=== PATIENT | female | born 2000 | race Caucasian/White ===

== ENCOUNTER 2023-10-20 11:00 | Outpatient (AMB) | payer BC, SELFPAY ==
--- NOTE | 2023-10-20 11:05 | A.OFFVIS_ITS ---
Intake Vital Signs 10/20/23 11:17 Height 5 ft 4 in Weight 168 lb BMI 28.8 BP 124/76 Blood Pressure Location Lt brachial Position Sitting Respiration 17 Pulse 88 Pulse Source Pulse Oximeter Pulse Oximetry (%) 98 Oxygen Delivery Method Room Air Intake Visit Reasons: Herniation of Lumbar Muscles/confirmed Allergies No Known Allergies Allergy (Verified 10/20/23 11:09) HPI HPI Comments History of Present Illness Details Stephenie is a very pleasant 24-year-old female who presents the office today for evaluation management of her chronic lower back pain. Patient reports that she has been suffering with pain across her lower back, with occasional radiation up into her middle back, for approximately 3 years. She states she had a lipoma removed in 2019 and the pain started about 6 months after that. She denies radiation of the pain into the buttocks, groin or either leg. She is currently taking Tylenol and Advil for the pain. She tried Celebrex in the past but did not tolerate it. She has attempted physical therapy without relief of her pain, she continues with home exercise program. Approximately 6 months ago she tried manual manipulation with chiropractor and acupuncture, neither of which improved her pain. She does use heat and ice packs at home with some relief of her pain. She was evaluated several months ago by the surgeon who removed the lipoma, an MRI was performed, results as per below. Patient also complaining of burning, aching, stabbing, pins and needles to both feet. Patient is known type 1 diabetic but reports that her A1c daily blood glucose levels are well controlled. She reports that her father has a history of non diabetic neuropathy. She was recently fitted for orthotics from her primary care doctor and is being treated for plantar fascitis. Patient denies red flag symptoms including new loss of bowel, bladder or saddle anesthesia. Pain today is rated as a 5/10, constant in frequency, worse during the day and in the evening. In terms of muscle damage condition is described as aching, spasming, tiring, exhausting and throbbing. Pain is negatively impacting patient's general activity, mood, normal work, recreational activities, sleep, walking and bending over. 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 [facility] Medical History (Updated 10/20/23 @ 12:59 by Brisa Verdugo, REMEDIATION CONSULTANT, BOOK SEWER) Herpes simplex type 1 infection Type 1 diabetes mellitus Moderate recurrent major depression Generalized anxiety disorder Polycystic ovary Social History (Updated 10/20/23 @ 11:17 by Christiane Farmer) Household Members: Spouse Housing: Apartment Alcohol intake: current Patient Tobacco Use Status: Never used Tobacco Substance Use Type: Marijuana and Caffiene service: No Current occupational status: unemployed Review of Systems Const All systems reviewed & are unremarkable except as noted in HPI and below Physical Exam Vital Signs: Last Vital Signs Pulse 88 10/20/23 11:17 Resp 17 10/20/23 11:17 BP 124/76 10/20/23 11:17 Pulse Ox 98 10/20/23 11:17 Oxygen Delivery Method Room Air 10/20/23 11:17 BMI result Body Mass Index 28.8 General: awake, alert, oriented. Answers questions appropriately. Fully engaged in examination. Skin: warm, dry, intact HEENT: Normocephalic. Hearing intact. Cardiac: External chest normal in appearance. Respiratory: No cough, audible wheezing or stridor. Abdomen: without gross distension. MS: No obvious swelling or deformities. Able to stand on bilateral tiptoes and bilateral heels.? Able to transition from sit to stand unassisted. Ambulates with bilaterally normal heel strike and toe off Diffuse tenderness across the lower back, nontender over midline lumbar vertebrae SLR with without dorsiflexion negative bilaterally ROM intact Neurological: Oriented to person, place, time and situation. Thought process intact. No gait abnormalities appreciated. Psychiatric: Appropriate mood and affect. Good judgment and insight. Results Reviewed Results Reviewed: 08/10/2023 MRI lumbar spine with and without contrast Lumbar findings: Alignment and vertebrae normal. No compression fracture. Left facet arthropathy L2-3, L3-4 and L4-5. Impression: No focal soft tissue mass or collection corresponding to the 2 skin markers present along the bilateral lower lumbar regions. Mild linear subcutaneous signal abnormality subjacent to the left skin marker extending to the skin surface may reflect postsurgical change from reported prior lipoma excision. Assessment & Plan Assessment & Plan (1) Myofascial muscle pain: Code(s): M79.18 - Myalgia, other site (2) Lumbar facet arthropathy: Code(s): M47.816 - Spondylosis without myelopathy or radiculopathy, lumbar region (3) Diabetic peripheral neuropathy: Code(s): E11.42 - Type 2 diabetes mellitus with diabetic polyneuropathy Plan Stephenie is a very pleasant 23-year-old female presented to the office today for evaluation management of her chronic back pain. History, physical exam and provocative testing consistent with myofascial back pain, lumbar facet arthropathy and diabetic neuropathy. Patient has tried xmje-wys-[id number] medications, physical therapy, acupuncture and chiropractor without improvement her symptoms. Gabapentin 100 mg by mouth 3 times daily. Patient instructed on cautions for use. Cyclobenzaprine 5 mg by mouth 3 times daily as needed for muscle spasms. Patient instructed on cautions for use. Diclofenac 1% topical apply 4 times daily as needed. Do not take with any other nonsteroidal anti-inflammatory medications. TENS unit ordered. Patient instructed on use, pamphlet with instructions provided to patient. All questions and concerns are answered during visit. Patient presents plan. Follow-up in 1 month, sooner if needed. Medications: New gabapentin 100 mg PO TID 90 caps 1RF diclofenac sodium 1% (Arthritis Pain (diclofenac)) apply to single knee, ankle, foot; for foot includes sole/toes/top of foot 4 grams topical QID 100 grams 0RF cyclobenzaprine 5 mg PO TID PRN 90 tabs 0RF muscle spasm Coding Level of Care Code New Pt Level 4 (82016) Diagnoses Myofascial muscle pain M79.18 Lumbar facet arthropathy M47.816 Diabetic peripheral neuropathy E11.42
[2023-10-20 11:17] VITALS: BP 124/76; PULSE 88; RESP 17; O2SAT 98; BMI 28.8
== END 2023-10-20 11:54 | disposition home or self-care (01) ==
PROVIDERS: PCP Family Medicine; Referring Provider Family Medicine; Visit Provider Registered Nurse Emergency
DX: M79.18 Myalgia, other site (principal); M47.816 Spondylosis without myelopathy or radiculopathy, lumbar region; E11.42 Type 2 diabetes mellitus with diabetic polyneuropathy
CPT/HCPCS: 99204

== ENCOUNTER → 2023-10-20 11:00 | Outpatient (BNVA) | payer BC, SELFPAY | PROVIDERS: PCP Family Medicine; Referring Provider Family Medicine; Visit Provider Registered Nurse Emergency ==

== ENCOUNTER 2023-11-17 11:30 | Outpatient (AMB) | payer BC, SELFPAY ==
[2023-11-17 11:33] VITALS: BP 130/94; PULSE 98; O2SAT 99; BMI 29.5
--- NOTE | 2023-11-17 11:33 | MHC.OFFVIS ---
Intake Vital Signs 11/17/23 11:33 Height 5 ft 4 in Weight 172 lb BMI 29.5 BP 130/94 H Blood Pressure Location Lt radial Position Sitting Pulse 98 Pulse Source Pulse Oximeter Pulse Oximetry (%) 99 Oxygen Delivery Method Room Air Intake Visit Reasons: Follow Up/Herniation of Lumbar Muscles - LVM Intake Note: Patient reports pain level being a 7/10. 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 Patient reports some relief with gabapentin, denies side effects. States no change in her pain with Flexeril. She is still awaiting Tens unit as it was originally sent to the wrong address and needed to be reshipped. She was recently diagnosed with Endometriosis, undergoing treatment for that with plan for HRT. Prior: Stephenie is a very pleasant 24-year-old female who presents the office today for evaluation management of her chronic lower back pain. Patient reports that she has been suffering with pain across her lower back, with occasional radiation up into her middle back, for approximately 3 years. She states she had a lipoma removed in 2019 and the pain started about 6 months after that. She denies radiation of the pain into the buttocks, groin or either leg. She is currently taking Tylenol and Advil for the pain. She tried Celebrex in the past but did not tolerate it. She has attempted physical therapy without relief of her pain, she continues with home exercise program. Approximately 6 months ago she tried manual manipulation with chiropractor and acupuncture, neither of which improved her pain. She does use heat and ice packs at home with some relief of her pain. She was evaluated several months ago by the surgeon who removed the lipoma, an MRI was performed, results as per below. Patient also complaining of burning, aching, stabbing, pins and needles to both feet. Patient is known type 1 diabetic but reports that her A1c daily blood glucose levels are well controlled. She reports that her father has a history of non diabetic neuropathy. She was recently fitted for orthotics from her primary care doctor and is being treated for plantar fascitis. Patient denies red flag symptoms including new loss of bowel, bladder or saddle anesthesia. Pain today is rated as a 5/10, constant in frequency, worse during the day and in the evening. In terms of muscle damage condition is described as aching, spasming, tiring, exhausting and throbbing. Pain is negatively impacting patient's general activity, mood, normal work, recreational activities, sleep, walking and bending over. 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 [facility] Medical History (Updated 10/20/23 @ 12:59 by Brisa Verdugo, AGENT CONTRACT CLERK, BOTTLE FILLER) Herpes simplex type 1 infection Type 1 diabetes mellitus Moderate recurrent major depression Generalized anxiety disorder Polycystic ovary Social History (Updated 10/20/23 @ 11:17 by Christiane Farmer) Household Members: Spouse Housing: Apartment Alcohol intake: current Patient Tobacco Use Status: Never used Tobacco Substance Use Type: Marijuana and Caffiene service: No Current occupational status: unemployed Review of Systems Const All systems reviewed & are unremarkable except as noted in HPI and below Physical Exam Vital Signs: Last Vital Signs Pulse 98 11/17/23 11:33 BP 130/94 H 11/17/23 11:33 Pulse Ox 99 11/17/23 11:33 Oxygen Delivery Method Room Air 11/17/23 11:33 BMI result Body Mass Index 29.5 General: awake, alert, oriented. Answers questions appropriately. Fully engaged in examination. Skin: warm, dry, intact HEENT: Normocephalic. Hearing intact. Cardiac: External chest normal in appearance. Respiratory: No cough, audible wheezing or stridor. Abdomen: without gross distension. MS: No obvious swelling or deformities. Able to transition from sit to stand unassisted. Ambulates with bilaterally normal heel strike and toe off SLR with without dorsiflexion negative bilaterally ROM intact Facet loading positive Neurological: Oriented to person, place, time and situation. Thought process intact. No gait abnormalities appreciated. Psychiatric: Appropriate mood and affect. Good judgment and insight. Results Reviewed Results Reviewed: 03/2023 [facility] Consult note: Assessment & Plan Assessment & Plan (1) Myofascial muscle pain: Code(s): M79.18 - Myalgia, other site (2) Lumbar facet arthropathy: Code(s): M47.816 - Spondylosis without myelopathy or radiculopathy, lumbar region (3) Diabetic peripheral neuropathy: Code(s): E11.42 - Type 2 diabetes mellitus with diabetic polyneuropathy Plan Stephenie is a very pleasant 23-year-old female presented to the office today for follow up. Patient has failed conservative therapy including ujoa-khy-zkjhwzh medications, physical therapy, HEP, acupuncture and chiropractor; pain persists. Will increase gabapentin to 300mg po BID C/W Cyclobenzaprine 5 mg by mouth 3 times daily as needed for muscle spasms. Consider changing to Tizanidine 2mg po BID if patient does not report improvement in symptoms by next visit. C/W Diclofenac 1% topical apply 4 times daily as needed. Do not take with any other nonsteroidal anti-inflammatory medications. TENS unit ordered at last visit. Patient instructed on use, pamphlet with instructions provided to patient. Discussed options for treatment including diagnostic interventional testing, epidural steroid injections, peripheral nerve stimulation with Sprint, RFA and more permanent neuromodulation. Will schedule for Fluoroscopy guided bilateral diagnostic L3 L4 DR L5 MBBs with local anesthetic. All questions and concerns have been answered and patient agrees with the plan. Follow up after injections and sooner if needed. Medications: New gabapentin 300 mg PO BID 60 caps 2RF Coding Level of Care Code Est Pt Level 4 (40367) Diagnoses Myofascial muscle pain M79.18 Lumbar facet arthropathy M47.816 Diabetic peripheral neuropathy E11.42
== END 2023-11-17 11:52 | disposition home or self-care (01) ==
PROVIDERS: PCP Family Medicine; Visit Provider Registered Nurse Emergency
DX: M79.18 Myalgia, other site (principal); M47.816 Spondylosis without myelopathy or radiculopathy, lumbar region; E11.42 Type 2 diabetes mellitus with diabetic polyneuropathy
CPT/HCPCS: 99214

== ENCOUNTER → 2023-11-17 11:30 | Outpatient (BNVA) | payer BC, SELFPAY | PROVIDERS: PCP Family Medicine; Visit Provider Registered Nurse Emergency ==

== ENCOUNTER 2024-01-16 06:12 | Outpatient (REF) | payer BC, SELFPAY ==
--- NOTE | ~2024-01-16 | FL_ITS ---
EXAMINATION: XR FLUOROSCOPY WITH IMAGES CLINICAL INFORMATION: Bilateral lumbar pain injections. COMPARISON: None available. TECHNIQUE: Fluoroscopy Supervised By: Dr. Glenis Post. Fluoroscopy Time: 0.6. Cumulative Dose: 8.32 mGy. DAP: 2.27 Gycm2. Images: 6. FINDINGS: The submitted images show injection needles and injected contrast at the levels of the bilateral L3-L4 through L5-S1 neural foramina. FL/FL guidance in treatment room IMPRESSION: Intraoperative fluoroscopic guidance is provided during lumbar pain management injections. Please see the patient's Operative Report for full procedural details.
== END 2024-01-16 06:13 | disposition home or self-care (01) ==
LOC: CF 06:12
PROVIDERS: Visit Provider Anesthesiology
DX: M47.816 Spondylosis without myelopathy or radiculopathy, lumbar region (principal)
CPT/HCPCS: 64493; 64494; J2795; Q9967

== ENCOUNTER 2024-01-16 09:31 | Outpatient (AMB) | payer BC, SELFPAY ==
[2024-01-16 09:40] VITALS: BP 118/60; PULSE 117; RESP 14; O2SAT 98; BMI 29.2
--- NOTE | 2024-01-16 09:40 | A.OFFVIS_ITS ---
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: No Accompanied by: Spouse Allergies No Known Allergies Allergy (Verified 01/16/24 09:41) [facility] Medical History (Updated 10/20/23 @ 12:59 by Brisa Verdugo, METAL CASTING TRADES WORKER, ACCOUNTANT MANAGER) Herpes simplex type 1 infection Type 1 diabetes mellitus Moderate recurrent major depression Generalized anxiety disorder Polycystic ovary Social History (Updated 10/20/23 @ 11:17 by Christiane Farmer) Household Members: Spouse Housing: Apartment Alcohol intake: current Patient Tobacco Use Status: Never used Tobacco Substance Use Type: Marijuana and Caffiene service: No Current occupational status: unemployed Physical Exam Vital Signs: Last Vital Signs Pulse 117 H 01/16/24 09:40 Resp 14 01/16/24 09:40 BP 118/60 01/16/24 09:40 Pulse Ox 98 01/16/24 09:40 Oxygen Delivery Method Room Air 01/16/24 09:40 BMI result Body Mass Index 29.2 Assessment & Plan Assessment & Plan (1) Lumbar facet arthropathy: Code(s): M47.816 - Spondylosis without myelopathy or radiculopathy, lumbar region Plan Diagnostic medial branch block L3,L4 dorsal ramus L5 bilateral.? ? ?Informed consent was explained to the patient. All questions were explained and? answered.? The patient was taken inside the operating room where she was positioned prone on the operating table. Time-out was performed delineating correct site, side, the nature of the procedure, patient's allergy, . All operating room staff was participating in OR time-out procedure. ? ? The lower back was prepped with ChloraPrep and draped with sterile towels.? C-arm was brought over the operating field and sq picture of L4-, L5 vertebra and S1 AREA were delineated on the screen.? Point of interest were delineated as confluence of superior articular process of L4 and L5 vertebra bilaterally with corresponding transverse processes as well as confluence of the sacral alae bilaterally with superior articular process of S1.? The projection of the point of interest to the skin were injected with the small amount of local anesthetic lidocaine 2% 1-1.5 cc.? After that 22 gauge 3.5 inch spinal needle was driven sequentially to the points of interest in tunnel vision fashion. At the left L4 position the silhouette of the left transverse process appear to be very thin, advancement of the needle resulted in paresthesia burning painful sensation going down the left lower extremity all the way to her toes. The needle was immediately withdrawn , the patient reported the pain subsiding. I offered patient to stop the procedure and schedule it under sedation, I explained to the patient that most likely the needle when close to her left L3 peripheral nerve. Patient insisted on continuing the procedure. The needle was reinserted and redirected more to the center of the projection of the pedicle. After needles gently contacted the bone at the point of interests the needle was injected with small amount of the contrast.? The injection of the contrast did not demonstrate any intravascular or intrathecal spread of the contrast.? Injection of the ropivacaine 0.5% performed at each needle location.??The needles were withdrawn and Band-Aids were applied The patient tolerated procedure well, she denied any pain shooting down the lower extremity on the left she denied any numbness in the lower extremity she was able to demonstrate normal symmetrical strength of bilateral lower extremities. She went home without immediate complication. Orders: Orders FL guidance in treatment room Today M47.816 - Spondylosis without myelopathy or radiculopathy, lumbar region KERRI Yanes Medications: Refilled cyclobenzaprine 5 mg PO TID PRN 90 tabs 0RF muscle spasm Trey Maya MD Coding Level of Care Code Procedure Only Diagnoses Lumbar facet arthropathy M47.816
== END 2024-01-16 10:04 | disposition home or self-care (01) ==
LOC: HO.PMCPRC 09:31
PROVIDERS: PCP Family Medicine; Visit Provider Anesthesiology
DX: M47.816 Spondylosis without myelopathy or radiculopathy, lumbar region (principal)
CPT/HCPCS: 64493; 64494

== ENCOUNTER 2024-01-26 09:30 | Outpatient (AMB) | payer BC, SELFPAY ==
[2024-01-26 09:39] VITALS: BP 130/89; PULSE 94; RESP 18; O2SAT 97; BMI 29.2
--- NOTE | 2024-01-26 09:39 | MHC.OFFVIS ---
Intake Vital Signs 01/26/24 09:39 Height 5 ft 4 in Weight 170 lb BMI 29.2 BP 130/89 Blood Pressure Location Lt brachial Position Sitting Respiration 18 Pulse 94 Pulse Source Pulse Oximeter Pulse Oximetry (%) 97 Oxygen Delivery Method Room Air Intake Visit Reasons: BILATERAL DIAGNOSTIC L3, L4, DRL5 MBB Allergies No Known Allergies Allergy (Verified 01/26/24 09:39) HPI HPI Comments History of Present Illness Details Patient presents the office today for follow-up, 10 days status post bilateral diagnostic L3-L4 DR L5 medial branch blocks with local anesthetic. She reports pain today is 9/10, no relief after the injections. If anything they made it worse . According to the records injections were somewhat difficult, patient did not tolerate well and at one point there was question of irritation to the nerve with pain down the leg. 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 Continues with gabapentin, tolerating well. Has been taking Flexeril with some improvement, stopped for a couple days and notes that the muscle spasms worsened. Had recently requested a dose increase because she felt that the effects were not as good as they were initially. Prior: Stephenie presents back to the office today for follow up lower back pain. Patient reports some relief with gabapentin, denies side effects. States no change in her pain with Flexeril. She is still awaiting Tens unit as it was originally sent to the wrong address and needed to be reshipped. She was recently diagnosed with Endometriosis, undergoing treatment for that with plan for HRT. Prior: Stephenie is a very pleasant 24-year-old female who presents the office today for evaluation management of her chronic lower back pain. Patient reports that she has been suffering with pain across her lower back, with occasional radiation up into her middle back, for approximately 3 years. She states she had a lipoma removed in 2019 and the pain started about 6 months after that. She denies radiation of the pain into the buttocks, groin or either leg. She is currently taking Tylenol and Advil for the pain. She tried Celebrex in the past but did not tolerate it. She has attempted physical therapy without relief of her pain, she continues with home exercise program. Approximately 6 months ago she tried manual manipulation with chiropractor and acupuncture, neither of which improved her pain. She does use heat and ice packs at home with some relief of her pain. She was evaluated several months ago by the surgeon who removed the lipoma, an MRI was performed, results as per below. Patient also complaining of burning, aching, stabbing, pins and needles to both feet. Patient is known type 1 diabetic but reports that her A1c daily blood glucose levels are well controlled. She reports that her father has a history of non diabetic neuropathy. She was recently fitted for orthotics from her primary care doctor and is being treated for plantar fascitis. Patient denies red flag symptoms including new loss of bowel, bladder or saddle anesthesia. Pain today is rated as a 5/10, constant in frequency, worse during the day and in the evening. In terms of muscle damage condition is described as aching, spasming, tiring, exhausting and throbbing. Pain is negatively impacting patient's general activity, mood, normal work, recreational activities, sleep, walking and bending over. 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 [facility], [facility] Medical History (Updated 10/20/23 @ 12:59 by Brisa Verdugo, GARAGE DOOR OPENER INSTALLER, [employer]) Herpes simplex type 1 infection Type 1 diabetes mellitus Moderate recurrent major depression Generalized anxiety disorder Polycystic ovary Social History (Updated 10/20/23 @ 11:17 by Christiane Farmer) Household Members: Spouse Housing: Apartment Alcohol intake: current Patient Tobacco Use Status: Never used Tobacco Substance Use Type: Marijuana and Caffiene service: No Current occupational status: unemployed Review of Systems Const All systems reviewed & are unremarkable except as noted in HPI and below Physical Exam Vital Signs: Last Vital Signs Pulse 94 01/26/24 09:39 Resp 18 01/26/24 09:39 BP 130/89 01/26/24 09:39 Pulse Ox 97 01/26/24 09:39 Oxygen Delivery Method Room Air 01/26/24 09:39 BMI result Body Mass Index 29.2 General: awake, alert, oriented. Answers questions appropriately. Fully engaged in examination. Skin: warm, dry, intact HEENT: Normocephalic. Hearing intact. Cardiac: External chest normal in appearance. Respiratory: No cough, audible wheezing or stridor. Abdomen: without gross distension. MS: No obvious swelling or deformities. Able to transition from sit to stand unassisted. Ambulates with bilaterally normal heel strike and toe off SLR with without dorsiflexion negative bilaterally ROM intact Facet loading positive Neurological: Oriented to person, place, time and situation. Thought process intact. No gait abnormalities appreciated. Psychiatric: Appropriate mood and affect. Good judgment and insight. Results Reviewed Results Reviewed: 08/10/202303/2023 [facility] Consult note: Assessment & Plan Assessment & Plan (1) Myofascial muscle pain: Code(s): M79.18 - Myalgia, other site (2) Lumbar facet arthropathy: Code(s): M47.816 - Spondylosis without myelopathy or radiculopathy, lumbar region (3) Diabetic peripheral neuropathy: Code(s): E11.42 - Type 2 diabetes mellitus with diabetic polyneuropathy Plan Stephenie is a very pleasant 23-year-old female presented to the office today for follow up, 10 days status post L3-L4 DR L5 medial branch blocks with local anesthetic Patient has failed conservative therapy including [id number] medications, physical therapy, HEP, acupuncture and chiropractor; pain persists. Will increase gabapentin to 300mg po TID Discontinue Cyclobenzaprine, will trial tizanidine 2 mg by mouth 3 times daily as needed for muscle spasms. Patient advised on cautions for use. Continue with TENS unit ordered. Advised patient I will discuss with Dr. Maya potential repeat of her medial branch blocks under sedation versus repeating MRI to further evaluate the reported anatomical anomaly. All questions and concerns have been answered and patient agrees with the plan. Will call patient to review care plan after discussing with Dr. Maya. Medications: New tizanidine May cause drowsiness. Do not combine with alcohol or other BALLOON TESTER suppressants. Discontinue use of cyclobenzaprine before starting this medication. Hold for weakness, dizziness, syncope, slow heart rate or low blood pressure 2 mg PO TID PRN 90 tabs 3RF muscle spasticity Changed From gabapentin 300 mg PO BID 60 caps 2RF To gabapentin 300 mg PO Q8H 90 caps 2RF Coding Level of Care Code Est Pt Level 4 (65093) Diagnoses Myofascial muscle pain M79.18 Lumbar facet arthropathy M47.816 Diabetic peripheral neuropathy E11.42
== END 2024-01-26 10:13 | disposition home or self-care (01) ==
PROVIDERS: PCP Family Medicine; Visit Provider Registered Nurse Emergency
DX: M79.18 Myalgia, other site (principal); M47.816 Spondylosis without myelopathy or radiculopathy, lumbar region; E11.42 Type 2 diabetes mellitus with diabetic polyneuropathy
CPT/HCPCS: 99214

== ENCOUNTER → 2024-01-26 09:30 | Outpatient (BNVA) | payer BC, SELFPAY | PROVIDERS: PCP Family Medicine; Visit Provider Registered Nurse Emergency ==

== ENCOUNTER 2024-04-05 11:28 | Day surgery (SDC) | payer BC, SELFPAY ==
--- NOTE | 2024-04-04 10:04 | P.CONAN_ITS ---
Documented by User: Olena Dumont NP 04/04/24 10:05 HPI - Anesthesia Eval Consult details Narrative: 23yo F for Bilateral Diagnostic L3-L4 Dorsal Ramus L5 Medial Branch Block PMFSH Active Problems Active Problems: All Active Problems Diabetic peripheral neuropathy (Acute) Lumbar facet arthropathy (Acute) Myofascial muscle pain (Acute) Past Medical History Medical History (Updated 10/20/23 @ 12:59 by Brisa Verdugo, SALES SUPPORT ENGINEER, AUTO AIR CONDITIONING INSTALLER) Herpes simplex type 1 infection Type 1 diabetes mellitus Moderate recurrent major depression Generalized anxiety disorder Polycystic ovary Surgical History Surgical History (Updated 04/05/24 @ 11:50 by Mare Farfan) History of skin surgery H/O laparoscopy History of carpal tunnel release Social History Social History (Updated 10/20/23 @ 11:17 by Christiane Farmer) Household Members: Spouse Housing: Apartment Alcohol intake: current Alcohol intake frequency: a few times a month Patient Tobacco Use Status: Never used Tobacco Use of substances other than those prescribed or required for medical reasons: Yes Substance Use Type: Marijuana and Caffiene Substance Use Frequency: Daily Are you DNR?: No Advance Directives: No Advance Directives Information Provided: Yes service: No Current occupational status: unemployed Meds Allergies Allergy/AdvReac Type Severity Reaction Status Date / Time No Known Allergies Allergy Verified 04/05/24 11:50 Home Medications ?Medication ?Instructions ?Recorded ?Confirmed ?Last Taken ?Type acyclovir 400 mg tablet 400 mg PO BID 10/17/23 04/05/24 04/05/24 History blood sugar diagnostic (FreeStyle #10 ea 10/17/23 Unknown History Test strips) blood-glucose sensor (Dexcom G6 #1 ea 10/17/23 Unknown History Sensor device) blood-glucose transmitter (Dexcom #1 ea 10/17/23 Unknown History G6 Transmitter device) bupropion HCl 300 mg 24 hr tablet, 300 mg PO DAILY 10/17/23 04/05/24 04/05/24 History extended release fluconazole 150 mg tablet 150 mg PO DAILY PRN yeast 10/17/23 04/05/24 Unknown History infections fluticasone propionate 50 2 spray intranasal DAILY 10/17/23 04/05/24 Unknown History mcg/actuation nasal spray,suspension insulin aspart (niacinamide) See Rx Instructions .Route .COMPLEX 10/17/23 04/05/24 Unknown History (U-100) 100 unit/mL subcutaneous solution (Fiasp U-100 Insulin) insulin pump cart,automated,BT #5 ea 10/17/23 Unknown History (Omnipod 5 G6 Pods (Gen 5) subcutaneous cartridge) insulin pump cartridge,automated #1 ea 10/17/23 Unknown History dose,BT with controller subcutaneous (Omnipod 5 G6 Intro Kit (Gen 5) subcutaneous cartridge with controller) ondansetron HCl 8 mg tablet 8 mg PO TID 10/17/23 04/05/24 Unknown History pantoprazole 40 mg tablet,delayed 40 mg PO DAILY 10/17/23 04/05/24 04/05/24 Hi story release fluoxetine 20 mg capsule 60 mg PO QAM 04/05/24 04/05/24 04/05/24 History leuprolide 3.75 mg intramuscular 3.75 mg IM DIRECTED 04/05/24 04/05/24 Unknown History syringe kit (Lupron Depot) Assessment and Plan Assessment Anesthesia Assessment: Chart Reviewed Documented by User: Sasha Fischer MD 04/05/24 12:52 [facility] Past Medical History Medical History (Updated 10/20/23 @ 12:59 by Brisa Verdugo, SALES SUPPORT ENGINEER, AUTO AIR CONDITIONING INSTALLER) Herpes simplex type 1 infection Type 1 diabetes mellitus Moderate recurrent major depression Generalized anxiety disorder Polycystic ovary Family History Family history of problems with anesthesia: No Surgical History Surgical History (Updated 04/05/24 @ 11:50 by Mare Farfan) History of skin surgery H/O laparoscopy History of carpal tunnel release History of Problems with Anesthesia: No Social History Social History (Updated 10/20/23 @ 11:17 by Christiane Farmer) Household Members: Spouse Housing: Apartment Alcohol intake: current Alcohol intake frequency: a few times a month Patient Tobacco Use Status: Never used Tobacco Use of substances other than those prescribed or required for medical reasons: Yes Substance Use Type: Marijuana and Caffiene Substance Use Frequency: Daily Are you DNR?: No Advance Directives: No Advance Directives Information Provided: Yes service: No Current occupational status: unemployed Meds Allergies Allergy/AdvReac Type Severity Reaction Status Date / Time No Known Allergies Allergy Verified 04/05/24 11:50 Home Medications ?Medication ?Instructions ?Recorded ?Confirmed ?Last Taken ?Type acyclovir 400 mg tablet 400 mg PO BID 10/17/23 04/05/24 04/05/24 History blood sugar diagnostic (FreeStyle #10 ea 10/17/23 Unknown History Test strips) blood-glucose sensor (Dexcom G6 #1 ea 10/17/23 Unknown History Sensor device) blood-glucose transmitter (Dexcom #1 ea 10/17/23 Unknown History G6 Transmitter device) bupropion HCl 300 mg 24 hr tablet, 300 mg PO DAILY 10/17/23 04/05/24 04/05/24 History extended release fluconazole 150 mg tablet 150 mg PO DAILY PRN yeast 10/17/23 04/05/24 Unknown History infections fluticasone propionate 50 2 spray intranasal DAILY 10/17/23 04/05/24 Unknown History mcg/actuation nasal spray,suspension insulin aspart (niacinamide) See Rx Instructions .Route .COMPLEX 10/17/23 04/05/24 Unknown History (U-100) 100 unit/mL subcutaneous solution (Fiasp U-100 Insulin) insulin pump cart,automated,BT #5 ea 10/17/23 Unknown History (Omnipod 5 G6 Pods (Gen 5) subcutaneous cartridge) insulin pump cartridge,automated #1 ea 10/17/23 Unknown History dose,BT with controller subcutaneous (Omnipod 5 G6 Intro Kit (Gen 5) subcutaneous cartridge with controller) ondansetron HCl 8 mg tablet 8 mg PO TID 10/17/23 04/05/24 Unknown History pantoprazole 40 mg tablet,delayed 40 mg PO DAILY 10/17/23 04/05/24 04/05/24 History release fluoxetine 20 mg capsule 60 mg PO QAM 04/05/24 04/05/24 04/05/24 History leuprolide 3.75 mg intramuscular 3.75 mg IM DIRECTED 04/05/24 04/05/24 Unknown History syringe kit (Lupron Depot) Exam Airway Mallampati Class: III (limited mouth opening) TM Dist: >3cm Neck ROM: Full Heart: rrr Lungs: cta Assessment and Plan Assessment Anesthesia Assessment: Anesthesia Plan Discussed Final Anesthetic Review Family History of Problems with Anesthesia: No History of Problems with Anesthesia: No NPO: Yes ASA Class: III Final Preanesthetic Review: No Changes in Pt Med Stat, Meds/Allgs Chart Reviewed and Consent Obtained/Reviewed Patient Risk: Low Procedure Risk: Low Anesthetic Plan Anesthetic Plan: MAC: Disposition: Standard PACU
--- NOTE | ~2024-04-05 | FL_ITS ---
EXAMINATION: XR FLUOROSCOPY WITH IMAGES CLINICAL INFORMATION: L3-L4 DR L5 medial branch block. COMPARISON: None available. TECHNIQUE: Fluoroscopy Supervised By: Dr. Trey Maay. Fluoroscopy Time: 0.7 minutes. Cumulative Dose: 11.6 mGy. DAP: 3.16 Gy-cm2. Images: 9. FINDINGS: Intraoperative fluoroscopy and spot films were performed during a procedure in the OR. Imaging demonstrates multiple needles at the level of the foramen in the lower lumbosacral spine with contrast injected at each level. Please see Dr. Trey Maya's report for complete details. FL/FL guidance in OR IMPRESSION: Intraoperative fluoroscopy and spot films were obtained. Please see Dr. Trey Maya's report for complete details.
[2024-04-05 11:51] VITALS: BMI 31.0
[2024-04-05 12:07] LABS: UPreg QC Valid YES; Urine Pregnancy NEGATIVE (NEGATIVE)
[2024-04-05 12:09] VITALS: BP 121/84; PULSE 86; RESP 16; TEMP 36.9; O2SAT 99
[2024-04-05 12:11] LABS: Glucose, Whole Blood 213 mg/dL (60-115)
[2024-04-05] MEDS: Lactated Ringers 1,000 ML 100 ML IVCONT (12:26)
--- NOTE | 2024-04-05 12:58 | MHC.SHP ---
Pre-Procedural Eval Section A - 24 Hr Update-Section A only Date of Service: 04/05/24 The patient is an INPATIENT: No Changes since office visit: Yes Patient answered all questions The patient has been examined within 24 hours of the surgical procedure. The History & Physical has been completed within 30 days and I have reviewed it.: No Section B - Complete if H&P > 30 days Chief Complaint: Spondylosis without myelopathy or radiculopathy, Details of Present Illness: As above Relevant Family History (Specify if Yes): No Relevant Social History: None Present Medications: None Medical History: No relevant PMH History of Previous Operations: Relevant previous surgery/procedure and date(s) Allergies: Allergies Allergy/AdvReac Type Severity Reaction Status Date / Time No Known Allergies Allergy Verified 04/05/24 11:50 Review of Systems Sugical H&P ROS: Negative: Cardiovascular, Respiratory, Neurological, Psychiatric, Hem-Onc, Allergic/Immunologic, Gastrointestinal, Genitourinary, Musculoskeletal, Integumentary, Endocrine and Eyes/Ears/Nose/Throat and Yes, Specify: Constitution (Trivial obesity) Exam Surgical H&P Exam: Normal: HEENT, Normal: Heart, Normal: Lungs, Normal: Extremities, Normal: Abdomen, Normal: Skin and Normal: Neurological Plan Diagnosis/Plan: Unchanged I have reviewed the history and physical and performed a pertinent physical examination on my patient. No changes have occurred unless specified. Time Spent With Patient Time: Total time managing care of this patient today ____ minutes.
[2024-04-05 13:32] VITALS: BP 107/69; PULSE 83; RESP 16; TEMP 36.7; O2SAT 98
--- NOTE | 2024-04-05 13:34 | P.OP_ITS ---
Operative Note Operative Note Date of Service: 04/05/24 Narrative: Diagnostic medial branch block L3,L4 dorsal ramus L5 bilateral.? ? ?Informed consent was explained to the patient. All questions were explained and? answered.? The patient was taken inside the operating room where she was positioned prone on the operating table. Time-out was performed delineating correct site, side, the nature of the procedure, patient's allergy, . All operating room staff was participating in OR time-out procedure. [place] [employer] anesthesia monitors were applied and patient was deeply sedated. Fifty micro g of fentanyl was given during the sedation. ? The lower back was prepped with ChloraPrep and draped with sterile towels.? C- arm was brought over the operating field and sq picture of L4-, L5 vertebra and S1 AREA were delineated on the screen.? Point of interest were delineated as confluence of superior articular process of L4 and L5 vertebra bilaterally with corresponding transverse processes as well as confluence of the sacral alae bilaterally with superior articular process of S1.? The projection of the point of interest to the skin were injected with the small amount of local anesthetic lidocaine 2% 1-1.5 cc.? After that 22 gauge 3.5 inch spinal needle was driven sequentially to the points of interest in tunnel vision fashion. After needles gently contacted the bone at the point of interests the needle was injected with small amount of the contrast.? The injection of the contrast did not demonstrate any intravascular or intrathecal spread of the contrast.? Injection of the ropivacaine 0.5% no more than 1 cc performed at each needle location.??The needles were withdrawn and Band-Aids were applied The patient tolerated procedure well, she was brought to PACU for recovery.
--- NOTE | 2024-04-05 13:37 | PM.OP ---
Brief Operative Note Date of Service: 04/05/24 Pre-op diagnosis: Spondylosis lumbar without myelopathy or radiculopathy Post-op diagnosis: same Procedure: L3, L4 , dorsal ramus L5 bilateral medial branch block Surgeon: Trey Maya MD Anesthesia: MAC Was an Electrician Apprentice Powerhouse used for this Procedure?: No Estimated blood loss (mL): 2 Condition: stable Disposition: PACU
[2024-04-05 13:45] VITALS: BP 112/80; PULSE 83; RESP 16; O2SAT 98
[2024-04-05 14:00] VITALS: BP 115/83; PULSE 82; RESP 16; TEMP 36.1; O2SAT 100
== END 2024-04-05 13:25 | disposition home or self-care (01) ==
PROVIDERS: Registered Nurse Emergency; PCP Physician Assistant; Visit Provider Anesthesiology
PROC: (CPT 64493; principal; 2024-04-05 13:30)
DX: M47.816 Spondylosis without myelopathy or radiculopathy, lumbar region (principal); E10.8 Type 1 diabetes mellitus with unspecified complications; Z79.4 Long term (current) use of insulin; Z96.41 Presence of insulin pump (external) (internal); Z79.899 Other long term (current) drug therapy
CPT/HCPCS: 64493; 64494; 81025; 82947; J2250; J2704; J2795; J3010; Q9967

== ENCOUNTER → 2024-04-05 11:28 | Outpatient (BNV) | payer BC, SELFPAY | PROVIDERS: PCP Physician Assistant; Visit Provider Anesthesiology | DX: M47.816 Spondylosis without myelopathy or radiculopathy, lumbar region (principal) | CPT/HCPCS: 64493; 64494 ==

== ENCOUNTER 2024-04-12 13:18 | Outpatient (AMB) | payer BC, SELFPAY ==
[2024-04-12 13:29] VITALS: BP 131/84; PULSE 111; RESP 18; O2SAT 98; BMI 29.7
--- NOTE | 2024-04-12 13:29 | A.OFFVIS_ITS ---
Vital Signs 3 04/12/24 13:29 Height 5 ft 4 in Weight 173 lb 2 oz BMI 29.7 BP 131/84 Blood Pressure Location Lt brachial Position Sitting Respiration 18 Pulse 111 H Pulse Source Pulse Oximeter Pulse Oximetry (%) 98 Oxygen Delivery Method Room Air Intake Visit Reasons: S/p B/l Dx L3-L4-DRL5 MBB 04/05/24 Allergies No Known Allergies Allergy (Verified 04/12/24 13:29) HPI Comments Details: Stephenie presents back to the office today for follow-up 1 week status post bilateral diagnostic L3-L4 DR L5 MBB with sedation. She reports no improvement in her pain, functional mobility since the procedure Pain today rated as 7/10, constant. She has appointment in 1 month for EMG, was supposed to have done today but she sprained her ankle so they postponed it. Had appointment with Rheumatology, she is being worked up for fibromyalgia and Slade-Danlos syndrome. HRT was started for endometriosis without improvement of her symptoms. They are trying a new injection which she just started. Prior: Patient presents the office today for follow-up, 10 days status post bilateral diagnostic L3-L4 DR L5 medial branch blocks with local anesthetic. She reports pain today is 9/10, no relief after the injections. If anything they made it worse . According to the records injections were somewhat difficult, patient did not tolerate well and at one point there was question of irritation to the nerve with pain down the leg. 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 Continues with gabapentin, tolerating well. Has been taking Flexeril with some improvement, stopped for a couple days and notes that the muscle spasms worsened. Had recently requested a dose increase because she felt that the effects were not as good as they were initially. Prior: Stephenie presents back to the office today for follow up lower back pain. Patient reports some relief with gabapentin, denies side effects. States no change in her pain with Flexeril. She is still awaiting Tens unit as it was originally sent to the wrong address and needed to be reshipped. She was recently diagnosed with Endometriosis, undergoing treatment for that with plan for HRT. Prior: Stephenie is a very pleasant 24-year-old female who presents the office today for evaluation management of her chronic lower back pain. Patient reports that she has been suffering with pain across her lower back, with occasional radiation up into her middle back, for approximately 3 years. She states she had a lipoma removed in 2019 and the pain started about 6 months after that. She denies radiation of the pain into the buttocks, groin or either leg. She is currently taking Tylenol and Advil for the pain. She tried Celebrex in the past but did not tolerate it. She has attempted physical therapy without relief of her pain, she continues with home exercise program. Approximately 6 months ago she tried manual manipulation with chiropractor and acupuncture, neither of which improved her pain. She does use heat and ice packs at home with some relief of her pain. She was evaluated several months ago by the surgeon who removed the lipoma, an MRI was performed, results as per below. Patient also complaining of burning, aching, stabbing, pins and needles to both feet. Patient is known type 1 diabetic but reports that her A1c daily blood glucose levels are well controlled. She reports that her father has a history of non diabetic neuropathy. She was recently fitted for orthotics from her primary care doctor and is being treated for plantar fascitis. Patient denies red flag symptoms including new loss of bowel, bladder or saddle anesthesia. Pain today is rated as a 5/10, constant in frequency, worse during the day and in the evening. In terms of muscle damage condition is described as aching, spasming, tiring, exhausting and throbbing. Pain is negatively impacting patient's general activity, mood, normal work, recreational activities, sleep, walking and bending over. 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 [facility] Medical History (Updated 10/20/23 @ 12:59 by Brisa Verdugo, LEAD MAN OVER [employer] IN [employer], YOUTH SUPPORT WORKER) Herpes simplex type 1 infection Type 1 diabetes mellitus Moderate recurrent major depression Generalized anxiety disorder Polycystic ovary Surgical History (Updated 04/05/24 @ 11:50 by Mare Farfan) History of skin surgery H/O laparoscopy History of carpal tunnel release Social History (Updated 10/20/23 @ 11:17 by Christiane Farmer) Household Members: Spouse Housing: Apartment Alcohol intake: current Alcohol intake frequency: a few times a month Patient Tobacco Use Status: Never used Tobacco Substance Use Type: Marijuana and Caffiene service: No Current occupational status: unemployed Review of Systems Const All systems reviewed & are unremarkable except as noted in HPI and below Physical Exam Vital Signs: Last Vital Signs Pulse 111 H 04/12/24 13:29 Resp 18 04/12/24 13:29 BP 131/84 04/12/24 13:29 Pulse Ox 98 04/12/24 13:29 Oxygen Delivery Method Room Air 04/12/24 13:29 BMI result Body Mass Index 29.7 General: awake, alert, oriented. Answers questions appropriately. Fully engaged in examination. Skin: warm, dry, intact HEENT: Normocephalic. Hearing intact. Cardiac: External chest normal in appearance. Respiratory: No cough, audible wheezing or stridor. Abdomen: without gross distension. MS: No obvious swelling or deformities. Able to transition from sit to stand unassisted. Ambulates with bilaterally normal heel strike and toe off Neurological: Oriented to person, place, time and situation. Thought process intact. No gait abnormalities appreciated. Psychiatric: Appropriate mood and affect. Good judgment and insight. Results Reviewed Results Reviewed: 08/10/202303/2023 [facility] Consult note: Assessment & Plan Assessment & Plan (1) Myofascial muscle pain: Code(s): M79.18 - Myalgia, other site Category: Medical (2) Lumbar facet arthropathy: Code(s): M47.816 - Spondylosis without myelopathy or radiculopathy, lumbar region Category: Medical (3) Diabetic peripheral neuropathy: Code(s): E11.42 - Type 2 diabetes mellitus with diabetic polyneuropathy Category: Medical Plan Stephenie is a very pleasant 23-year-old female presented to the office today for follow up, one-week status post L3-L4 DR L5 medial branch blocks with sedation She reports no improvement of her pain, functional mobility since the injections Patient has failed conservative therapy including [id number] medications, physical therapy, HEP, acupuncture and chiropractor; pain persists. Continue with gabapentin to 300mg po TID Will increase cyclobenzaprine to 10 mg p.o. t.i.d. as needed. Patient advised on cautions for use. Follow up for EMG and EDS screening as planned. Continue with treatment for endometriosis. All questions and concerns have been answered and patient agrees with the plan. Follow up in 3 months, sooner if needed Medications: Changed 2 From cyclobenzaprine 5 mg PO TID PRN 90 tabs 3RF muscle spasm To cyclobenzaprine 5 mg (1/2 x 10 mg) PO TID PRN 90 tabs 3RF muscle spasm Refilled 2 gabapentin 300 mg PO Q8H 90 caps 3RF Coding Level of Care Code Est Pt Level 3 (81535) Diagnoses Myofascial muscle pain M79.18 Lumbar facet arthropathy M47.816 Diabetic peripheral neuropathy E11.42
== END 2024-04-12 13:55 | disposition home or self-care (01) ==
PROVIDERS: PCP Family Medicine; Visit Provider Registered Nurse Emergency
DX: M79.18 Myalgia, other site (principal); M47.816 Spondylosis without myelopathy or radiculopathy, lumbar region; E11.42 Type 2 diabetes mellitus with diabetic polyneuropathy
CPT/HCPCS: 99213

== ENCOUNTER → 2024-04-12 13:18 | Outpatient (BNVA) | payer BC, SELFPAY | PROVIDERS: PCP Family Medicine; Visit Provider Registered Nurse Emergency ==

== ENCOUNTER 2024-06-12 13:30 | Outpatient (AMB) | payer BC, SELFPAY ==
[2024-06-12 13:34] VITALS: BP 147/91; PULSE 115; O2SAT 99; BMI 30.6
--- NOTE | 2024-06-12 13:34 | MHC.OFFVIS ---
Vital Signs 06/12/24 13:34 Height 5 ft 4 in Weight 178 lb BMI 30.6 BP 147/91 H Blood Pressure Location Rt radial Position Sitting Pulse 115 H Pulse Source Pulse Oximeter Pulse Oximetry (%) 99 Oxygen Delivery Method Room Air Intake Visit Reasons: 2 month follow up Allergies No Known Allergies Allergy (Verified 06/12/24 13:37) Medication List - Last Reconciled 06/12/24 by Zuleyma Kapoor acyclovir 400 mg PO BID blood sugar diagnostic (FreeStyle Test strips) As directed blood-glucose sensor (Dexcom G6 Sensor device) As directed blood-glucose transmitter (Dexcom G6 Transmitter device) As directed bupropion HCl XL 300 mg PO DAILY cyclobenzaprine 5 mg (1/2 x 10 mg) PO TID PRN fluconazole 150 mg PO DAILY PRN fluoxetine 60 mg PO QAM fluticasone propionate 50 mcg/actuation 2 sprays intranasal DAILY gabapentin 300 mg PO Q8H insulin aspart (niacinamide) 100 unit/mL (Fiasp U-100 Insulin) Omnipod pump insulin pump cart,auto,BT-cntr (Omnipod 5 G6 Intro Kit (Gen 5) subcutaneous cartridge with controller) As directed insulin pump cart,automated,BT (Omnipod 5 G6 Pods (Gen 5) subcutaneous cartridge) As directed leuprolide (Lupron Depot) 3.75 mg IM DIRECTED norethindrone acetate 5 mg PO DAILY ondansetron HCl 8 mg PO TID pantoprazole 40 mg PO DAILY HPI Comments Details: Stephenie presents back to the office today for follow-up. Continues with 6/10 back pain Has been taking 300 mg of gabapentin 3 times daily and 5 mg of cyclobenzaprine 3 times daily with some improvement of her pain Previous attempts and injections did not offer any relief She would like to discuss adjusting medications at this time Prior: Stephenie presents back to the office today for follow-up 1 week status post bilateral diagnostic L3-L4 DR L5 MBB with sedation. She reports no improvement in her pain, functional mobility since the procedure Pain today rated as 7/10, constant. She has appointment in 1 month for EMG, was supposed to have done today but she sprained her ankle so they postponed it. Had appointment with Rheumatology, she is being worked up for fibromyalgia and Slade-Danlos syndrome. HRT was started for endometriosis without improvement of her symptoms. They are trying a new injection which she just started. Prior: Patient presents the office today for follow-up, 10 days status post bilateral diagnostic L3-L4 DR L5 medial branch blocks with local anesthetic. She reports pain today is 9/10, no relief after the injections. If anything they made it worse . According to the records injections were somewhat difficult, patient did not tolerate well and at one point there was question of irritation to the nerve with pain down the leg. 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 Continues with gabapentin, tolerating well. Has been taking Flexeril with some improvement, stopped for a couple days and notes that the muscle spasms worsened. Had recently requested a dose increase because she felt that the effects were not as good as they were initially. Prior: Stephenie presents back to the office today for follow up lower back pain. Patient reports some relief with gabapentin, denies side effects. States no change in her pain with Flexeril. She is still awaiting Tens unit as it was originally sent to the wrong address and needed to be reshipped. She was recently diagnosed with Endometriosis, undergoing treatment for that with plan for HRT. Prior: Stephenie is a very pleasant 24-year-old female who presents the office today for evaluation management of her chronic lower back pain. Patient reports that she has been suffering with pain across her lower back, with occasional radiation up into her middle back, for approximately 3 years. She states she had a lipoma removed in 2019 and the pain started about 6 months after that. She denies radiation of the pain into the buttocks, groin or either leg. She is currently taking Tylenol and Advil for the pain. She tried Celebrex in the past but did not tolerate it. She has attempted physical therapy without relief of her pain, she continues with home exercise program. Approximately 6 months ago she tried manual manipulation with chiropractor and acupuncture, neither of which improved her pain. She does use heat and ice packs at home with some relief of her pain. She was evaluated several months ago by the surgeon who removed the lipoma, an MRI was performed, results as per below. Patient also complaining of burning, aching, stabbing, pins and needles to both feet. Patient is known type 1 diabetic but reports that her A1c daily blood glucose levels are well controlled. She reports that her father has a history of non diabetic neuropathy. She was recently fitted for orthotics from her primary care doctor and is being treated for plantar fascitis. Patient denies red flag symptoms including new loss of bowel, bladder or saddle anesthesia. Pain today is rated as a 5/10, constant in frequency, worse during the day and in the evening. In terms of muscle damage condition is described as aching, spasming, tiring, exhausting and throbbing. Pain is negatively impacting patient's general activity, mood, normal work, recreational activities, sleep, walking and bending over. 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 [facility] Medical History (Updated 10/20/23 @ 12:59 by Brisa Verdugo APRN, SENIOR ACCOUNT REPRESENTATIVE) Herpes simplex type 1 infection Type 1 diabetes mellitus Moderate recurrent major depression Generalized anxiety disorder Polycystic ovary Surgical History (Updated 04/05/24 @ 11:50 by Mare Farfan RN) History of skin surgery H/O laparoscopy History of carpal tunnel release Social History (Updated 10/20/23 @ 11:17 by Christiane Farmer) Household Members: Spouse Housing: Apartment Alcohol intake: current Alcohol intake frequency: a few times a month Patient Tobacco Use Status: Never used Tobacco Substance Use Type: Marijuana and Caffiene service: No Current occupational status: unemployed Review of Systems Const All systems reviewed & are unremarkable except as noted in HPI and below Physical Exam Vital Signs: Last Vital Signs Pulse 115 H 06/12/24 13:34 BP 147/91 H 06/12/24 13:34 Pulse Ox 99 06/12/24 13:34 Oxygen Delivery Method Room Air 06/12/24 13:34 BMI result Body Mass Index 30.6 General: awake, alert, oriented. Answers questions appropriately. Fully engaged in examination. Skin: warm, dry, intact HEENT: Normocephalic. Hearing intact. Cardiac: External chest normal in appearance. Respiratory: No cough, audible wheezing or stridor. Abdomen: without gross distension. MS: No obvious swelling or deformities. Able to transition from sit to stand unassisted. Ambulates with bilaterally normal heel strike and toe off Neurological: Oriented to person, place, time and situation. Thought process intact. No gait abnormalities appreciated. Psychiatric: Appropriate mood and affect. Good judgment and insight. Results Reviewed Results Reviewed: 08/10/202303/2023 [facility] Consult note: Assessment & Plan Assessment & Plan (1) Myofascial muscle pain: Code(s): M79.18 - Myalgia, other site Category: Medical (2) Lumbar facet arthropathy: Code(s): M47.816 - Spondylosis without myelopathy or radiculopathy, lumbar region Category: Medical (3) Diabetic peripheral neuropathy: Code(s): E11.42 - Type 2 diabetes mellitus with diabetic polyneuropathy Category: Medical Plan Stephenie is a very pleasant 23-year-old female presented to the office today for follow up Will increase gabapentin to 600 mg twice daily. Continue with cyclobenzaprine 5 mg p.o. t.i.d. as needed All questions and concerns have been answered and patient agrees with the plan. Follow up in 2 months, sooner if needed Medications: New gabapentin 600 mg PO BID 60 tabs 3RF Discontinued gabapentin Discontinued Reason: None 300 mg PO Q8H 90 caps 3RF Coding Level of Care Code Est Pt Level 4 (08871) Diagnoses Myofascial muscle pain M79.18 Lumbar facet arthropathy M47.816 Diabetic peripheral neuropathy E11.42
== END 2024-06-12 14:05 | disposition home or self-care (01) ==
PROVIDERS: PCP Family Medicine; Visit Provider Registered Nurse Emergency
DX: M79.18 Myalgia, other site (principal); M47.816 Spondylosis without myelopathy or radiculopathy, lumbar region; E11.42 Type 2 diabetes mellitus with diabetic polyneuropathy
CPT/HCPCS: 99214

== ENCOUNTER → 2024-06-12 13:30 | Outpatient (BNVA) | payer BC, SELFPAY | PROVIDERS: PCP Family Medicine; Visit Provider Registered Nurse Emergency ==

== ENCOUNTER 2024-10-29 14:50 | Outpatient (AMB) | payer BC, SELFPAY ==
--- OUTSIDE RECORDS SUMMARY | 2024-10-29 14:52 | XMS_ITS ---
Author Name [facility] Organization Unknown History of Medication Use Medication Directions Dispensed Refills Start Date End Date Status fluticasone propionate 50 mcg/actuation nasal spray,suspension fluticasone propionate 50 mcg/actuation nasal spray,suspension 3 completed None recorded. (No additional sig information) 3 completed Fiasp U-100 Insulin 100 unit/mL subcutaneous solution MAX DAILY DOSE 100 UNITS. E10.65. MAX DAILY DOSE 100 UNITS. E10.65. 3 completed escitalopram 20 mg tablet TAKE 1 TABLET BY MOUTH EVERY DAY TAKE 1 TABLET BY MOUTH EVERY DAY 3 completed drospirenone-ethinyl estradiol (MADDI) 3-0.02 MG per tablet TAKE 1 TABLET BY MOUTH AT THE SAME TIME EVERY DAY 3 active pantoprazole 40 mg tablet,delayed release TAKE 1 TABLET BY MOUTH EVERY DAY TAKE 1 TABLET BY MOUTH EVERY DAY 3 completed Baqsimi 3 mg/actuation nasal spray USE 1 SPRAY IN LEFT NOSTRIL IN THE EVENT OF SEVERE LOW BLOOD SUGAR. REPEAT IN 15 MINS IF NEEDED USE 1 SPRAY IN LEFT NOSTRIL IN THE EVENT OF SEVERE LOW BLOOD SUGAR. REPEAT IN 15 MINS IF NEEDED 3 completed ondansetron (ZOFRAN) 4 MG tablet TAKE 1 TABLET BY MOUTH EVERY DAY FOR 7 DAYS NEEDED FOR NAUSEA 3 active acyclovir (ZOVIRAX) 400 mg tablet Take 400 mg by mouth. 3 active bupropion HCl XL 150 mg 24 hr tablet, extended release TAKE 1 TABLET BY MOUTH EVERY DAY TAKE 1 TABLET BY MOUTH EVERY DAY 3 completed bimatoprost (LUMIGAN) 0.03 % ophthalmic drops INSTILL 1 DROP TO UPPER EYELID IN THE EVENING. DO NOT APPLY TO LOWER EYELID 3 active acyclovir 400 mg tablet Take 1 tablet twice a day by oral route. Take 1 tablet twice a day by oral route. 3 completed Baqsimi 3 mg/actuation nasal spray USE 1 SPRAY IN LEFT NOSTRIL IN THE EVENT OF SEVERE LOW BLOOD SUGAR. REPEAT IN 15 MINS IF NEEDED USE 1 SPRAY IN LEFT NOSTRIL IN THE EVENT OF SEVERE LOW BLOOD SUGAR. REPEAT IN 15 MINS IF NEEDED 3 completed Glucagon Emergency Kit 1 mg solution for injection Glucagon Emergency Kit 1 mg solution for injection 3 completed insulin aspart (insulin aspart) 100 UNIT/ML injection use up to 250 units subcutaneously daily 3 active ciprofloxacin (CIPRO) 500 MG tablet TAKE 1 TABLET BY MOUTH EVERY 12 HOURS FOR 7 DAYS 3 active proCHLORPERAZINE (COMPAZINE) 10 MG tablet Take 10 mg by mouth 3 (three) times a day. for 7 days 3 active fluconazole (diFLUcan) 150 MG tablet 3 active Continuous Blood Gluc Sensor (Dexcom G6 Sensor) Mis 3 active ondansetron (ZOFRAN-ODT) 4 MG disintegrating tablet 3 active Lexapro 5 mg tablet Take 1 tablet every day by oral route. Take 1 tablet every day by oral route. 3 completed bupropion HCl XL 300 mg 24 hr tablet, extended release TAKE 1 TABLET BY MOUTH EVERY DAY IN THE MORNING TAKE 1 TABLET BY MOUTH EVERY DAY IN THE MORNING 3 completed metoCLOPRAMIDE (REGLAN) 10 MG tablet TAKE 1 TABLET BY MOUTH FOUR TIMES DAILY FOR 10 DAYS 3 active Diflucan 150 mg tablet Take one tablet by mouth x 1 as needed for yeast infection Take one tablet by mouth x 1 as needed for yeast infection 3 completed Problems Problem Status Onset Date Problem Type Date of Resoluti on Source Depressive disorder active ProblemAct [facility] Venereal disease screening active 2019-07-09 ProblemAct [facility] Polycystic ovaries active ProblemAct [facility] Herpes simplex type 1 infection active 2019-07-14 ProblemAct [facility] Type 1 diabetes mellitus active ProblemAct [facility]
--- OUTSIDE RECORDS SUMMARY | 2024-10-29 14:52 | XMS_ITS | Continuity of Care Document ---
Author Organization [facility] Address [address] [place] [phone] Phone Care Team Providers Care Miter Saw Operator Name Role Phone Other, Other Unavailable Unavailable Medications Medication Instructions Dosage Effective Dates (start - stop) Status Comments Humalog 100 unit/mL SubQ Cartridge inject by subcutaneous route as per insulin sliding scale protocol - Active Lantus 100 unit/mL SubQ Cartridge inject by subcutaneous route as per insulin protocol - Active Procedures Procedure Date Comp Exam New Pt Refraction Advance Directives Directive Yes / No Effective Date File Name No Information Encounters Encounter Description Practice Location Reason(s) For Visit Diagnoses Date Provider Providers Copied on Encounter [facility], [address] [place] [address], [id number], tel: [phone] [facility] No Information 2 Other Other. [address] [place] [address], [id number] , . tel: [phone] [facility], [address] [place] [address], [id number], tel: [phone] [facility] [place] DiabetesHyperopia Blurred Vision 2 Adeel Alfonsothia. [address] [place] [address], [id number] , . tel: [phone] Family History Family Member Type Diagnosis Age At Onset No Information Payers Payer name Insurance type Covered democrat ID Authoriza tion(s) [facility] [id number] Social History Type Description Quantity Date Captured Comments Sex Female Smoking Status No Information Chief Complaint And Reason For Visit No Information Plan Of Treatment Date Type Action Status No Information History Of Present Illness Encounter Date Complaint History Of Prese nt Illness No Information Instructions Date Instruction Additional Infor mation No Information Assessments Type Assessment Date No Information
--- NOTE | 2024-10-29 14:57 | A.OFFVIS_ITS ---
Vital Signs 3 10/29/24 15:02 Height 5 ft 4 in Weight 183 lb BMI 31.4 BP 138/84 Blood Pressure Location Rt radial Position Sitting Pulse 87 Pulse Source Pulse Oximeter Pulse Oximetry (%) 99 Oxygen Delivery Method Room Air Intake Visit Reasons: Follow Up Intake Note: Pain today 7/10 Rehab Therapy Manager Required: No Accompanied by: Self / Same As Patient Allergies No Known Allergies Allergy (Verified 10/29/24 15:03) HPI Comments Details: Patient presents back to the office today for follow-up Since last visit she is evaluated by specialist, officially diagnosed with Slade-Danlos syndrome She will be starting physical therapy in the near future No longer taking gabapentin daily, currently taking only as needed when the pain is very bad Stopped cyclobenzaprine as it was making her too sleepy Pain today is rated a 7/10, constant, worse at night Prior: Stephenie presents back to the office today for follow-up. Continues with 6/10 back pain Has been taking 300 mg of gabapentin 3 times daily and 5 mg of cyclobenzaprine 3 times daily with some improvement of her pain Previous attempts and injections did not offer any relief She would like to discuss adjusting medications at this time Prior: Stephenie presents back to the office today for follow-up 1 week status post bilateral diagnostic L3-L4 DR L5 MBB with sedation. She reports no improvement in her pain, functional mobility since the procedure Pain today rated as 7/10, constant. She has appointment in 1 month for EMG, was supposed to have done today but she sprained her ankle so they postponed it. Had appointment with Rheumatology, she is being worked up for fibromyalgia and Slade-Danlos syndrome. HRT was started for endometriosis without improvement of her symptoms. They are trying a new injection which she just started. Prior: Patient presents the office today for follow-up, 10 days status post bilateral diagnostic L3-L4 DR L5 medial branch blocks with local anesthetic. She reports pain today is 9/10, no relief after the injections. If anything they made it worse . According to the records injections were somewhat difficult, patient did not tolerate well and at one point there was question of irritation to the nerve with pain down the leg. 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 Continues with gabapentin, tolerating well. Has been taking Flexeril with some improvement, stopped for a couple days and notes that the muscle spasms worsened. Had recently requested a dose increase because she felt that the effects were not as good as they were initially. Prior: Stephenie presents back to the office today for follow up lower back pain. Patient reports some relief with gabapentin, denies side effects. States no change in her pain with Flexeril. She is still awaiting Tens unit as it was originally sent to the wrong address and needed to be reshipped. She was recently diagnosed with Endometriosis, undergoing treatment for that with plan for HRT. Prior: Stephenie is a very pleasant 24-year-old female who presents the office today for evaluation management of her chronic lower back pain. Patient reports that she has been suffering with pain across her lower back, with occasional radiation up into her middle back, for approximately 3 years. She states she had a lipoma removed in 2019 and the pain started about 6 months after that. She denies radiation of the pain into the buttocks, groin or either leg. She is currently taking Tylenol and Advil for the pain. She tried Celebrex in the past but did not tolerate it. She has attempted physical therapy without relief of her pain, she continues with home exercise program. Approximately 6 months ago she tried manual manipulation with chiropractor and acupuncture, neither of which improved her pain. She does use heat and ice packs at home with some relief of her pain. She was evaluated several months ago by the surgeon who removed the lipoma, an MRI was performed, results as per below. Patient also complaining of burning, aching, stabbing, pins and needles to both feet. Patient is known type 1 diabetic but reports that her A1c daily blood glucose levels are well controlled. She reports that her father has a history of non diabetic neuropathy. She was recently fitted for orthotics from her primary care doctor and is being treated for plantar fascitis. Patient denies red flag symptoms including new loss of bowel, bladder or saddle anesthesia. Pain today is rated as a 5/10, constant in frequency, worse during the day and in the evening. In terms of muscle damage condition is described as aching, spasming, tiring, exhausting and throbbing. Pain is negatively impacting patient's general activity, mood, normal work, recreational activities, sleep, walking and bending over. 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 [facility] Medical History (Updated 10/20/23 @ 12:59 by Brisa Verdugo APRN, UNHAIRER) Herpes simplex type 1 infection Type 1 diabetes mellitus Moderate recurrent major depression Generalized anxiety disorder Polycystic ovary Surgical History (Updated 04/05/24 @ 11:50 by Mare Farfan RN) History of skin surgery H/O laparoscopy History of carpal tunnel release Social History (Updated 10/20/23 @ 11:17 by Christiane Farmer) Household Members: Spouse Housing: Apartment Alcohol intake: current Alcohol intake frequency: a few times a month Patient Tobacco Use Status: Never used Tobacco Substance Use Type: Marijuana and Caffiene service: No Current occupational status: unemployed Review of Systems Const All systems reviewed & are unremarkable except as noted in HPI and below Physical Exam Vital Signs: Last Vital Signs Pulse 87 10/29/24 15:02 BP 138/84 10/29/24 15:02 Pulse Ox 99 10/29/24 15:02 Oxygen Delivery Method Room Air 10/29/24 15:02 BMI result Body Mass Index 31.4 General: awake, alert, oriented. Answers questions appropriately. Fully engaged in examination. Skin: warm, dry, intact HEENT: Normocephalic. Hearing intact. Cardiac: External chest normal in appearance. Respiratory: No cough, audible wheezing or stridor. Abdomen: without gross distension. MS: No obvious swelling or deformities. Able to transition from sit to stand unassisted. Ambulates with bilaterally normal heel strike and toe off Neurological: Oriented to person, place, time and situation. Thought process intact. No gait abnormalities appreciated. Psychiatric: Appropriate mood and affect. Good judgment and insight. Results Reviewed Results Reviewed: 08/10/202303/2023 [facility] Consult note: Assessment & Plan Assessment & Plan (1) Myofascial muscle pain: Code(s): M79.18 - Myalgia, other site Category: Medical (2) Lumbar facet arthropathy: Code(s): M47.816 - Spondylosis without myelopathy or radiculopathy, lumbar region Category: Medical (3) Diabetic peripheral neuropathy: Code(s): E11.42 - Type 2 diabetes mellitus with diabetic polyneuropathy Category: Medical Plan Stephenie is a very pleasant 24-year-old female presented to the office today for follow up Continue with gabapentin as needed. Patient declines refill today Discontinue cyclobenzaprine. No prescription for methocarbamol 500 mg p.o. 3 times daily as needed. Patient advised on cautions for use Follow up with EDS specialists as planned All questions and concerns have been answered and patient agrees with the plan. Follow up in 3 months, sooner if needed Medications: New 2 methocarbamol Discontinue use of Cyclobenzaprine No driving while taking this medication. Do no take with alcohol or other DRUG COUNSELOR Depressants 500 mg PO TID PRN 90 tabs 1RF muscle spasm Discontinued 2 cyclobenzaprine Discontinued Reason: Patient no longer taking 5 mg (1/2 x 10 mg) PO TID PRN 90 tabs 3RF muscle spasm Coding Level of Care Code Est Pt Level 3 (92380) Complex EM visit Add On G2211 Diagnoses Myofascial muscle pain M79.18 Lumbar facet arthropathy M47.816 Diabetic peripheral neuropathy E11.42
[2024-10-29 15:02] VITALS: BP 138/84; PULSE 87; O2SAT 99; BMI 31.4
== END 2024-10-29 15:27 | disposition home or self-care (01) ==
PROVIDERS: PCP Family Medicine; Visit Provider Registered Nurse Emergency
DX: M79.18 Myalgia, other site (principal); M47.816 Spondylosis without myelopathy or radiculopathy, lumbar region; E11.42 Type 2 diabetes mellitus with diabetic polyneuropathy
CPT/HCPCS: 99213

== ENCOUNTER → 2024-10-29 14:50 | Outpatient (BNVA) | payer BC, SELFPAY | PROVIDERS: PCP Family Medicine; Visit Provider Registered Nurse Emergency ==

== ENCOUNTER 2025-02-26 12:52 | Outpatient (AMB) | payer BC, SELFPAY ==
--- NOTE | 2025-02-26 13:05 | A.OFFVIS_ITS ---
Vital Signs 3 02/26/25 13:06 Height 5 ft 4 in Weight 187 lb BMI 32.1 BP 129/85 Blood Pressure Location Lt radial Position Sitting Respiration 16 Pulse 87 Pulse Source Pulse Oximeter Pulse Oximetry (%) 98 Oxygen Delivery Method Room Air Intake Visit Reasons: 4 Month Follow Up Electrical Cad Technician Required: No Allergies No Known Allergies Allergy (Verified 02/26/25 13:07) Medication List - Last Reconciled 02/26/25 by Diann Ardon LPN acyclovir 400 mg PO BID blood sugar diagnostic (FreeStyle Test strips) As directed blood-glucose sensor (Dexcom G6 Sensor device) As directed blood-glucose transmitter (Dexcom G6 Transmitter device) As directed bupropion HCl XL 300 mg PO DAILY escitalopram oxalate (Lexapro) 20 mg PO DAILY fluconazole 150 mg PO DAILY PRN fluticasone propionate 50 mcg/actuation 2 sprays intranasal DAILY gabapentin 600 mg PO BID insulin aspart (niacinamide) 100 unit/mL (Fiasp U-100 Insulin) Omnipod pump insulin pump cart,auto,BT-cntr (Omnipod 5 G6 Intro Kit (Gen 5) subcutaneous cartridge with controller) As directed insulin pump cart,automated,BT (Omnipod 5 G6 Pods (Gen 5) subcutaneous cartridge) As directed methocarbamol 500 mg PO TID PRN ondansetron HCl 8 mg PO TID pantoprazole 40 mg PO DAILY HPI Comments Details: The patient is a 24-year-old female presenting with chronic myofascial pain and associated conditions. Her pain is concentrated around the cervical region, where she experiences associated cervicogenic headaches. Historically, pharmacological interventions, such as muscle relaxants like Flexeril, have been tried, although they often result in more side effects than symptomatic relief, mainly contributing to somnolence. The patient has undergone trigger point injections, which provided immediate yet transient relief. Discussions with specialists have included Botox injections targeting both migraine and TMJD relief, but the potential long-term adverse muscular consequences, such as muscle weakness, are concerning to her. As she is diabetic, she is advised against steroid use for pain management; alternatives for achieving longer-lasting relief are needed. Her efforts have included physical modalities such as physical therapy and osteopathic manipulative treatment (OMT), alongside trials of alternative methods like dry needling, indicating a proactive approach in managing her pain and associated symptoms. - Onset and Timing: Chronic; persistent over time - Quality and Character: Tension-type; associated cervicogenic and migrainous headaches - Primary Location: Cervical region - Radiation: Radiating into the neck and shoulder area - Exacerbating Factors: Ineffective long-term relief from trigger point and medicated interventions - Relieving Factors: Short-term relief from lidocaine trigger point injections; physical therapy assistance - Activities or Function Interference: Affects daily activities, particularly with headaches - Affect: Experiencing mood impairment due to chronic pain - Analgesia: Utilized Flexeril, finds it somewhat beneficial but with significant side effects - Adverse Effects: Flexeril causing somnolence, adverse long-term effects from potential Botox use - Activities of Daily Living: Difficulty with daily activities due to persistent pain - Aberrant Drug Related Behaviors: None reported or observed during conversation [facility] Medical History (Updated 02/26/25 @ 14:12 by Brisa Verdugo APRN, TOMBSTONE SETTER) Herpes simplex type 1 infection Type 1 diabetes mellitus Moderate recurrent major depression Generalized anxiety disorder Polycystic ovary Surgical History (Updated 04/05/24 @ 11:50 by Mare Farfan RN) History of skin surgery H/O laparoscopy History of carpal tunnel release Social History (Updated 10/20/23 @ 11:17 by Christiane Farmer) Household Members: Spouse Housing: Apartment Alcohol intake: current Alcohol intake frequency: a few times a month Patient Tobacco Use Status: Never used Tobacco Substance Use Type: Marijuana and Caffiene service: No Current occupational status: unemployed Review of Systems Const Details: - Musculoskeletal: Reports persistent cervical pain and muscular tension - Neurologic: Reports cervicogenic headaches and migraines - Psychiatric: Denies depressed mood but acknowledges mood impact due to chronic pain - Endocrine: Diabetic status mentioned in context of potential treatment risks Physical Exam Vital Signs: Last Vital Signs Pulse 87 02/26/25 13:06 Resp 16 02/26/25 13:06 BP 129/85 02/26/25 13:06 Pulse Ox 98 02/26/25 13:06 Oxygen Delivery Method Room Air 02/26/25 13:06 BMI result Body Mass Index 32.1 General: awake, alert, oriented. Answers questions appropriately. Fully engaged in examination. Skin: warm, dry, intact HEENT: Normocephalic. Hearing intact. Cardiac: External chest normal in appearance. Respiratory: No cough, audible wheezing or stridor. Abdomen: without gross distension. MS: No obvious swelling or deformities. Able to transition from sit to stand unassisted. Ambulates with bilaterally normal heel strike and toe off Tenderness to midline cervical vertebrae and cervical paraspinal muscles Tenderness to upper and middle trapezius bilaterally Neurological: Oriented to person, place, time and situation. Thought process intact. No gait abnormalities appreciated. Psychiatric: Appropriate mood and affect. Good judgment and insight. Results Reviewed Results Reviewed: 08/10/202303/2023 [facility] Consult note: Assessment & Plan Assessment & Plan (1) Myofascial muscle pain: Code(s): M79.18 - Myalgia, other site Category: Medical (2) Lumbar facet arthropathy: Code(s): M47.816 - Spondylosis without myelopathy or radiculopathy, lumbar region Category: Medical (3) Diabetic peripheral neuropathy: Code(s): E11.42 - Type 2 diabetes mellitus with diabetic polyneuropathy Category: Medical (4) Cervicalgia: Code(s): M54.2 - Cervicalgia Category: Medical (5) Cervicogenic headache: Code(s): G44.86 - Cervicogenic headache Category: Medical Plan Xrays will be performed to evaluate. We will plan for peripheral nerve stimulator implantation to address the patient?s resistant cervicogenic pain and headaches. The procedure, which aims to provide pain relief by altering brain recognition of pain signals, will be conducted in two stages, with each half of the cervical spine stimulated individually. The patient's response to earlier interventions and the potential for an extended relief period without regular invasive interventions support this choice. Patient progress will be assessed shortly after initiation, and additional strategies will be considered based on her condition thereafter, ensuring comprehensive management according to patient needs and response. During the visit, I discussed with the patient the various options available for managing her chronic cervical myofascial pain and cervicogenic headaches, focusing on the potential of peripheral nerve stimulation as a viable option. The rationale for this choice involved prior responses to existing therapies and the chronicity of her pain. The procedural details were communicated, highlighting the two-phase approach to limit side effects, such as dizziness, from concurrent bilateral procedures. We reviewed the anticipated outcomes, aiming for significant pain relief lasting up to a year. Potential alternatives and the potential inability of Botox to offer sustained relief were discussed, addressing the patient's concerns regarding long-term muscular effects from repeated injections. Consent remains pending insurance approval, allowing for a prompt start upon authorization. The patient expressed understanding and agreement with this approach. Will schedule for fluoroscopy guided bilateral C4, maybe C3, maybe C5 medial branch sprint peripheral nerve stimulator trial with local anesthetic. Left side to be performed 1st with right-sided follow in 2 weeks. Patient was informed and verbally consented to the use of an ambient scribe for clinic note documentation during this visit. Orders: Orders 2 XR cervical spine w flex/ext Today G44.86 - Cervicogenic headache, M54.2 - Cervicalgia Medications: Refilled 2 cyclobenzaprine 5 mg PO TID PRN 90 tabs 3RF muscle spasm Discontinued 2 methocarbamol Discontinue use of Cyclobenzaprine No driving while taking this medication. Do no take with alcohol or other INCIDENT COMMANDER Depressants Discontinued Reason: Doctor's Order 500 mg PO TID PRN 90 tabs 1RF muscle spasm Patient Instructions: - Complete Xrays as ordered - Await insurance approval for the peripheral nerve stimulator procedure. - Schedule the first procedure for the left side and the subsequent one two weeks later. - A follow-up appointment is planned one week after the first procedure to evaluate progress. - Continue physical therapy and maintain communication regarding pain levels and any adverse effects. - Resume use of Flexeril as previously discussed, monitoring for side effects and noting any changes in efficacy. - Avoid additional unscheduled interventions until further consultations post- procedure. Coding Level of Care Code Est Pt Level 3 (33657) Complex EM visit Add On G2211 Diagnoses Myofascial muscle pain M79.18 Lumbar facet arthropathy M47.816 Diabetic peripheral neuropathy E11.42 Cervicalgia M54.2 Cervicogenic headache G44.86
[2025-02-26 13:06] VITALS: BP 129/85; PULSE 87; RESP 16; O2SAT 98; BMI 32.1
--- OUTSIDE RECORDS SUMMARY | 2025-02-26 15:14 | XMS_ITS | Encounter Summary ---
Author Organization [facility] Address [address] [place] [address] Care Team Providers Care Video Production Coordinator Name Role Phone Unavailable Primary Care Provider Unavailabl e Encounter Details Date Type Department Care Team (Late Contact Info) Description 08/20/2021 Scanned Document [facility] [address] [place] [phone] Provider, John, [address] [place] [address] Social History Tobacco Use Types Packs/Day Years Used Date Smoking Tobacco: Never Assessed Comments Unknown Sex and Gender Information Value Date Recorded Sex Assigned at Female 12/04/2024 1:39 PM EST Legal Sex Female 4:12 PM EDT Gender Identity Female 12/04/2024 1:39 PM EST Sexual Orientation Heterosexual (straight) 12/04 1:39 PM EST COVID-19 Exposure Response Date Recorded In the last month, have you been in contact with someone who was confirmed or suspected to have Coronavirus / COVID-19? No / Unsure 08/23/2021 10:23 AM EDT documented as of this encounter Plan of Treatment Upcoming Encounters Date Type Department Care Team (Late st Contact Info) Description 05/12/2025 8:30 AM EDT Office Visit [address] [place] [phone] Ally Gallardo, PATIENT ACCESS REPRESENTATIVE [address] [place] [address] documented as of this encounter Visit Diagnoses Not on filedocumented in this encounter
--- OUTSIDE RECORDS SUMMARY | 2025-02-26 15:14 | XMS_ITS | Encounter Summary ---
Author Organization [facility] Address [address] [place] [address] Care Team Providers Care Hall Tender Name Role Phone Stiven Kay MD Primary Care Provider [phone] Encounter Details Date Type Department Care Team ([facility] st Contact Info) Description 09/18/2013 Scanned Document [facility] [place] [address], [address] [place], [place] [address] Brandin Coats, EDITOR FARM JOURNAL [email or web address] [facility] [address] [place] [address] Social History Tobacco Use Types Packs/Day Years Used Date Smoking Tobacco: Never Assessed Comments Unknown Sex and Gender Information Value Date Recorded Sex Assigned at Not on file Legal Sex Female 9:38 AM EDT Gender Identity Not on file Sexual Orientation Not on file documented as of this encounter Plan of Treatment Not on file documented as of this encounter Visit Diagnoses Not on filedocumented in this encounter Additional Health Concerns Infection Onset Date Last Indicated Resolved Time R/O COVID-19 07/22/2021 07/22/2021 07/22/2021 8:14 PM EDT R/O Norovirus 07/23/2021 07/23/2021 07/24/2021 11: 44 AM EDT documented as of this encounter Care Teams Hall Tender Relationship Specialty Start Date End Date Stiven Kay MD [address] [place] [phone] PCP - General Pediatrics 11/27/15 documented as of this encounter
--- OUTSIDE RECORDS SUMMARY | 2025-02-26 15:14 | XMS_ITS | Clinical Summary ---
Author Organization [facility] Address [address] [place] [address] Care Team Providers Care Liquor Maker Name Role Phone Unavailable Primary Care Provider Unavailabl e Allergies No known active allergies Medications acyclovir (ZOVIRAX) 400 mg tablet Take 400 mg by mouth. Active drospirenone-ethi nyl estradiol (MADDI) 3-0.02 MG per tablet TAKE 1 TABLET BY MOUTH AT THE SAME TIME EVERY DAY 08/04/20 21 Active insulin aspart (insulin aspart) 100 UNIT/ML injection use up to 250 units subcutaneously daily 08/05/20 21 Active Contour Next Test strip 05/30/20 21 Active Insulin Disposable Pump (OmniPod Dash 5 Pack Pods) Misc Use as directed. Change every day 12/21/19 21 Active famotidine (PEPCID) 40 MG tabletIndications :Gastroesophageal reflux disease, unspecified whether esophagitis present Take 1 tablet (40 mg total) by mouth 2 (two) times a day. 180 tablet 02/25/20 25 025 Active acetone, urine, test (Ketostix) strip Use to test ketones every 2 hours daily if BG is >300mg/dL 08/04/20 21 025 Disconti nued(Med List Clean-up /Old Med - No E-Cancel /No AVS) bimatoprost (LUMIGAN) 0.03 % ophthalmic drops INSTILL 1 DROP TO UPPER EYELID IN THE EVENING. DO NOT APPLY TO LOWER EYELID 06/03/20 21 025 Disconti nued(Med List Clean-up /Old Med - No E-Cancel /No AVS) ciprofloxacin (CIPRO) 500 MG tablet TAKE 1 TABLET BY MOUTH EVERY 12 HOURS FOR 7 DAYS 07/20/20 025 Disconti nued(Med List Clean-up /Old Med - No E-Cancel /No AVS) Continuous Blood Gluc Sensor (Dexcom G6 Sensor) Misc CHANGE EVERY 10 DAYS 08/02/20 025 Disconti nued(Med List Clean-up /Old Med - No E-Cancel /No AVS) Continuous Blood Gluc Sensor (Dexcom G6 Sensor) Misc 08/02/20 025 Disconti nued(Med List Clean-up /Old Med - No E-Cancel /No AVS) fluconazole (diFLUcan) 150 MG tablet 08/16/20 025 Disconti nued(Med List Clean-up /Old Med - No E-Cancel /No AVS) Insulin Disposable Pump (OmniPod Dash 5 Pack Pods) Misc USE DIRECTED AND CHANGE EVERY 2 DAYS 08/03/20 025 Disconti nued(Med List Clean-up /Old Med - No E-Cancel /No AVS) metoCLOPRAMIDE (REGLAN) 10 MG tablet TAKE 1 TABLET BY MOUTH FOUR TIMES DAILY FOR 10 DAYS 07/21/20 025 Disconti nued(Med List Clean-up /Old Med - No E-Cancel /No AVS) ondansetron (ZOFRAN-ODT) 4 MG disintegrating tablet 07/24/20 025 Disconti nued(Med List Clean-up /Old Med - No E-Cancel /No AVS) ondansetron (ZOFRAN) 4 MG tablet TAKE 1 TABLET BY MOUTH EVERY DAY FOR 7 DAYS NEEDED FOR NAUSEA 08/04/20 025 Disconti nued(Med List Clean-up /Old Med - No E-Cancel /No AVS) proCHLORPERAZINE (COMPAZINE) 10 MG tablet Take 10 mg by mouth 3 (three) times a day. for 7 days 07/20/20 025 Disconti nued(Med List Clean-up /Old Med - No E-Cancel /No AVS) Active Problems Patient Care Coordination No te Formatting of this note migh t be different from the original. PCP: PETERSON WARREN (OUT OF STATE) No known active problems Encounters Date Type Department Care Team Description 02/24/2025 8:00 AM EDT Consult [facility] [address] [place] [place] [phone] Ally Gallardo APRN Gastroesophageal reflux disease, unspecified whether esophagitis present (Primary Dx); Abdominal cramping; Bloating; Irregular bowel habits 12/04/2024 1:46 PM EST - 12/04/2024 11:59 PM EST Hospital Encounter [facility] [place] [facility] - Echocardiography Laboratory [address] [place] [address] Emilee [place], Discharge Disposition: Home or Self Care 12/04/2024 Travel from Last 3 Months Immunizations Immunization Administration Dates Next Due Covid-19 MRNA Primary Series Vaccine - Pfizer 12+ Da-Sucrose 04/02/2021,03/04/2021 Covid-19 mRNA Primary Series Vaccine - Moderna 0.5 mL Full Dose 04/02/2021,03/04/2021 DTaP, Unspecified 06/28/2001, 0,02/15/2000,1999 Hep A, Unspecified 05/03/2017,09/23/2016 Hep B, Unspecified 06/28/2001,12/12/2000, 000 Hib 05/02/2001, 0,02/15/2000,1999 IPV 08/21/2000,02/15/2000,1999 Influenza Whole 08/04/2021,11/24/2017,09/23/2016 Influenza, Quadrivalent (FLU ARIX, AFLURIA, FLULAVAL, FLUZONE) Preservative Free IM 08/04/2021,11/21/2018 MMR 05/02/2001 Meningococcal, Unspecified 09/23/2016 Pneumococcal Conjugate 7-Valent 05/02/2001,12/12,08/21/2000 Rabies Diploid Cell (IMOVAX) 04/27/2022, 04/20/2022,04/16/2022,2021 Rabies Immune Globulin 04/13/2022 Tdap 08/04/2021 Social History Tobacco Use Types Packs/Day Years Used Date Smoking Tobacco: Never Smokeless Tobacco: Never Comments Unknown Sex and Gender Information Value Date Recorded Sex Assigned at Female 12/04/2024 1:39 PM EST Legal Sex Female 4:12 PM EDT Gender Identity Female 12/04/2024 1:39 PM EST Sexual Orientation Heterosexual (straight) 12/04 1:39 PM EST Last Filed Vital Signs Vital Sign Reading Time Taken Comments Blood Pressure 122/78 02/24/2025 8:12 AM EDT Pulse 103 02/24/2025 8:12 AM EDT Temperature 36.4 ??C (97.6 ??F) 08/23/2021 10:35 AM E DT Respiratory Rate - - Oxygen Saturation 98% 08/23/2021 10:35 AM EDT Inhaled Oxygen Concentration - - Weight 81.2 kg (179 lb) 02/24/2025 8:12 AM EDT Height 162.6 cm (5' 4 ) 02/24/2025 8:12 AM EDT Body Mass Index 30.73 02/24/2025 8:12 AM EDT Plan of Treatment Upcoming Encounters Date Type Department Care Team (Late st Contact Info) Description 05/12/2025 8:30 AM EDT Office Visit [address] [place] [phone] Ally Gallardo, SARITA [address] [place] [phone] Health Maintenance Due Date Last Done Comments Hepatitis C Virus Screening 1999 HIV Screening 2012 HPV Vaccines (1 - 3-dose series) 2014 Influenza Vaccine 06/13/2024 08/04/2021, , 11/21/2018, Additional history exists COVID-19 Vaccine ( season) 2024 12/04/2021, 04/02/2021, 04/02/2021, Additional history exists Pap Smear (Ages 21-65) 01/25/2026 01/25/2023, 2021 DTaP/Tdap/Td Vaccines (6 - Td or Tdap) 08/04/2031 08/04/2021, 06/28/2001, 05/11/2000, Additional history exists Pneumococcal Vaccine: Pediatric (0-5 Years) and At-Risk Patients (6 to 49 Years) Aged Out 05/02/2001, 12/12/2000, 08/21/2000 No longer eligible based on patient's age to complete this topic Hepatitis B Vaccines Completed 06/28/2001, 12/12/2000, 05/11/2000 Hemoglobin A1C Discontinued 07/23/2021, 07/2019, 11/21/2018 Procedures Procedure Name Priority Date/Time Associated Diagnosis Comments ECHOCARDIOGRAM (TTE) COMPREHENSIVE (CONTRAST PRN) Routine 12/04/2024 2:32 PM EST Hypermobility syndrome THINPREP PAP TEST (ASSEMBLER EQUIPMENT) WITH HPV REFLEX Routine 01/25/2023 12:00 AM EDT from Last 3 Months or Most Recently Relevant to Health Maintenance Results * ECHOCARDIOGRAM COMPREHENSIVE (12/04/2024 2:32 PM EST) LV hanley vol 3D 125.0 mL [facility] LV Diastolic Volume 94 mL [facility] LV sys vol 3D 55.0 mL [facility] LV Systolic Volume 39 mL M [facility] IVS (F:0.6-0.9, M:0.6-1.0) 1.0 cm [facility] IVS Mean (F:0.6-0.9, M:0.6-1.0) 1.0 cm [facility] LVIDD (F:3.8-5.2, M:4.2-5.8) 3.9 cm [facility] LVIDD Mean (F:3.8-5.2, M:4.2-5.8) 3.9 cm [facility] LVIDS (F:2.2-3.5, M:2.5-4.0) 2.9 cm [facility] LVIDS (F:2.2-3.5, M:2.5-4.0) 2.9 cm [facility] LVOT diameter 1.9 cm [facility] LVOT diameter mean 1.9 cm M [facility] LVOT mn grad mean 4.0 mmHg [facility] LVOT VTI MEAN 22.8 cm [facility] LVOT mn grad 4.0 mmHg [facility] LVOT VTI 22.8 cm [facility] LVOT peak vitor 1.4 m/s [facility] LVOT peak vitor mean 1.4 m/s [facility] PW (F:0.6-0.9, M:0.6-1.0) 1.0 cm [facility] PW Mean (F:0.6-0.9, M:0.6-1.0) 1.0 cm [facility] MV E' Lateral Velocity 10.30 cm/s [facility] MV E' Lateral Velocity Mean 10.30 cm/s [facility] MV E' Septal Velocity 6.31 cm/s [facility] MV E' Septal Velocity Mean 6.31 cm/s [facility] LA sup-inf (apical 2-ch view) 5.35 cm [facility] LA volume 39.1 mL [facility] RA area 13.5 cm2 [facility] RA 2D Volume 31.3 mL [facility] Ao peak vitor 1.4 m/s [facility] Ao peak vitor mean 1.4 m/s [facility] Sinuses of Valsalva 2.8 cm [facility] Sinuses of Valsalva Mean 2.8 cm [facility] Ascending aorta 2.7 cm [facility] Ascending aorta mean 2.7 cm [facility] E wave decelartion time 244 ms [facility] E wave decelartion time mean 244 ms [facility] MV stenosis pressure 1/2 time mean 71 ms [facility] MV stenosis pressure 1/2 time 71 ms [facility] MV Peak A-Wave 75.4 cm/s [facility] MV Peak A-Wave Mean 75.4 cm/s [facility] MV Peak E-Wave 63.0 cm/s [facility] MV Peak E-Wave Mean 63.0 cm/s [facility] PV PEAK VELOCITY 1.1 m/s [facility] PV PEAK VELOCITY Mean 1.1 m/s [facility] RVOT peak VTI Mean 16.7 cm M [facility] RVOT peak VTI 16.7 cm [facility] RVID d 3.3 cm [facility] RVID d Mean 3.3 cm [facility] RV Free wall pk S' 11.5 cm/s M [facility] RV Free wall pk S' Mean 11.5 cm/s [facility] Tapse 1.8 cm [facility] Tapse Mean 1.8 cm [facility] TR Peak Vitor 2.0 m/s [facility] Wylie BP EF (55-75) 59 % [facility] EF - 3D Echo 56 % [facility] LVOT stroke volume 65 mL M [facility] LV mass 122.1 g [facility] LV RWT 0.51 [facility] E/A ratio 0.84 [facility] E/E' Lateral 6.1 [facility] E/E' Septal 10.0 [facility] E/E' Average 8.1 [facility] AV LVOT peak gradient 7.8 mmHg [facility] AV peak gradient 7.8 mmHg [facility] LVOT area 2.8 cm2 [facility] MV valve area p 1/2 method 3.10 cm2 [facility] PV peak gradient 4.8 mmHg [facility] E/E' ratio 6.12 [facility] TR Peak Gradient 16 mmHg [facility] SVI 34 mL/m2 [facility] Left Ventricular Cardiac Index 3.0 L/min/m2 [facility] Left Ventricular Cardiac Output 5.6 L/min [facility] LV Diastolic Volume Index (F:29-61, M:35-75) 50.3 mL/m2 [facility] LV Systolic Volume Index (F:8-24, M:11-31) 20.9 mL/m2 [facility] LV Mass Index (F:43-95, M:49-115) 65.3 g/m2 [facility] LA Volume Index (16-34) 20.9 mL/m2 [facility] GLS 17.1 % [facility] Heart Rate 86 bpm [facility] BP Systolic 119.0 mmHg [facility] BP Diastolic 69.0 mmHg [facility] [employer] [facility] Height 64.0 inches [facility] EDI Weight 180.0 lbs [facility] BSA 1.87 m2 [facility] Est. RA pres 3 mmHg [facility] [employer] [facility] LA Volume Index 16.7 mL/m2 [facility] Sinuses of Valsalva Index 1.5 cm/m2 [facility] Ascending aorta Index 1.4 cm/m2 [facility] IVC Inspiration Diameter 0.7 cm [facility] IVC Expiration Diameter 1.4 cm [facility] IVCPERCENTCOLLAPSE 0.50 % M [facility] RVSP 19 mmHg [facility] PASP 19.0 mmHg [facility] LVOT SI 34.55 mL/m2 [facility] Anatomical Region Laterality Modality Ultrasound Narrative 12/04/2024 2:52 PM EST ?Left ventricular systolic function is low normal. The quantitative EF is 56% by 3D imaging, and 59% by 2D Wylie biplane. Global longitudinal strain is normal at -17.1%. ?Right ventricular systolic function is normal. ?No significant valvular disease ?There is no previous study for comparison in our system. Technical Details Overall the study quality was adequate. The study was technically difficult. Left Ventricle The left ventricle is normal in size. Concentric remodeling of the left ventricle is present. Left ventricular systolic function is low normal. The quantitative EF is 56% by 3D imaging, and 59% by 2D Wylie biplane. Global longitudinal strain is normal at -17.1%. No wall motion abnormalities are present. Diastolic function is normal. Cardiac output is normal. The Doppler derived cardiac output is 5.6 L/min and cardiac index is 3.0 L/min/m2. Right Ventricle The right ventricle is normal in size. Right ventricular systolic function is normal. Left Atrium Left atrial size is normal. The pulmonary veins exhibit diastolic dominant flow. Right Atrium Right atrial size is normal. Based on IVC diameter and collapse, right atrial pressure is estimated to be normal (3 mmHg). Mitral Valve The mitral valve is structurally normal. There is no mitral regurgitation or stenosis. Tricuspid Valve The tricuspid valve is structurally normal. There is mild tricuspid regurgitation. The estimated right ventricular systolic pressure is normal at 19 mmHg. Aortic Valve The aortic valve is tricuspid. There is no aortic regurgitation or stenosis. Pulmonic Valve The pulmonic valve is structurally normal. There is trace pulmonic regurgitation. Ascending Aorta The aortic root and ascending aorta are normal in dimension. Pericardium There is no pericardial effusion. Prior Study There is no previous study for comparison in our system. Emilee Estradaa DO CV ECHO ORDERABLES Final Res ult * ThinPrep Pap Test (Field Scout) with HPV Reflex (01/25/2023 12:00 AM EDT) Clinical Information [facility] Comment:Routine exam LMP: [facility] Comment:NONE GIVEN Previous PAP: [facility] Comment:12/16/2021 Previous Biopsy [facility] Comment:NONE GIVEN Source: [facility] Comment:Cervix, Endocervix Statement of Adequacy: [facility] Comment: Satisfactory for evaluation. Endocervical/transformation zone component present. Interpretation/Resu lt: [facility] Comment:Negative for intraep ithelial lesion or malignancy. Comment: [facility] Comment: This Pap test has been evaluated with computer assisted technology. Block Feeder: [email or web address] Comment: DCR, CT(ASCP) CT screening location: [address] ??[id number] Comment [facility] Comment: EXPLANATORY NOTE: The Pap is a screening test for cervical cancer. It is not a diagnostic test and is subject to false negative and false positive results. It is most reliable when a satisfactory sample, regularly obtained, is submitted with relevant clinical findings and history, and when the Pap result is evaluated along with historic and current clinical information. 01/25/2023 01/26/2023 6:5 6 AM EDT Narrative [facility] - 01/27/2023 9:08 AM EDT [id number] NG Ivan Richards CAR ATTENDANT LAB AMB PATH/CYTO ORDERABLES Final Result [facility] [address] [facility] [address], [place] [address] from Last 3 Months or Most Recently Relevant to Health Maintenance Insurance [facility]
--- OUTSIDE RECORDS SUMMARY | 2025-02-26 15:14 | XMS_ITS | Encounter Summary ---
Author Organization [facility] Address [address] [place] [address] Care Team Providers Care [employer] Maintenance Worker Name Role Phone Stiven Kay MD Primary Care Provider [phone] Encounter Details Date Type Department Care Team ([facility] st Contact Info) Description 09/18/2013 Scanned Document [facility] [place] [address], [address] [place], [place] [phone] Brandin Coats, BRICKMASON APPRENTICE [address] [facility] [address] [place] [address] Social History Tobacco Use Types [...] documented as of this encounter Care Teams [employer] Maintenance Worker Relationship Specialty Start Date End Date Stiven Kay MD [address] [place] [phone] PCP - General Pediatrics 11/27/15 documented as of this encounter
--- OUTSIDE RECORDS SUMMARY | 2025-02-26 15:14 | XMS_ITS | Encounter Summary ---
Author Organization [facility] Address [address] [place] [phone] Care Team Providers Care Latex Caster Name Role Phone Stiven Kay MD Primary Care Provider [phone] Encounter Details Date Type Department Care Team (Late st Contact Info) Description 06/29/2016 Scanned Document [facility] [address] [place] [address] Gaby Velez MD PhD [address] [place] [phone] Social History Tobacco Use Types Packs/Day Years Used Date Smoking Tobacco: Never Alcohol Use Standard Drinks/Week Comments Not Asked 0 (1 standard drink = 0.6 oz pur e alcohol) Comments No Sex and Gender Information Value Date Recorded [...] documented as of this encounter Care Teams Latex Caster Relationship Specialty Start Date End Date Stiven Kay MD [address] [place] [phone] PCP - General Pediatrics 11/27/15 documented as of this encounter
--- OUTSIDE RECORDS SUMMARY | 2025-02-26 15:14 | XMS_ITS | Encounter Summary ---
Author Organization [facility] Address [address] [place] [phone] Care Team Providers Care Admissions Recruiter Name Role Phone Stiven Kay MD Primary Care Provider [phone] Encounter Details Date Type Department Care Team ([facility] st Contact Info) Description 10/02/2019 Scanned Document [facility] [place] [address], [address] [place] [address] Brandin Coats, SWITCHBOARD RECEPTIONIST [address] [facility] [address] [phone] Social History Tobacco Use Types Packs/Day Years Used Date Smoking Tobacco: Never Smokeless Tobacco: Current Alcohol Use Standard Drinks/Week Comments Not Asked [...] documented as of this encounter Care Teams Admissions Recruiter Relationship Specialty Start Date End Date Stiven Kay MD [address] [place] [phone] PCP - General Pediatrics 11/27/15 documented as of this encounter
--- OUTSIDE RECORDS SUMMARY | 2025-02-26 15:14 | XMS_ITS | Encounter Summary ---
Author Organization [facility] Address [address] [place] [phone] Care Team Providers Care Chief Librarian Extension Department Name Role Phone Stiven Kay MD Primary Care Provider [phone] Encounter Details Date Type Department Care Team ([facility] st Contact Info) Description 10/28/2016 Abstract [facility] [address] [place], [place] [address] Arlette Barclay APRN [address] [place] [address] [place] [phone] Social History Tobacco Use Types Packs/Day Years [...] on file documented as of this encounter Procedures Procedure Name Priority Date/Time Associated Diagnosis Comments POCT GLYCOSYLATED HEMOGLOBIN (HGBA1C), (HOME DEVICE) Routine 10/24/2016 1:51 PM EST documented in this encounter Results * POCT glycosylated hemoglobin (Hb A1C) (10/24/2016 1:51 PM EST) Hemoglobin A1C, POC 7.6 ? [facility] Blood specimen (specimen) 10/24/2016 1:51 PM EST us Historical Provider POINT OF CARE TEST ORDERABLE S Final Result [facility] [place], [facility] documented in this encounter Visit Diagnoses Not on filedocumented in this encounter Additional Health Concerns Infection Onset Date Last Indicated Resolved Time R/O COVID-19 07/22/2021 07/22/2021 07/22/2021 8:14 PM EDT R/O Norovirus 07/23/2021 07/23/2021 07/24/2021 11: 44 AM EDT documented as of this encounter Care Teams Chief Librarian Extension Department Relationship Specialty Start Date End Date Stiven Kay MD [address] [place] [phone] PCP - General Pediatrics 11/27/15 documented as of this encounter
--- OUTSIDE RECORDS SUMMARY | 2025-02-26 15:14 | XMS_ITS | Encounter Summary ---
Author Organization [facility] Address [address] [place] [address] Care Team Providers Care Agronomy Teacher Name Role Phone Unavailable Primary Care Provider Unavailabl e Reason for Visit * Reason Comments Constipation Diarrhea Encounter Details Date Type Department Care Team ([facility] st Contact Info) Description 02/24/2025 8:00 AM EDT Consult [facility] [address] [facility] [address] [place] [phone] Ally Gallardo, SARITA [address] [place] [address] Gastroesophageal reflux disease, unspecified whether esophagitis present (Primary Dx); Abdominal cramping; Bloating; Irregular bowel habits Social History Tobacco Use Types Packs/Day Years Used Date Smoking Tobacco: Never Smokeless Tobacco: Never Comments Unknown Sex and Gender Information Value Date Recorded Sex Assigned at Female 12/04/2024 1:39 PM EST Legal Sex Female 4:12 PM EDT Gender Identity Female 12/04/2024 1:39 PM EST Sexual Orientation Heterosexual (straight) 12/04 1:39 PM EST documented as of this encounter Last Filed Vital Signs Vital Sign Reading Time Taken Comments Blood Pressure 122/78 02/24/2025 8:12 AM EDT Pulse 103 02/24/2025 8:12 AM EDT Temperature - - Respiratory Rate - - Oxygen Saturation - - Inhaled Oxygen Concentration - - Weight 81.2 kg (179 lb) 02/24/2025 8:12 AM EDT Height 162.6 cm (5' 4 ) 02/24/2025 8:12 AM EDT Body Mass Index 30.73 02/24/2025 8:12 AM EDT documented in this encounter Progress Notes * Ally Gallardo, SHADOWGRAPH SCALE OPERATOR - 02/24/2025 8:00 AM EDT Images from the original note were not included. [address] [facility] [phone] Gastroenterology Consult Note Date of Consult: 02/24/2025 Patient's Primary Care Physician: No primary care provider on file. Reason for Consultation: IBS Assessment & Plan 1. Gastroesophageal reflux disease, unspecified whether esophagitis present atient with a history of GERD diagnosed via endoscopy in 2020, currently managed with pantoprazole 40mg daily. At the time of diagnosis, symptoms included diarrhea, vomiting, and reflux, later attributed in part to underlying endometriosis. Prior to treatment, patient experienced frequent daily reflux symptoms. Since initiating PPI therapy, there has been significant reduction in symptom frequency. Currently, she reports intermittent nausea and mild heartburn, particularly associated with earlymorning wake times, consistent with residual or breakthrough GERD symptoms. Overall, GERD appears well-controlled on current therapy with occasional symptom flares. 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 I think this is reasonable switch at this time, especially since her GERD symptoms have significantly improved. - PPI weaning information provided; plan will be to wean off PPI 40mg to Pepcid 40mg BID. - If not tolerated well, will plan to either switch back to PPI or discuss therapy adjustment. - Avoid/limit tobacco, alcohol, chocolate, peppermint, caffeine, greasy foods, spicy foods, and acidic foods such as citrus and tomato. Eat smaller, more frequent meals, and do not eat within 2 hoursof bedtime. If you have night-time symptoms, elevate the head of the bed 6 to 12 inches. 2. Abdominal cramping 3. Bloating 4. Irregular bowel habits The patient presents with a 5-year history of irritable bowel syndrome (IBS) characterized by alternating bowel patterns, including constipation and diarrhea. She reports bowel movements occurring inconsistently, with diarrhea 3- 4 times per week, and occasional solid stools. Symptoms are primarily marked by persistent lower abdominal cramping and bloating. No rectal bleeding is reported. Current management includes daily psyllium husk, which appears to offer partial support. Previous trials with Miralax were ineffective. Dietary interventions such as gluten-free and dairy-free diets have beenattempted in the past but with unclear benefit. Overall, the symptom pattern and chronicity are consistent with IBS-M (mixed type), though symptom control remains suboptimal. - Ordered xray to r/o constipation - Further recommendations based on results of xray, - Continue with fiber supplement daily - Encouraged hydration - with electrolytes F/U 3-4 months Plan noted above was discussed with the patient; patient is in agreement. All questions answered. Encouraged to call with any additional questions or concerns. Orders Placed This Encounter XR Abdomen 1 view ([id number]) Pancreatic Elastase-1, Stool famotidine (PEPCID) 40 MG tablet Disclaimer: Portions of this note were dictated by speech recognition. Minor errors in engineering document control clerk may be present. SLIME Melendez is a 24 y.o. female presents today for a new patient consult. PMH: Slade-Danlos syndrome Chief Complaint: constipation/diarrhea History of present illness: For the past 5 years - IBS Bowel movements - Switches between constipation and diarrhea Does not have a BM daily; Diarrhea 3-4x per week; when she actually has a BM Occasionally has solid stool in between Mostly has bloating and lower abdominal cramping; constantly; No rectal bleeding. Taking psyliium husk daily Tried Miralax in the past; did not help Has tried eliminated GF and DF in the past; does not recall it helped; 2020 dx with GERD via endoscopy - has been on pantoprazole 40mg since then. Was having diarrhea and vomiting back then. Found out she had endometriosis; which caused the diarrhea and vomiting. At that time also having reflux; morning sickness. Before 2020 was having frequent daily reflux symptoms; Since starting PPI; has reduced frequently; Has morning sickness when waking early; Nausea; Mild heartburn/reflux associated; Recently dx Slade-Danlos syndrome Going to be seeing cardiology for possible POTS dx Going to be seeing tenter/immunology for MCAS dx Imaging/Lab/ Procedural Investigations: No recent labs 08/2021 GES normal Prior GI Workup: Colonoscopy: Endoscopy: 08/2021 ([facility]) LA grade a reflux esophagitis. Gastritis. Bx mild reactive gastropathy and patchyminimal chronic gastritis. Family History: denies family history of colon cancer, colon polyps, IBD or other GI related cancers. Social History: Tobacco use: denies ETOH use: denies Illicit drug use/marijuana use: denies Anti-platelets/Anti-coagulants: Denies Review of Systems Constitutional: Negative. Negative for decreased appetite and weight loss. Gastrointestinal: Positive for constipation and diarrhea. Negative for abdominal pain, bloating, blood in stool, change in bowel habit, flatus, heartburn, black stool, nausea and vomiting. All other systems reviewed and are negative. Objective Vitals: 02/24/25 0812 BP: 122/78 Pulse: (!) 103 Weight: 81.2 kg (179 lb) Height: 1.626 m (5' 4 ) Body mass index is 30.73 kg/m??. Wt Readings from Last 3 Encounters: 02/24/25 81.2 kg (179 lb) 08/23/21 69.9 kg (154 lb) Physical Exam Vitals reviewed. Constitutional: Appearance: Normal appearance. HENT: Head: Normocephalic. Eyes: Extraocular Movements: Extraocular movements intact. Conjunctiva/sclera: Conjunctivae normal. Cardiovascular: Rate and Rhythm: Normal rate. Pulmonary: Effort: Pulmonary effort is normal. Breath sounds: No wheezing. Abdominal: General: Abdomen is flat. Bowel sounds are normal. Palpations: Abdomen is soft. Tenderness: There is no abdominal tenderness. Musculoskeletal: General: Normal range of motion. Cervical back: Normal range of motion. Skin: General: Skin is warm and dry. Neurological: General: No focal deficit present. Mental Status: She is alert and oriented to person, place, and time. Mental status is at baseline. Psychiatric: Mood and Affect: Mood normal. Behavior: Behavior normal. Judgment: Judgment normal. Allergies No Known Allergies Medications acyclovir (ZOVIRAX) 400 mg tablet Take 400 mg by mouth. Contour Next Test strip drospirenone-ethinyl estradiol (MADDI) 3-0.02 MG per tablet TAKE 1 TABLET BY MOUTH AT THE SAME TIME EVERY DAY insulin aspart (insulin aspart) 100 UNIT/ML injection use up to 250 units subcutaneously daily Insulin Disposable Pump (OmniPod Dash 5 Pack Pods) Misc Use as directed. Change every day Recent Labs and Tests No results found for: WBC , HGB , HCT , MCV , PLT No results found for: GLUC , CALCIUM , NA , K , CO2 , CL , BUN , CREAT No results found for: ALT , AST , GGT , ALKPHOS , BILITOT , ALBUMIN No results found for: INR , PROTIME No results found for: LIPASE No results found for: AMYLASE No results found for: CRP , ESR No components found for: TTG-IGA Imaging No results found. Histories History reviewed. No pertinent past medical history. History reviewed. No pertinent surgical history. Social History Tobacco Use Smoking status: Never Smokeless tobacco: Never History reviewed. No pertinent family history. GI Procedural History Billing I spent a total of 30 minutes on the day of the visit. During this visit, the time spent included the following: Examining the patient Chart review in preparation for the visit Documenting in the patient record Reviewing Labs & Radiology Medication Reconciliation All relevant data including labs, xrays, diagnostic studies, physician notes, and referral notes were reviewed on date of visit. Sign: Ally Gallardo APRN 02/24/2025 8:49 AM documented in this encounter Plan of Treatment Upcoming Encounters Date Type Department Care Team (Late st Contact Info) Description 05/12/2025 8:30 AM EDT Office Visit [facility] [address] [facility] [address] [place] [phone] Ally Gallardo APRN [address] [place] [address] Scheduled Orders Name Type Priority Associated Diagnoses Orde r Schedule Pancreatic Elastase-1, Stool Lab Routine Abdominal cramping Bloating Irregular bowel habits Ordered: 02/24/2025 XR Abdomen 1 view ([id number]) Imaging Routine Abdominal cramping Bloating Irregular bowel habits Expected: 02/24/2025, Expires: 02/24/2026 documented as of this encounter Visit Diagnoses Diagnosis Gastroesophageal reflux disease, unspecified whether esophagitis present- Primary Abdominal cramping Abdominal pain, unspecified site Bloating Flatulence, eructation, and gas pain Irregular bowel habits documented in this encounter
--- OUTSIDE RECORDS SUMMARY | 2025-02-26 15:14 | XMS_ITS | Encounter Summary ---
Author Organization [facility] Address [address] [place] [address] Care Team Providers Care Coke Burner Name Role Phone Stiven Kay MD Primary Care Provider [phone] Encounter Details Date Type Department Care Team ([facility] st Contact Info) Description 10/01/2013 Scanned Document [facility] [place] [address] [place], [place] [address] Brandin Coats, SEWER AND CUTTER FINGER BUFF MATERIAL [address] [facility] [address] [place] [phone] Social History Tobacco Use Types Packs/Day Years [...] documented as of this encounter Care Teams Coke Burner Relationship Specialty Start Date End Date Stiven Kay MD [address] [place] [phone] PCP - General Pediatrics 11/27/15 documented as of this encounter
--- OUTSIDE RECORDS SUMMARY | 2025-02-26 15:14 | XMS_ITS | Clinical Summary ---
Author Organization [facility] Address [address] [place] [address] Care Team Providers Care Communications Scientist Name Role Phone Stiven Kay MD Primary Care Provider + [phone] Source Comments Please note that some or all of the patient's information could have additional privacy protections. State laws allow health care providers to render certain types of treatment to minors without parental consent. Please do not assume that this information can be shared solely by obtaining just the consent of the patient's parent/guardian. Please determine if all or part of the patient's care was rendered without parent/guardian involvement. And, if so, obtain the minor's consent prior to disclosure.[facility] Social History Tobacco Use Types Packs/Day Years Used Date Smoking Tobacco: Never Assessed Comments Unknown Sex and Gender Information Value Date Recorded Sex Assigned at Not on file Legal Sex Female 2:28 AM EST Gender Identity Not on file Sexual Orientation Not on file Plan of Treatment Not on file Insurance GENERIC Care Teams Communications Scientist Relationship Specialty Start Date End Date Stiven Kay MD [address] [place] [phone] PCP - General General Pediatrics 08/25/21
--- OUTSIDE RECORDS SUMMARY | 2025-02-26 15:14 | XMS_ITS | Clinical Summary ---
Author Organization [address] Address [address] [place] [phone] Care Team Providers Care Ammunition Components Inspector Name Role Phone Stiven Kay MD Primary Care Provider + [phone] Allergies No known active allergies Medications drospirenone-ethin yl estradiol (LORYNA, 28,) 3-0.02 mg Tab TAKE 1 TABLET BY MOUTH DAILY BEFORE DINNER. 28 tablet 0 11/03/20 15 Active acyclovir (ZOVIRAX) 400 MG tablet Take 400 mg by mouth 2 (two) times daily.. Active insulin glargine (LANTUS SOLOSTAR U-100 INSULIN) 100 unit/mL (3 mL) subcutaneous injection penIndications:Typ e 1 diabetes mellitus without complication Use as directed for up to 100 units of insulin if your pump breaks. Take once every 24 hours. 15 mL 1 04/18/20 18 Active glucagon, Human Recombinant, (GLUCAGON) 1 mg injectionIndicatio ns:Type 1 diabetes mellitus without complication Mix and inject 1mg IM/SQ for severe hypoglycemia 2 kit 4 04/18/20 18 Active lancets (ONETOUCH DELICA LANCETS) 33 gauge MiscIndications:Un controlled type 1 diabetes mellitus without complication Inject 1 each under the skin as needed.. 200 each 04/18/20 18 Active pen needle, diabetic (BD ULTRA-FINE MARIA DEL CARMEN PEN NEEDLES) 32 gauge x 5/32 NdleIndications:Un controlled type 1 diabetes mellitus without complication Use as directed. 200 each 04/18/20 18 Active blood-glucose meter,continuous (DEXCOM G6 IMMIGRATION JUDGE) MiscIndications:Ty pe 1 diabetes mellitus without complication Use as directed. 1 each 08/13/20 19 Active glucagon (BAQSIMI) 3 mg/actuation nasal sprayIndications:T ype 1 diabetes mellitus without complication Use 1 spray (3 mg total) in one nostril as needed for severe hypoglycemia. 4 each 4 07/01/20 20 Active ondansetron (ZOFRAN-ODT) 4 mg disintegrating tabletIndications: Intractable vomiting with nausea, unspecified vomiting type Place 1 tablet (4 mg total) onto the tongue every 8 (eight) hours as needed. 10 tablet 07/24/20 Active acetone, urine, test (ACETONE, URINE, TEST) stripsIndications: Type 1 diabetes mellitus,Type 1 diabetes mellitus without complication Use to test ketones every 2 hours daily if BG is >300mg/dL 300 each 3 08/04/20 21 Active insulin aspart, niacinamide, (FIASP U-100 INSULIN) 100 unit/mL vialIndications:Ty pe 1 diabetes mellitus without complication use up to 250 units subcutaneously daily 180 mL 3 08/05/20 21 Active blood sugar diagnostic (CONTOUR NEXT) test stripsIndications: Type 1 diabetes mellitus without complication USE TO TEST UP TO 10 TIMES DAILY 900 each 3 08/23/20 Active insulin lispro-aabc (LYUMJEV U-100 INSULIN) 100 unit/mL vial Use up to 100 units daily 150 mL 09/03/20 21 Active blood-glucose sensor (DEXCOM G6 SENSOR) deviceIndications: Type 1 diabetes mellitus without complication Change every 10 days as directed 9 each 1 11/15/19 22 Active insulin pump cart,cont inf,BT (OMNIPOD DASH PODS, GEN 4,) CrtgIndications:Ty pe 1 diabetes mellitus without complication Inject 50 Cartridges under the skin every other day. 50 each 05/04/20 Active blood-glucose transmitter (DEXCOM G6 TRANSMITTER) deviceIndications: Type 1 diabetes mellitus without complication Change every 90 days as directed 1 each 1 07/06/20 Active Active Problems Problem Noted Date Diagnosed Date Intractable vomiting with nausea 07/22/2021 Overview (02/11/2022): February 2022 IMO replacements Emesis, persistent 07/22/2021 Carpal tunnel syndrome, bilateral 05/29/2020 Herpes 06/27/2019 Depression 12/26/2013 Type 1 diabetes 10/04/2013 PCOS (polycystic ovarian syndrome) 10/04/2013 Immunizations Name Administration Dates Next Due Influenza, injectable, quadrivalent, preservativ e free 11/21/2018 Social History Tobacco Use Types Packs/Day Years Used Date Smoking Tobacco: Never Smokeless Tobacco: Current Alcohol Use Standard Drinks/Week Comments Not Asked 0 (1 standard drink = 0.6 oz pur e alcohol) PHQ-2 Answer Date Recorded PHQ-2 Total Score 0 08/04/2021 Comments No Sex and Gender Information Value Date Recorded Sex Assigned at Not on file Legal Sex Female 9:38 AM EDT Gender Identity Not on file Sexual Orientation Not on file Last Filed Vital Signs Vital Sign Reading Time Taken Comments Blood Pressure 111/81 08/04/2021 11:37 AM EDT Pulse 96 08/04/2021 11:37 AM EDT Temperature 36.7 ??C (98.1 ??F) 08/04/2021 11:37 AM E DT Respiratory Rate 20 07/24/2021 12:05 PM EDT Oxygen Saturation 100% 07/24/2021 12:05 PM EDT Inhaled Oxygen Concentration - - Weight 72 kg (158 lb 11.7 oz) 08/04/2021 11:37 A M EDT Height 164.1 cm (5' 4.61 ) 08/04/2021 11:37 AM E DT Body Mass Index 26.74 08/04/2021 11:37 AM EDT Plan of Treatment Health Maintenance Due Date Last Done Comments MMR Vaccines (1 of 1 - Standard series) 2000 DTaP/TDaP Vaccines (1 - Tdap) 2006 HIV screening 2012 Varicella Vaccines (1 of 2 - 13+ 2-dose series) 2012 HPV vaccine series (1 - 3-do se series) 2014 Hepatitis C screening 2017 Hepatitis B vaccine series ( 1 of 3 - 19+ 3-dose series) 2018 Tetanus adult (Td q 10,TDAP once) 2019 Covid-19 vaccine series ( - season) 2024 04/02/2021, 03/04/2021 Influenza vaccine 07/14/2025 11/21/2018 Cervical cancer screening 01/25/20262022, 12/16/2021 RSV Immunization (1 - 1-dose 75+ series) 2074 HIB Vaccines Aged Out No longer eligi ble based on patient's age to complete this topic Hepatitis A Vaccines Aged Out No long er eligible based on patient's age to complete this topic IPV Vaccines Aged Out No longer eligi ble based on patient's age to complete this topic Meningococcal Vaccine Aged Out No patsy chevy eligible based on patient's age to complete this topic Pneumococcal Vaccine (2 - 49 years) Aged Out No longer eligible b ased on patient's age to complete this topic Rotavirus Vaccines Aged Out No longer eligible based on patient's age to complete this topic Insurance [employer] ADITI [place]LEY [id number] ADITI [place] [id number] * Guarantor: STEPHENIE MELENDEZ Account Type Relation to Patient Date of Phone Billing Address Personal/Family Advance Directives * Full ACLS (Latest Code Status on File) Date Activated Date Inactivated Comments 07/22/2021 11:20 PM 07/24/2021 9:13 PM Care Teams Ammunition Components Inspector Relationship Specialty Start Date End Date Stiven Kay MD [address] [place] [phone] PCP - General Pediatrics 11/27/15
--- OUTSIDE RECORDS SUMMARY | 2025-02-26 15:14 | XMS_ITS | Encounter Summary ---
Author Organization [facility] Address [address] [place] [phone] Care Team Providers Care Hospital Chief Financial Officer Name Role Phone Stiven Kay MD Primary Care Provider [phone] Reason for Visit * Reason Comments Medication Refill Encounter Details Date Type Department Care Team (Late st Contact Info) Description 10/21/[address] [address] Brandin Coats, TIRE TRUCKER [address] [place] [address] [place] [phone] Medication Refill Social History Tobacco Use Types Packs/Day Years [...] as of this encounter Visit Diagnoses Diagnosis Type 1 diabetes mellitus without complication Type I (juvenile type) diabetes mellitus without mention of complication, not stated as uncontrolled documented in this encounter Additional Health Concerns Assessment Noted Time PHQ-9 Depression Total Score: 0 08/04/20 21 11:40 AM EDT documented as of this encounter Care Teams Hospital Chief Financial Officer Relationship Specialty Start Date End Date Stiven Kay MD [address] [place] [phone] PCP - General Pediatrics 11/27/15 documented as of this encounter
--- OUTSIDE RECORDS SUMMARY | 2025-02-26 15:14 | XMS_ITS | Encounter Summary ---
Author Organization [facility] Address [address] [place] [phone] Care Team Providers Care Operational Risk Consultant Name Role Phone Stiven Kay MD Primary Care Provider [phone] Encounter Details Date Type Department Care Team (Late st Contact Info) Description 11/20/2013 Scanned Document [facility] [place] [address] [place], [place] [phone] Brandin Coats, PRODUCE DEPARTMENT SUPERVISOR [address] [facility] [address] [place] [phone] Social History Tobacco Use Types Packs/Day Years [...] documented as of this encounter Care Teams Operational Risk Consultant Relationship Specialty Start Date End Date Stiven Kay MD [address] [place] [phone] PCP - General Pediatrics 11/27/15 documented as of this encounter
--- OUTSIDE RECORDS SUMMARY | 2025-02-26 15:14 | XMS_ITS | Encounter Summary ---
Author Organization [facility] Address [address] [place] [address] Care Team Providers Care Process Safety Manager Name Role Phone Unavailable Primary Care Provider Unavailabl e Encounter Details Date Type Department Care Team (Late Contact Info) Description 08/24/[address] [facility] [address] [place] [phone] Provider, John, [address] [place] [address] Social History Tobacco Use Types Packs/Day Years [...] Description 05/12/2025 8:30 AM EDT Office Visit [facility] [address] [facility] [address] [place] [phone] Ally Gallardo, SPRING TIER [address] [place] [address] documented as of this encounter Visit Diagnoses Not on filedocumented in this encounter
== END 2025-02-26 13:31 | disposition home or self-care (01) ==
LOC: HO.PMC 12:52
PROVIDERS: PCP Family Medicine; Visit Provider Registered Nurse Emergency
DX: M79.18 Myalgia, other site (principal); M47.816 Spondylosis without myelopathy or radiculopathy, lumbar region; E11.42 Type 2 diabetes mellitus with diabetic polyneuropathy; M54.2 Cervicalgia; G44.86 Cervicogenic headache
CPT/HCPCS: 99213

== ENCOUNTER 2025-04-16 13:37 | Outpatient (AMB) | payer OTHER, BC, SELFPAY ==
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
[2025-04-16 13:47] VITALS: BP 131/80; PULSE 98; RESP 16; O2SAT 98; BMI 30.2
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
== END 2025-04-16 14:43 | disposition home or self-care (01) ==
LOC: HO.PMC 13:38
PROVIDERS: PCP Family Medicine; Visit Provider Registered Nurse Emergency
DX: M79.18 Myalgia, other site (principal); M47.816 Spondylosis without myelopathy or radiculopathy, lumbar region; E11.42 Type 2 diabetes mellitus with diabetic polyneuropathy; M54.2 Cervicalgia; G44.86 Cervicogenic headache
CPT/HCPCS: 99213; G2211

== ENCOUNTER → 2025-04-16 13:37 | Outpatient (BNVA) | payer OTHER, BC, SELFPAY | PROVIDERS: PCP Family Medicine; Visit Provider Registered Nurse Emergency ==

== ENCOUNTER 2025-09-05 14:56 | Outpatient (AMB) | payer BC, SELFPAY ==
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
[2025-09-05 14:59] VITALS: BP 113/77; PULSE 101; RESP 16; O2SAT 96; BMI 28.7
--- OUTSIDE RECORDS SUMMARY | 2025-09-05 16:37 | XMS_ITS | Clinical Summary ---
Author Organization [facility] Address [address] [place] [address] Care Team Providers Care Senior Service Technician Name Role Phone Ana Laura Arzate PA-C Primary Car e Provider Allergies No known active allergies Medications acyclovir (ZOVIRAX) 400 mg tablet Take 1 tablet (400 mg total) by mouth 2 (two) times a day. Active drospirenone-ethin yl estradiol (MADDI) 3-0.02 MG per tablet TAKE 1 TABLET BY MOUTH AT THE SAME TIME EVERY DAY 08/04/20 21 Active insulin aspart (insulin aspart) 100 UNIT/ML injection use up to 250 units subcutaneously daily 08/05/20 21 Active Contour Next Test strip 05/30/20 21 Active Insulin Disposable Pump (OmniPod Dash 5 Pack Pods) Misc Use as directed. Change every day 12/21/19 21 Active methocarbamol (ROBAXIN) 750 MG tablet Take 2 tablets (1,500 mg total) by mouth 3 (three) times a day. 18 tablet 03/18/20 25 Active ibuprofen (MOTRIN) 600 MG tablet Take 1 tablet (600 mg total) by mouth every 6 (six) hours. 20 tablet 03/18/20 25 Active Additional Information Patient taking differently:600 mg OralEvery 8 hours PRN, Reason: Other, Reported on 08/26/2025 famotidine (PEPCID) 40 MG tabletIndications: Gastroesophageal reflux disease, unspecified whether esophagitis present TAKE 1 TABLET BY MOUTH TWICE A DAY 180 tablet 07/28/20 25 Active Additional Information Patient taking differently:40 mg OralNightly, Reason: Other, Reported on 08/26/2025 ondansetron (ZOFRAN-ODT) 4 MG disintegrating tablet Take 1 tablet (4 mg total) by mouth 3 times daily (every 8 hours) as needed. 08/12/20 Active semaglutide (Ozempic, 1 MG/DOSE,) (1 mg/dose pen) prefilled pen injection Inject 0.5 mg under the skin once a week. 07/17/20 25 Active escitalopram (LEXAPRO) 20 MG tablet Take 1 tablet (20 mg total) by mouth every morning. Active buPROPion (WELLBUTRIN XL) 300 MG 24 hr tablet Take 1 tablet (300 mg total) by mouth every morning. Swallow whole; do not crush, chew, or divide. Active PANTOprazole (PROTONIX) 40 MG EC tablet Take 1 tablet (40 mg total) by mouth every morning before breakfast. Active cromolyn (GASTROCROM) 100 MG/5ML solution Take 5 mL (100 mg total) by mouth 4 (four) times a day before meals and nightly. Active fexofenadine (DREW) 180 MG tablet Take 1 tablet (180 mg total) by mouth 2 times a day. Administer with water only; do not administer with fruit juices. Active fluticasone (FloNASE) 50 mcg/spray nasal spray 1 spray into each nostril every morning. Active cholecalciferol (CHOLECALCIFEROL) 25 MCG (1000 UT) tablet Take 1 tablet (1,000 Units total) by mouth nightly. Active Quercetin 500 MG Cap Take by mouth nightly. Active polyethylene glycol 17 g packet Take 1 packet (17 g total) by mouth nightly. Active Active Problems Patient Care Coordination No te Formatting of this note migh t be different from the original. PCP: ANA LAURA WARREN (OUT OF STATE) Problem Noted Date Diagnosed Date Type 1 diabetes mellitus without complications 1 Assessment & Plan (08/27/2025 11:16 AM EDT): Past medical history of type 1 diabetes mellitus noted. She follows up with endocrinology at [facility] - TYLER Castillo. Will check hemoglobin A1c today. Presently on a medication regimen of insulin pump and Ozempic Patient informed of the need of going on a clear liquid diet 24 hours prior to the surgery with n.p.o. after midnight. Insulin pump recommendations to come from the pressurization mechanic office GERD (gastroesophageal reflux disease) Assessment & Plan (08/27/2025 11:16 AM EDT): Well-controlled and managed with medication pantoprazole. Continue current medication regimen as prescribed. Continue plan as previously directed by your provider. Depression with anxiety 08/27/2025 Assessment & Plan (08/27/2025 11:17 AM EDT): Maintained on Lexapro/Wellbutrin daily. Mood and affect appropriate in office today. Continue current medication regimen as prescribed. Patient to follow up with provider as previously directed. Peggy thyroiditis 08/27/2025 Assessment & Plan (08/27/2025 11:18 AM EDT): Clinically appears to be euthyroid. Further outpatient follow-up advised. 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 Woodard: [facility] Encounters Date Type Department Care Team Description 09/05/2025 Scanned Document [facility] [address] [place] [address] Jaime Hawthorne MD 09/05/2025 Scanned Document [facility] [address] [place] [phone] Jaime Hawthorne MD 08/28/2025 Scanned Document [facility] in [address] [place] [address] Ana Laura Birch PA-C 08/27/2025 11:00 AM EDT Pre-Admission Testing [facility] [address] [facility] [address] [place] [address] Martin Worthy MD Preop cardiovascular exam (Primary Dx); Type 1 diabetes mellitus without complications (HCC); Gastroesophageal reflux disease without esophagitis; Depression with anxiety; Peggy thyroiditis; Marijuana use; YAS (obstructive sleep apnea) 08/26/2025 Travel 08/14/2025 CC Surg Order [facility] [address] [place] [address] Jaime Hawthorne MD 08/05/2025 12:45 PM EDT Office Visit [facility] [address] [facility] [place] [address] Jaime Hawthorne MD Deviated nasal septum (Primary Dx); Hypertrophy of nasal turbinates; Obstructive sleep apnea (adult) (pediatric); Non-seasonal allergic rhinitis due to pollen 07/28/2025 Refill [facility] [address] [facility] [address] [place] [phone] Ally Gallardo APRN Gastroesophageal reflux disease, unspecified whether esophagitis present from Last 3 Months Immunizations Immunization Administration [...] 04/20/2022,04/16/2022,2021 Rabies Immune Globulin 04/13/2022 Tdap 08/04/2021 Family History Medical History Relation Name Comments Autoimmune disease Brother arash type 1 di abetes Cancer Father mendez thyroid cancer Cancer Mother diann breast cancer Autoimmune disease Sister marlyn POTS Relation Name Status Comments Brother arash Alive Father mendez Alive Mother diann Alive Sister marlyn Alive Social History Tobacco Use Types Packs/Day Years Used Date Smoking Tobacco: Never Smokeless Tobacco: Never Alcohol Use Standard Drinks/Week Comments Yes 0 (1 standard drink = 0.6 oz pur e alcohol) 2x/month AUDIT-C Answer Date Recorded Q1: How often do you have a drink containing alc ohol? 2-4 times a month 08/26/2025 Q2: How many drinks containi ng alcohol do you have on a typical day when you are drinking? 1 or 2 08/26/2025 Q3: How often do you have si x or more drinks on one occasion? Never 08/26/2025 Comments Unknown Sex and Gender Information Value Date Recorded Sex Assigned at Female 12/04/2024 1:39 PM EST Legal Sex Female 4:12 PM EDT Gender Identity Female 12/04/2024 1:39 PM EST Sexual Orientation Heterosexual (straight) 12/04 1:39 PM EST Last Filed Vital Signs Vital Sign Reading Time Taken Comments Blood Pressure 114/78 08/27/2025 11:00 AM EDT Pulse 94 08/27/2025 11:00 AM EDT Temperature 36.2 C (97.1 F) 08/27/2025 11:00 AM EDT Respiratory Rate 18 08/27/2025 11:00 AM EDT Oxygen Saturation 98% 08/27/2025 11:00 AM EDT Inhaled Oxygen Concentration - - Weight 74.4 kg (164 lb) 08/27/2025 11:00 AM EDT Height 163.8 cm (5' 4.5 ) 08/27/2025 11:00 AM ED T Body Mass Index 27.72 08/27/2025 11:00 AM EDT Plan of Treatment Upcoming Encounters Date Type Department Care Team (Late st Contact Info) Description 09/10/2025 8:30 AM EDT Appointment [facility] [address] [place] [address] Jaime Hawthorne MD [address] [place] [address] 09/16/2025 10:00 AM EST Office Visit [facility] [address] [facility] [place] [address] Jaime Hawthorne MD [address] [place] [address] 09/22/2025 8:00 AM EST Office Visit [facility] [address] [facility] [address] [place] [phone] Ally Gallardo, [employer]ER [employer] [address] [place], [place] [phone] Health Maintenance Due Date Last Done Comments Hepatitis C Virus Screening 1999 Foot Exam 2009 Lipid Panel 2009 Ophthalmology Exam 2009 HIV Screening 2012 HPV Vaccines (1 - 3-dose series) 2014 Microalbumin/Creatinine Rati o Urine 2017 Pneumococcal Vaccine: Pediat joelle (0-5 Years) and At-Risk Patients (6 to 49 Years) (1 of 2 - PCV) 2018 05/02/2001, 12/12/2000, 08/21/2000 Influenza Vaccine 06/13/2025 08/04/2021, , 11/21/2018, Additional history exists COVID-19 Vaccine (6 - 2024-2 6 season) 2025 12/04/2021, 04/02/2021, 04/02/2021, Additional history exists Pap Smear (Ages 21-65) 01/25/2026 01/25/2023, 2021 Hemoglobin A1C 02/25/2026 08/27/2025, 07/14, 11/21/2018, Additional history exists Creatinine with GFR 08/27/2026 08/27/2025, 07/22/2021, 11/20/2019, Additional history exists DTaP/Tdap/Td Vaccines (6 - T d or Tdap) 08/04/2031 08/04/2021, 06/28/2001, 05/11/2000, Additional history exists Hepatitis B Vaccines Completed 06/28/2001, 12/12/2000, 05/11/2000 Procedures Procedure Name Priority Date/Time Associated Diagnosis Comments ECG 12-LEAD Routine 08/27/2025 11:07 AM EDT Preop cardiovascular exam HEMOGLOBIN A1C WITH ESTIMATED AVERAGE GLUCOSE Routine 08/27/2025 10:53 AM EDT Preop cardiovascular exam BASIC METABOLIC PANEL Routine 08/27/2025 10:53 AM EDT Preop cardiovascular exam COMPLETE BLOOD COUNT, WITH DIFFERENTIAL Routine 08/27/2025 10:53 AM EDT Preop cardiovascular exam THINPREP PAP TEST (DEAN OF EDUCATION) WITH HPV REFLEX Routine 01/25/2023 12:00 AM EDT from Last 3 Months or Most Recently Relevant to Health Maintenance Results * ECG 12 lead (08/27/2025 11:07 AM EDT) Ventricular rate 91 BPM EKG [facility] Atrial rate 91 BPM EKG [facility] P-R interval 144 ms EKG [facility] QRS duration 92 ms EKG [facility] Q-T interval 360 ms EKG [facility] QTC calculation (Bazett) 443 ms EKG [facility] P axis 39 degrees EKG [facility] R axis 70 degrees EKG [facility] T axis 63 degrees EKG [facility] 08/27/2025 11:0 7 AM EDT Narrative EKG [facility] - 08/27/2025 11:45 AM EDT Normal sinus rhythm Early Transition Borderline ECG No previous ECGs available Confirmed by MD Hurley John ([id number]) on 08/27/2025 11:45:35 AM Procedure Note Alpesh Hurley MD - 08/27/2025 Normal sinus rhythm Early Transition Borderline ECG No previous ECGs available Confirmed by MD Hurley John ([id number]) on 08/27/2025 11:45:35 AM Martin Worthy MD ECG ORDERABLES Final Result Performing Organization Address City/[facility]/ZIP Co de Phone Number [facility] * (ABNORMAL) Hemoglobin A1C with Estimated Average Glucose (08/27/2025 10:53 AM EDT) Hemoglobin A1C 7.1(H) <5.7 % 08/27/2025 3:33 PM EDT [facility] Comment: A1c% Interpretation 5.7 - 6.0 Increase risk of diabetes 6.1 - 6.4 Higher risk of diabetes > or = 6.5 Consistent with diabetes Diabetes Care, 33(Supp 1):S1-S61, 2009 Estimated Average Glucose 157 mg/dL 08/27/2025 3:33 PM EDT [facility] Blood Blood specimen / Unknown 08/27/2025 10:53 AM EDT 08/27/2025 2:54 PM EDT us Martin Worthy MD LAB BLOOD ORDERABLES Final Re sult [address] [address], [address] [address] * Complete Blood Count, with Differential (08/27/2025 10:53 AM EDT) White Blood Cell Count 7.1 4.0 - 11.0 Thou/uL 08/27/2025 3:08 PM [facility] Platelet Count 331 150 - 450 Thou/uL 08/27/2025 3:08 PM [facility] Hemoglobin 14.4 11.7 - 15.7 g/dL 08/27/2025 3:08 PM [facility] Hematocrit 42.4 35.0 - 47.0 % 08/27/2025 3:08 PM [facility] Red Blood Cell Count 4.77 4.00 - 5.40 Mil/uL 08/27/2025 3:08 PM [facility] MCV 89 80 - 100 fL 08/27/2025 3:08 PM [facility] MCH 30.2 26.0 - 34.0 pg 08/27/2025 3:08 PM [facility] MCHC 34.0 30.0 - 36.0 g/dL 08/27/2025 3:08 PM [facility] RDW 11.7 11.5 - 14.5 % 08/27/2025 3:08 PM [facility] MPV 8.9 7.5 - 12.5 fL 08/27/2025 3:08 PM [facility] Neutrophils Auto 55.6 % 08/27/20 3:08 PM [facility] Immature Granulocytes 0.4 % 08/27/2025 3:08 PM [facility] Lymphocytes Auto 36.4 % 08/27/20 3:08 PM [facility] Monocytes Auto 6.2 % 08/27/2025 3:08 PM [facility] Eosinophils Auto 0.7 % 08/27/20 3:08 PM [facility] Basophils Auto 0.7 % 08/27/2025 3:08 PM [facility] Abs Neutrophils Auto 3.95 2.00 - 7.50 Thou/uL 08/27/2025 3:08 PM [facility] Abs Immature Granulocytes 0.03 0.00 - 0.10 Thou/uL 08/27/2025 3:08 PM [facility] Abs Lymphocytes Auto 2.59 1.50 - 4.50 Thou/uL 08/27/2025 3:08 PM EDT [facility] Abs Monocytes Auto 0.44 0.20 - 1.50 Thou/uL 08/27/2025 3:08 PM EDT [facility] Abs Eosinophils Auto 0.05 0.00 - 0.70 Thou/uL 08/27/2025 3:08 PM EDT [facility] Abs Basophils Auto 0.05 0.00 - 0.20 Thou/uL 08/27/2025 3:[facility] Blood Blood specimen / Unknown 08/27/2025 10:53 AM EDT 08/27/2025 2:54 PM EDT Martin Worthy MD LAB BLOOD ORDERABLES [place] [address], [place] [address] * (ABNORMAL) Basic Metabolic Panel (08/27/2025 10:53 AM EDT) Glucose 185(H) 65 - 99 mg/dL 08/27/2025 3:33 PM T [facility] Comment:Fasting: <100 mg/dL, Non-Fasting: <200 mg/dL (ADA 2005) Blood Urea Nitrogen (BUN) 7(L) 8 - 21 mg/dL 08/27/2025 3:33 PM [facility] Creatinine 0.81 0.40 - 1.10 mg/dL 08/27/2025 3:33 PM [facility] eGFR >90 >59 08/27/2025 3:33 PM [facility] Comment:CKD-EPI (2020) in mL /min/1.73 sq meters. Sodium 134(L) 136 - 145 mmol/L 08/27/2025 3:33 PM EDT [facility] Potassium 4.4 3.4 - 5.3 mmol/L 08/27/2025 3:33 PM [facility] Chloride 101 98 - 107 mmol/L 08/27/2025 3:33 PM EDT [facility] CO2 22 22 - 33 mmol/L 08/27/2025 3:33 PM EDT [facility] Anion Gap 11 7 - 17 08/27/2025 3:33 PM EDT [facility] Calcium 9.3 8.7 - 10.5 mg/dL 08/27/2025 3:33 PM EDT [facility] BUN/Creatinine Ratio 9(L) 10.0 - 25.0 Ratio 08/27/2025 3:33 PM EDT [facility] Blood Blood specimen / Unknown 08/27/2025 10:53 AM EDT 08/27/2025 2:54 PM EDT us Martin Worthy MD LAB BLOOD ORDERABLES Final Re sult [address] [address], [address] [address] * ThinPrep Pap Test (Research Technician) with HPV Reflex (01/25/2023 12:00 AM EDT) [...] has been evaluated with computer assisted technology. Debug Technician: [facility] Comment: DCR, CT(ASCP) CT screening location: [address] [address] Comment [facility] Comment: EXPLANATORY NOTE: [...] [facility] - 01/27/2023 9:08 AM EDT [id number] NG Ivan Richards FIELD RETURN REPAIRER LAB AMB PATH/CYTO ORDERABLES Final Result [facility] [address] [facility] [address], [place] [address] from Last 3 Months or Most Recently Relevant to Health Maintenance Insurance [facility] HMO [facility] H[facility] O [facility] HMO Care Teams Senior Service Technician Relationship Specialty Start Date End Date Ana Laura Arzate PA-C [address] [place] [address] [place] [address] PCP - General 08/27/25
--- OUTSIDE RECORDS SUMMARY | 2025-09-05 16:37 | XMS_ITS | Encounter Summary ---
Author Organization [facility] Address [address] [facility] [address] [place] [address] Phone Care Team Providers Care Waterworks Employee Name Role Phone Isaias House, February Lupe LONDON Primary Care Pr ovider Ana Laura Reis Primary Care Provider Encounter Details Date Type Department Care Team (Late st Contact Info) Description 04/19/2023 Procedure Pass [address] [place] [address] Social History Tobacco Use Types Packs/Day Years Used Date Smoking Tobacco: Never Smokeless Tobacco: Never Alcohol Use Standard Drinks/Week Comments Yes 1 (1 standard drink = 0.6 oz pur e alcohol) Education Answer Date Recorded Are you interested in more education? Not on jak e 03/11/2023 Are you concerned about learning? Not on file 03/11/2023 No 03/11/2023 No 03/11/2023 Digital Access Answer Date Recorded No 04/11/2023 No 04/11/2023 Reliable internet access at home? Not on file 04/11/2023 Device with a working camera? Not on file Comments No Sex and Gender Information Value Date Recorded Sex Assigned at Female 06/13/2021 8:01 PM EDT Legal Sex Female 7:52 PM EDT Gender Identity Female 06/13/2021 8:01 PM EDT Sexual Orientation Not on file documented as of this encounter Plan of Treatment Not on file documented as of this encounter Visit Diagnoses Not on filedocumented in this encounter Care Teams Waterworks Employee Relationship Specialty Start Date End Date Isaias House Farrah LITA Andrade [email or web address] PCP - General Nurse Practitioner 03/27/23 03/27/25 Ana Laura Reis PA [address] [place] [address] [place] [phone] PCP - General Physician Air Pollution Engineer 03/28/25 documented as of this encounter Additional Source Comments The information contained in this document represents components of the legal health record. It is not the complete legal health record.[facility]
--- OUTSIDE RECORDS SUMMARY | 2025-09-05 16:37 | XMS_ITS | Clinical Summary ---
Author Organization [facility] Address [address] [place] [address] Phone Care Team Providers Care Economic Historian Name Role Phone Ana Laura Reis Primary Care Provider Allergies No known active allergies Medications ondansetron (ZOFRAN-ODT) 4 MG disintegrating tablet Take 1 tablet (4 mg total) by mouth every 8 (eight) hours as needed for nausea. 15 tablet 06/14/20 21 Active Medication-Free Text Siasp insulin in insulin pump Active escitalopram oxalate (LEXAPRO) 20 MG tablet Take 20 mg by mouth daily. Active buPROPion (WELLBUTRIN XL) 300 MG ER 24 hr tablet Take 450 mg by mouth daily. Active Medication-Free Text ALIZA control pill Active pantoprazole (PROTONIX) 40 MG tablet Take 40 mg by mouth daily. Active acyclovir (ZOVIRAX) 200 MG capsule Take 400 mg by mouth. Active fexofenadine (DREW) 180 MG tablet Take 180 mg by mouth daily. Active cholecalciferol (VITAMIN D3) 5,000 unit tablet Take 1,000 Units by mouth daily. Active traMADoL (ULTRAM) 50 mg tablet Take 1-2 tablets (50-100 mg total) by mouth every 8 (eight) hours as needed for pain (specific location in comments). 5 tablet 07/14/20 23 Active Additional Information Patient not taking.Reported on 07/20/2023 Active Problems No known active problems Social History Tobacco Use Types Packs/Day Years Used Date Smoking Tobacco: Never Smokeless Tobacco: Never Tobacco Cessation:Counseling Given: Not Answered Alcohol Use Standard Drinks/Week Comments Yes 1 [...] PM EDT Sexual Orientation Not on file Last Filed Vital Signs Vital Sign Reading Time Taken Comments Blood Pressure 113/70 07/14/2023 9:52 AM EDT Pulse 87 07/14/2023 9:20 AM EDT Temperature 36.3 C (97.3 F) 07/14/2023 9:10 AM EDT Respiratory Rate 12 07/14/2023 9:20 AM EDT Oxygen Saturation 96% 07/14/2023 9:52 AM EDT Inhaled Oxygen Concentration - - Weight 77.1 kg (170 lb) 07/14/2023 7:45 AM EDT Height 162.6 cm (5' 4 ) 07/14/2023 7:45 AM EDT Body Mass Index 29.18 07/14/2023 7:45 AM EDT Plan of Treatment Health Maintenance Due Date Last Done Comments DEPRESSION SCREENING 2011 SMOKING Hx and SMOKELESS TOBACCO SCREENING 2012 HPV VACCINES (1 - 3-dose series) 2014 HEPATITIS C SCREENING 2017 HIV ONE-TIME SCREENING (18-6 5 YEARS) 2017 PAP SMEAR 2020 INFLUENZA VACCINE (#1) 2025 09/23/2016 COVID-19 VACCINE (2024-2 6 season) 2025 12/04/2021, 04/02/2021, 03/04/2021 Adult Td,Tdap Booster 08/04/2031 08/04/2021 MENINGOCOCCAL VACCINES (ACWY) Completed 09/23/2016 HEPATITIS A VACCINES Completed 05/03/2017, 09/23/2016 MENINGOCOCCAL VACCINES (B) Completed 05/03, 09/23/2016 HIB VACCINES Aged Out No longer eligi ble based on patient's age to complete this topic PNEUMOCOCCAL VACCINES (0-49 years) Aged Out No longer eligible b ased on patient's age to complete this topic Medical Devices Not on file Insurance OUT [facility] POS OUT OF [facility] POS BLUE CROSS OUT OF STATE POS BLUE CROSS OUT OF STATE POS BLUE CROSS OUT OF STATE POS BLUE CROSS OUT STATE POS PROGRESSIVE INSURANCE Advance Directives For more information, please contact: [phone] (9AM - 5PM [place], Monday-Monday) * Full Code (Latest Code Status on File) Date Activated Date Inactivated Comments 07/14/2023 7:47 AM Question Answer Comments Code Status Confirmed With: Patient Care Teams Economic Historian Relationship Specialty Start Date End Date Ana Laura Reis PA [address] [place] [address] [place] [address] PCP - General Physician Web Production Manager 03/28/25 Additional Source Comments The information contained in this document represents components of the legal health record. It is not the complete legal health record.[facility]
--- OUTSIDE RECORDS SUMMARY | 2025-09-05 16:37 | XMS_ITS | Encounter Summary ---
Author Organization [facility] Address [address] [facility] [address] [place] [address] Phone Care Team Providers Care Pharmaceutical Process Engineer Name Role Phone Ana Laura Reis Primary Care Provider Encounter Details Date Type Department Care Team (Late st Contact Info) Description 03/28/2025 Ancillary Orders [facility], X-Ray - [address] [address] Freddy Harden, RAQUEL [facility] [place] [address] Low back pain, unspecified back pain laterality, unspecified chronicity, unspecified whether sciatica present (Primary Dx) Social History Tobacco Use Types Packs/Day Years [...] as of this encounter Visit Diagnoses Diagnosis Low back pain, unspecified back pain laterality, unspecified chronicity, unspecified whether sciatica present- Primary documented in this encounter Care Teams Pharmaceutical Process Engineer Relationship Specialty Start Date End Date Ana Laura Reis PA [address] [place] [address] [place] [address] PCP - General Physician Welder Helper 03/28/25 documented as of this encounter Additional Source Comments The information contained in this document represents components of the legal health record. It is not the complete legal health record.[facility]
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
--- OUTSIDE RECORDS SUMMARY | 2025-09-05 16:37 | XMS_ITS | Encounter Summary ---
Author Organization [facility] Address [address] [place] [address] Care Team Providers Care Sales Clerk Supervisor Name Role Phone Stiven Kay MD Primary Care Provider [phone] Encounter Details Date Type Department Care Team ([facility] Contact Info) Description 10/01/2013 Scanned Document [facility] [place] [address], [address] [place], [place] [address] Urban, Brandin Pike, FLOATING OPERATOR [address] [facility] [address] [facility] [address] [place] [address] Social History Tobacco Use Types [...] documented as of this encounter Care Teams Sales Clerk Supervisor Relationship Specialty Start Date End Date Stiven Kay MD [address] [place] [phone] PCP - General Pediatrics 11/27/15 documented as of this encounter
--- OUTSIDE RECORDS SUMMARY | 2025-09-05 16:37 | XMS_ITS | Encounter Summary ---
Author Organization [facility] Address [address] [place] [address] Care Team Providers Care Cloth Framer Name Role Phone Ana Laura Arzate PA-C Primary Car e Provider Encounter Details Date Type Department Care Team ([facility] Contact Info) Description 09/05/2025 Scanned Document [facility] [address] [place] [address] Jaime Hawthorne MD [address] [place] [phone] Social History Tobacco Use Types Packs/Day Years [...] PM EST documented as of this encounter Plan of Treatment Upcoming Encounters Date Type Department Care Team ([facility] Contact Info) Description 09/10/2025 8:30 AM EDT Appointment [facility] [place] [address] [place] [address] Jaime Hawthorne MD [address] Bats[address] Payton [address] [place] [phone] 09/16/2025 10:00 AM EST Office Visit [facility] [address] [facility] [place] [phone] Jaime Hawthorne MD [address] Pay[address] [place] [phone] 09/22/2025 8:00 AM EST Office Visit [facility] [address] [facility] [address] [place] [address] Ally Gallardo, SARITA [address] [place] [address] documented as of this encounter Visit Diagnoses Not on filedocumented in this encounter Care Teams Cloth Framer Relationship Specialty Start Date End Date Atilio-Ana Laura Woody PA-C [address] [place] [address] Dr [place], [place] [address] PCP - General 08/27/25 documented as of this encounter
--- OUTSIDE RECORDS SUMMARY | 2025-09-05 16:37 | XMS_ITS | Encounter Summary ---
Author Organization [facility] Address [address] [place] [address] Care Team Providers Care Deputy Commissioner Name Role Phone Ana Laura Arzate PA-C Primary Car e Provider Encounter Details Date Type Department Care Team (Late st Contact Info) Description 08/28/2025 Scanned Document [facility] in [address] [place] [phone] Ana Laura Arzate PA-C [address] [place] [address] Social History Tobacco Use Types Packs/Day Years [...] Info) Description 09/10/2025 8:30 AM EDT Appointment [facility] [address] [place] [address] Jaime Hawthorne MD [address] [place] [phone] 09/16/2025 10:00 AM EST Office Visit [facility] [address] [facility] [place] [phone] Jaime Hawthorne MD [address] [facility] [address] [place] [phone] 09/22/2025 8:00 AM EST Office Visit [facility] [address] [facility] [address] [place] [address] Ally Gallardo, SARITA [address] [place] [address] documented as of this encounter Visit Diagnoses Not on filedocumented in this encounter Care Teams Deputy Commissioner Relationship Specialty Start Date End Date Atilio-Ana [place] [address] PCP - General 08/27/25 documented as of this encounter
--- OUTSIDE RECORDS SUMMARY | 2025-09-05 16:37 | XMS_ITS | Clinical Summary ---
Author Organization [facility] Address [address] [place] [address] Care Team Providers Care Pipe Supervisor Name Role Phone Stiven Kay MD Primary Care Provider + [phone] Source Comments Please note that some or [...] Not on file Insurance GENERIC Care Teams Pipe Supervisor Relationship Specialty Start Date End Date Stiven Kay MD [address] [place] [phone] PCP - General General Pediatrics 08/25/21
--- OUTSIDE RECORDS SUMMARY | 2025-09-05 16:37 | XMS_ITS | Encounter Summary ---
Author Organization [facility] Address [address] [place] [address] [place] [address] Phone Care Team Providers Care Campaign Fundraiser Name Role Phone Isaias House, February Lupe LONDON Primary Care Pr ovider Ana Laura Reis Primary Care Provider Encounter Details Date Type Department Care Team (Late st Contact Info) Description 07/14/2023 Procedure Pass OR Admitting Dept - Virtual Department [address] [place] [address] Social History Tobacco Use Types Packs/Day Years [...] on filedocumented in this encounter Care Teams Campaign Fundraiser Relationship Specialty Start Date End Date Isaias House Farrah LITA Andrade [email or web address] PCP - General Nurse Practitioner 03/27/23 03/27/25 Ana Laura Reis PA [address] [place] [address] [place] [phone] PCP - General Physician School Bus Dispatcher 03/28/25 documented as of this encounter Additional Source Comments The information contained in this document represents components of the legal health record. It is not the complete legal health record.[facility]
--- OUTSIDE RECORDS SUMMARY | 2025-09-05 16:37 | XMS_ITS | Encounter Summary ---
Author Organization [facility] Address [address] [employer] [address] [place] [address] Phone Care Team Providers Care Chief Revenue Officer Name Role Phone Isaias House February Lupe LONDON Primary Care Pr ovider Ana Laura Reis Primary Care Provider Reason for Referral * MRI/CAT Scan - Closed Specialty Diagnoses / Procedures Referred By Contac t Referred To Contact Radiology Diagnoses Palpable mass of lower back Procedures MRI Pelvis (Bone) MRI Pelvis (GI/) CHG CT SCAN OF PELVIS CONTRAST CHG CT SCAN,PELVIS,W/O CONTRAST CHG CT SCAN OF PELVIS COMBO CHG MRI, PELVIS, COMBO Alistair Bender MD Phone: tel: fax: [email or web address] Referral ID Status Reason Start Date Expiration Date Visits Re quested Visits Authorized [id number] Closed 08/10/2023 11/06/2023 1 1 Encounter Details Date Type Department Care Team ([facility] st Contact Info) Description 04/19/2023 Transcribe Orders Virtual Department [address] [place] [address] Alistair Bender MD [address] [address] Palpable mass of lower back (Primary Dx) Social History Tobacco Use Types Packs/Day Years Used Date Smoking Tobacco: Never Smokeless Tobacco: Never Alcohol Use Standard Drinks/Week Comments Not Currently 0 (1 standard drink = 0.6 oz [...] a working camera? Not on file Comments Unknown Sex and Gender Information Value Date Recorded Sex Assigned at Female 06/13/2021 8:01 PM EDT Legal Sex Female 7:52 PM EDT Gender Identity Female 06/13/2021 8:01 PM EDT Sexual Orientation Not on file documented as of this encounter Plan of Treatment Not on file documented as of this encounter Results * MRI PELVIS (BONY FOCUS) WITH AND WITHOUT CONTRAST (08/10/2023 12:13 PM EDT) Anatomical Region Laterality Modality Pelvis Magnetic Resonan ce 08/12/2023 6:28 AM EDT Impressions 08/12/2023 8:15 AM EDT No focal soft tissue mass or collection corresponding to the two skin markers present along the bilateral lower lumbar regions. Mild linear subcutaneous signal abnormality subjacent to the left skin marker extending to the skin surface may reflect postsurgical change from reported prior lipoma excision. Narrative 08/12/2023 8:15 AM EDT MRI PELVIS (BONY FOCUS) WITH AND WITHOUT CONTRAST, MRI LUMBAR SPINE (BONE) WITH AND WITHOUT CONTRAST TECHNIQUE: Multi-sequence, multi-planar MRI of the lumbar spine and pelvis with and without intravenous contrast. COMPARISON: None FINDINGS: LUMBAR FINDINGS: Alignment and Vertebrae: Normal alignment. No compression fracture. Left facet arthropathy L2-L3, L3-L4, and L4-L5 Marrow: Normal. No bone marrow replacing lesion. Discs and Endplates: Normal intervertebral disc heights and signal. Other Findings: None. Findings by level: PELVIS: Bone: No fracture, sacroiliitis, or focal bone lesion. Hip Joints: Normal. No subchondral edema. No effusion or synovitis. Tendons and Muscles: Normal. Tendons about both hips are intact. No focal fatty muscle atrophy. Soft Tissues: Two skin markers are present along the bilateral lower lumbar regions, with no corresponding soft tissue mass or collection. There is linear T1 hypointense signal along the subcutaneous tissue subjacent to the left skin marker, which extends to the skin surface. There is also mild dependent edema in the subcutaneous tissues subjacent to the region of both skin markers. No soft tissue mass. No bursal collection. Miscellaneous: No intrapelvic soft tissue abnormality. Procedure Note Ryan Freeman MD - 08/12/2023 MRI PELVIS (BONY FOCUS) WITH AND WITHOUT CONTRAST, MRI LUMBAR SPINE (BONE)WITH AND WITHOUT CONTRAST TECHNIQUE: Multi-sequence, multi-planar MRI of the lumbar spine and pelviswith and without intravenous contrast. COMPARISON: None FINDINGS: LUMBAR FINDINGS: Alignment and Vertebrae: Normal alignment. No compression fracture. Leftfacet arthropathy L2-L3, L3-L4, and L4-L5 Marrow: Normal. No bone marrow replacing lesion. Discs and Endplates: Normal intervertebral disc heights and signal. Other Findings: None. Findings by level: PELVIS: Bone: No fracture, sacroiliitis, or focal bone lesion. Hip Joints: Normal. No subchondral edema. No effusion or synovitis. Tendons and Muscles: Normal. Tendons about both hips are intact. No focalfatty muscle atrophy. Soft Tissues: Two skin markers are present along the bilateral lowerlumbar regions, with no corresponding soft tissue mass or collection.There is linear T1 hypointense signal along the subcutaneous tissuesubjacent to the left skin marker, which extends to the skin surface.There is also mild dependent edema in the subcutaneous tissues subjacentto the region of both skin markers. No soft tissue mass. No bursalcollection. Miscellaneous: No intrapelvic soft tissue abnormality. IMPRESSION: No focal soft tissue mass or collection corresponding to the two skinmarkers present along the bilateral lower lumbar regions. Mild linearsubcutaneous signal abnormality subjacent to the left skin markerextending to the skin surface may reflect postsurgical change fromreported prior lipoma excision. us Alistair Bender MD IMG MR PELVIS Final Resu lt documented in this encounter Visit Diagnoses Diagnosis Palpable mass of lower back- Primary Palpable mass of lower back documented in this encounter Care Teams Chief Revenue Officer Relationship Specialty Start Date End Date Isaias House February LITA Andrade [email or web address] PCP - General Nurse Practitioner 03/27/23 03/27/25 Ana Laura Reis PA [address] [place] [address] [place] [phone] PCP - General Physician Social Science Manager 03/28/25 documented as of this encounter Additional Source Comments The information contained in this document represents components of the legal health record. It is not the complete legal health record.[facility]
--- OUTSIDE RECORDS SUMMARY | 2025-09-05 16:37 | XMS_ITS | Clinical Summary ---
Author Organization [address] Address [address] [place] [phone] Care Team Providers Care Dental Assistant Instructor Name Role Phone Stiven Kay MD Primary Care Provider + [phone] Allergies No known active allergies Medications drospirenone-ethin [...] 04/18/20 18 Active blood-glucose meter,continuous (DEXCOM G6 AUTO TOP MECHANIC) MiscIndications:Ty pe 1 diabetes mellitus without complication [...] (ACETONE, URINE, TEST) stripsIndications: Type 1 diabetes mellitus (HC CODE),Type 1 diabetes mellitus without complication Use to [...] 10 TIMES DAILY 900 each 3 08/23/20 21 Active insulin lispro-aabc (LYUMJEV U-100 INSULIN) 100 [...] skin every other day. 50 each 05/04/20 22 Active blood-glucose transmitter (DEXCOM G6 TRANSMITTER) deviceIndications: Type 1 diabetes mellitus without complication Change every 90 days as directed 1 each 1 07/06/20 22 Active Active Problems Problem Noted Date Diagnosed Date Intractable vomiting with nausea 07/22/2021 Overview (02/11/2022): February 2022 IMO replacements Emesis, persistent 07/22/2021 Carpal tunnel syndrome, bilateral 05/29/2020 Herpes 06/27/2019 Depression 12/26/2013 Type 1 diabetes 10/04/2013 PCOS (polycystic ovarian syndrome) 10/04/2013 Immunizations Immunization Administration Dates Next Due Influenza, injectable, quadrivalent, [...] 96 08/04/2021 11:37 AM EDT Temperature 36.7 C (98.1 F) 08/04/2021 11:37 AM EDT Respiratory Rate 20 07/24/2021 12:05 PM EDT [...] Tetanus adult (Td q 10,TDAP once) 2019 Influenza vaccine 06/13/2025 11/21/2018 Covid-19 vaccine series ( - 2025-26 season) 2025 04/02/2021, 03/04/2021 Cervical cancer screening 01/25/20262022, 12/16/2021 RSV Immunization (1 - 1-dose 75+ series) 2074 HIB Vaccines Aged Out No longer eligi ble based on patient's age to complete this topic Hepatitis A Vaccines Aged Out No long er eligible based on patient's age to complete this topic IPV Vaccines Aged Out No longer eligi ble based on patient's age to complete this topic Meningococcal B Vaccine Aged Out No l onger eligible based on patient's age to complete this topic Meningococcal Vaccine Aged Out No patsy chevy eligible based on patient's age to complete this topic Pneumococcal Vaccine (2 - 49 years) Aged Out No longer eligible b ased on patient's age to complete this topic Rotavirus Vaccines Aged Out No longer eligible based on patient's age to complete this topic Insurance [employer] ADITI CORLEY [id number] CIGNA * Guarantor: STEPHENIE MELENDEZ Account Type Relation to Patient Date of Phone Billing Address Personal/Family Advance Directives * Full ACLS (Latest Code Status on File) Date Activated Date Inactivated Comments 07/22/2021 11:20 PM 07/24/2021 9:13 PM Care Teams Dental Assistant Instructor Relationship Specialty Start Date End Date Stiven Kay MD [address] [place] [phone] PCP - General Pediatrics 11/27/15
--- OUTSIDE RECORDS SUMMARY | 2025-09-05 16:37 | XMS_ITS | Encounter Summary ---
Author Organization [facility] Address [address] [place] [phone] Care Team Providers Care Inspector Watch Parts Name Role Phone Stiven Kay MD Primary Care Provider [phone] Reason for Visit * Reason Comments Medication Refill Encounter Details Date Type Department Care Team (Late st Contact Info) Description 10/21/[address] [phone] Jorge L, Brandin Pike, PLASTIC WELDER [address] [facility] [address] [place] [address] Medication Refill Social History Tobacco Use [...] documented as of this encounter Care Teams Inspector Watch Parts Relationship Specialty Start Date End Date Stiven Kay MD [address] [place] [phone] PCP - General Pediatrics 11/27/15 documented as of this encounter
--- OUTSIDE RECORDS SUMMARY | 2025-09-05 16:37 | XMS_ITS | Encounter Summary ---
Author Organization [facility] Address [address] [place] [phone] Care Team Providers Care Schedule Checker Name Role Phone Stiven Kay MD Primary Care Provider [phone] Encounter Details Date Type Department Care Team (Late st Contact Info) Description 06/29/2016 Scanned Document [place] [address] Gaby Velez MD PhD [address] [place] [phone] Social History Tobacco Use Types Packs/Day [...] documented as of this encounter Care Teams Schedule Checker Relationship Specialty Start Date End Date Stiven Kay MD [address] [place] [phone] PCP - General Pediatrics 11/27/15 documented as of this encounter
--- OUTSIDE RECORDS SUMMARY | 2025-09-05 16:37 | XMS_ITS | Encounter Summary ---
Author Organization [facility] and [facility] Address [address] [place] [address] Care Team Providers Care Human Resources Operations Specialist Name Role Phone Stiven Kay MD Primary Care Provider [phone] Encounter Details Date Type Department Care Team ([facility] Contact Info) Description 09/18/2013 Scanned Document [facility] [address], [address] [place], [place] [phone] Urban, Brandin Pike, DIESEL TRUCK TECHNICIAN [address] [facility] [address] [place] [phone] Social History Tobacco Use Types Packs/Day Years [...] documented as of this encounter Care Teams Human Resources Operations Specialist Relationship Specialty Start Date End Date Stiven Kay MD [address] [place] [phone] PCP - General Pediatrics 11/27/15 documented as of this encounter
--- OUTSIDE RECORDS SUMMARY | 2025-09-05 16:37 | XMS_ITS | Encounter Summary ---
Author Organization [facility] Address [address] [place] [address] Care Team Providers Care Senior Credit Officer Name Role Phone Pcp, No Primary Care Provider Unavailabl e System, Provider Not In Primary Care Provider Un available Ana Laura Arzate PA-C Primary Car e Provider Ana Laura Arzate PA-C Primary Car e Provider Encounter Details Date Type Department Care Team (Late st Contact Info) Description 08/20/2021 Scanned Document [facility] [address] [phone] Provider, MD John [address] [place] [address] Social History Tobacco Use Types Packs/Day Years [...] [facility] [address] [place] [address] Jaime Hawthorne MD [address] [place] [address], [place] [phone] 09/16/2025 10:00 AM EST Office Visit [facility] [place] 15 [facility], [place] [address] Jaime Hawthorne MD [address] [place] [phone] 09/22/2025 8:00 AM EST Office Visit [facility] [address] [facility] [address] [place] [address] Ally Gallardo, ASSESSMENT SERVICES MANAGER [address] [place] [address] documented as of this encounter Visit Diagnoses Not on filedocumented in this encounter Care Teams Senior Credit Officer Relationship Specialty Start Date End Date Pcp, No PCP - General 03/12/25 03/17/25 System, Provider Not In PCP - General 03/18/25 08/04/25 [place] [address] PCP - General 08/05/25 08/26/25 [place] [address] PCP - General 08/27/25 documented as of this encounter
--- OUTSIDE RECORDS SUMMARY | 2025-09-05 16:37 | XMS_ITS | Encounter Summary ---
Author Organization [facility] Address [address] [place] [address] Phone Care Team Providers Care Dip Lube Operator Name Role Phone Pcp, Unknown Primary Care Provider Unavailmanuel e Kirsten Ruiz NP Primary Care Pr ovider Ana Laura Reis Primary Care Provider Reason for Referral * Consultation (Routine) - Closed Specialty Diagnoses / Procedures Referred By Sheila perez Referred To Contact Genetics Diagnoses Family history of malignant neoplasm of breast Kirsten Ruiz NP Phone: tel: fax: mailto:[facility] [address] [place] [address] Phone: tel: Referral ID Status Reason Start Date Expiration Date Visits Re quested Visits Authorized [id number] Closed 03/21/2023 03/21/2024 1 1 Encounter Details Date Type Department Care Team (Latest Contact Info) Description 03/21/2023 Transcribe Orders Virtual Department [address] [place] [address] Kirsten Ruiz NP [address] [place] [address] [email or web address] Family history of malignant neoplasm of breast (Primary Dx) Social History Tobacco Use Types Packs/Day Years Used Date Smoking Tobacco: Never Smokeless Tobacco: Never Alcohol Use Standard Drinks/Week Comments Not Currently 0 (1 standard drink = 0.6 oz pur e alcohol) Education Answer Date Recorded Are you interested in more education? Not on jak e 03/11/2023 Are you concerned about learning? Not on file 03/11/2023 No 03/11/2023 No 03/11/2023 Comments Unknown Sex and Gender Information Value Date Recorded Sex Assigned at Female 06/13/2021 8:01 PM EDT Legal Sex Female 7:52 PM EDT Gender Identity Female 06/13/2021 8:01 PM EDT Sexual Orientation Not on file documented as of this encounter Plan of Treatment Scheduled Referrals Name Type Priority Associated Diagnoses Order Schedule Ambulatory referral to [facility] Genetics Outpatient Referral Routine Family history of malignant neoplasm of breast Ordered: 03/21/2023 documented as of this encounter Visit Diagnoses Diagnosis Family history of malignant neoplasm of breast- Primary documented in this encounter Care Teams Dip Lube Operator Relationship Specialty Start Date End Date Pcp, Unknown PCP - General 06/13/21 03/26/23 [facility] February LITA Andrade [email or web address] PCP - General Nurse Practitioner 03/27/23 03/27/25 Ana Laura Reis PA [address] [place] [address] [place] [phone] PCP - General Physician Greenhouse Technician 03/28/25 documented as of this encounter Additional Source Comments The information contained in this document represents components of the legal health record. It is not the complete legal health record.[facility]
--- OUTSIDE RECORDS SUMMARY | 2025-09-05 16:37 | XMS_ITS | Encounter Summary ---
Author Organization [facility] Address [address] [place] [address] Care Team Providers Care Plumbing Service Technician Name Role Phone Ana Laura Arzate PA-C Primary Car e Provider Encounter Details Date Type Department Care Team ([facility] Contact Info) Description 09/05/2025 Scanned Document [facility] [address] [place] [address] Jaime Hawthorne MD [address] [place] [phone] Social History Tobacco Use Types Packs/Day Years [...] Upcoming Encounters Date Type Department Care Team ([facility] Contact Info) Description 09/10/2025 8:30 AM EDT Appointment [facility] [place] [address] [place] [address] Jaime Hawthorne MD [address] [place] [phone] 09/16/2025 10:00 AM EST Office Visit [facility] 15 [facility], [place] [phone] Jaime Hawthorne MD [address] [place] [phone] 09/22/2025 8:00 AM EST Office Visit [facility] [address] [facility] [address] [place] [address] Ally Gallardo, SARITA [address] [place] [address] documented as of this encounter Visit Diagnoses Not on filedocumented in this encounter Care Teams Plumbing Service Technician Relationship Specialty Start Date End Date Atilio-Ana Laura Woody PA-C [address] [place] [address] Dr [place], FAVIAN [address] PCP - General 08/27/25 documented as of this encounter
--- OUTSIDE RECORDS SUMMARY | 2025-09-05 16:37 | XMS_ITS | Encounter Summary ---
Author Organization [facility] Address [address] [place] [address] Care Team Providers Care Computer Network And Systems Engineer Name Role Phone Pcp, No Primary Care Provider Unavailabl e System, Provider Not In Primary Care Provider Un available Ana Laura Arzate PA-C Primary Car e Provider Ana Laura Arzate PA-C Primary Car e Provider Encounter Details Date Type Department Care Team (Late st Contact Info) Description 08/24/2021 Scanned Document [facility] [address] [address] Provider, MD John [address] [place] [address] Social History Tobacco Use Types Packs/Day Years [...] Description 09/10/2025 8:30 AM EDT Appointment [facility] [address] [place] [address] Jaime Hawthorne MD [address] [place], [place] [phone] 09/16/2025 10:00 AM EST Office Visit [facility] [place] 15 [facility], [place] [address] Jaime Hawthorne MD [address] [place] [phone] 09/22/2025 8:00 AM EST Office Visit [facility] 428 [facility] 207 [place] [address] Ally Gallardo, AUDITING CLERK [address] [place], [place] [phone] documented as of this encounter Visit Diagnoses Not on filedocumented in this encounter Care Teams Computer Network And Systems Engineer Relationship Specialty Start Date End Date Pcp, No PCP - General 03/12/25 03/17/25 System, Provider Not In PCP - General 03/18/25 08/04/25 Ana Laura Arzate PA-C [address] [place] [address] PCP - General 08/05/25 08/26/25 Ana Laura Arzate PA-C [address] [place] [address] PCP - General 08/27/25 documented as of this encounter
--- OUTSIDE RECORDS SUMMARY | 2025-09-05 16:37 | XMS_ITS | Encounter Summary ---
Author Organization [facility] Address [address] [place] [address] Care Team Providers Care Gravity Meter Observer Name Role Phone Stiven Kay MD Primary Care Provider [phone] Encounter Details Date Type Department Care Team ([facility] Contact Info) Description 09/18/2013 Scanned Document [facility] [address], [address] [place], [place] [address] Urban, Brandin Pike, FURNITURE REPAIRER [address] [facility] [address] [facility] [address] [place] [phone] Social History Tobacco Use Types Packs/Day Years [...] documented as of this encounter Care Teams Gravity Meter Observer Relationship Specialty Start Date End Date Stiven Kay MD [address] [place] [phone] PCP - General Pediatrics 11/27/15 documented as of this encounter
--- OUTSIDE RECORDS SUMMARY | 2025-09-05 16:37 | XMS_ITS | Encounter Summary ---
Author Organization [facility] Address [address] [place] [address] [place] [address] Phone Care Team Providers Care Real Property Evaluator Name Role Phone [facility] February Lupe LONDON Primary Care Pr ovider Ana Laura Reis Primary Care Provider Reason for Referral * MRI/CAT Scan - Closed Specialty Diagnoses / Procedures Referred By Contac t Referred To Contact Radiology Diagnoses Cervicalgia Procedures CT Thoracic Spine CHG CT SCAN,THORACIC SPINE,W/O CONTRAST Dae Almaguer NP [address] [place] [address] Phone: tel: fax: Referral ID Status Reason Start Date Expiration Date Visits Re quested Visits Authorized [id number] Closed 03/28/2025 06/12/2025 1 1 * MRI/CAT Scan - Closed Specialty Diagnoses / Procedures Referred By Contac t Referred To Contact Radiology Diagnoses Unspecified injury of head, subsequent encounter Procedures MRI Brain CHG MRI BRAIN Dae Almaguer NP [address] [place] [address] Phone: tel: fax: Referral ID Status Reason Start Date Expiration Date Visits Re quested Visits Authorized [id number] Closed 03/21/2025 09/21/2025 1 1 Encounter Details Date Type Department Care Team (Latest Contact Info) Description 03/21/2025 Transcribe Orders Virtual Department [address] [place] [address] Dae Almaguer NP [address] [place] [address] Unspecified injury of head, subsequent encounter (Primary Dx); Cervicalgia Social History Tobacco Use Types Packs/Day Years [...] documented as of this encounter Results * CT THORACIC SPINE WITHOUT CONTRAST (04/03/2025 6:11 PM EDT) Anatomical Region Laterality Modality T-spine Computed Tomogra phy 04/07/2025 3:52 PM EDT Impressions 04/07/2025 3:54 PM EDT No acute osseous abnormality or significant degenerative change. Narrative 04/07/2025 3:[address] THORACIC SPINE WITHOUT CONTRAST Referring clinician's provided indication for this examination in Epic: Outside Radiology Order; neck pain TECHNIQUE: * Multidetector-row CT of the thoracic spine was performed without intravenous contrast using tailored dose modulation techniques. Images were reconstructed in the axial, coronal, and sagittal planes. COMPARISON: None FINDINGS: THORACIC SPINE: Alignment and Vertebrae: Alignment within normal limits. Vertebral bodies and posterior elements are intact. Discs and Endplates: Disc heights preserved. No evidence of fracture. Soft Tissue: No prevertebral soft tissue thickening. Soft tissues within normal limits. Other Findings: None. Procedure Note Janelle Best MD - 04/07/2025 CT THORACIC SPINE WITHOUT CONTRAST Referring clinician's provided indication for this examination in Epic:Outside Radiology Order; neck pain TECHNIQUE: * Multidetector-row CT of the thoracic spine was performed withoutintravenous contrast using tailored dose modulation techniques. Imageswere reconstructed in the axial, coronal, and sagittal planes. COMPARISON: None FINDINGS: THORACIC SPINE: Alignment and Vertebrae: Alignment within normal limits. Vertebral bodiesand posterior elements are intact. Discs and Endplates: Disc heights preserved. No evidence of fracture. Soft Tissue: No prevertebral soft tissue thickening. Soft tissues withinnormal limits. Other Findings: None. IMPRESSION: No acute osseous abnormality or significant degenerative change. Dae S Rosina RV SERVICE TECHNICIAN IMG CT XSPECIALTY ORDERABLES F inal Result * MRI BRAIN WITHOUT CONTRAST (03/28/2025 8:45 AM EDT) Anatomical Region Laterality Modality Head Magnetic Resonan ce 04/01/2025 11:2 9 AM EDT Impressions 04/01/2025 11:33 AM EDT 1. Normal noncontrast brain MRI. Narrative 04/01/2025 11:33 AM EDT MRI BRAIN WITHOUT CONTRAST Referring clinician's provided indication for this examination in [facility]: Outside Radiology Order; injury of head TECHNIQUE: MRI BRAIN WITHOUT CONTRAST Multi-sequence, multi-planar MRI of the brain was performed without intravenous contrast. COMPARISON: FINDINGS: Brain Parenchyma: Normal. No evidence of acute infarct, mass lesion, or hemorrhage. Ventricular System and Extra-Axial Spaces: Normal. No evidence of midline shift or hydrocephalus. Extracranial Structures: Expected arterial flow signal is observed at the skull base. Procedure Note Frandy Kennedy DO - 04/01/2025 MRI BRAIN WITHOUT CONTRAST Referring clinician's provided indication for this examination in [facility]:Outside Radiology Order; injury of head TECHNIQUE: MRI BRAIN WITHOUT CONTRAST Multi-sequence, multi-planar MRI of the brain was performed withoutintravenous contrast. COMPARISON: FINDINGS: Brain Parenchyma: Normal. No evidence of acute infarct, mass lesion, orhemorrhage. Ventricular System and Extra-Axial Spaces: Normal. No evidence of midlineshift or hydrocephalus. Extracranial Structures: Expected arterial flow signal is observed at theskull base. IMPRESSION: 1. Normal noncontrast brain MRI. Dae Almaguer RV SERVICE TECHNICIAN IMG MR HEAD/NECK Final Result documented in this encounter Visit Diagnoses Diagnosis Unspecified injury of head, subsequent encounter- Primary Cervicalgia Unspecified injury of head, subsequent encounter Cervicalgia documented in this encounter Care Teams Real Property Evaluator Relationship Specialty Start Date End Date Isaias House, February LITA Andrade [email or web address] PCP - General Nurse Practitioner 03/27/23 03/27/25 Ana Laura Reis PA [address] [place] [address] [place] [phone] PCP - General Physician Lumber Estimator 03/28/25 documented as of this encounter Additional Source Comments The information contained in this document represents components of the legal health record. It is not the complete legal health record.[facility]
--- OUTSIDE RECORDS SUMMARY | 2025-09-05 16:37 | XMS_ITS | Encounter Summary ---
Author Organization [facility] Address [address] [place] [phone] Care Team Providers Care Construction Services Technician Name Role Phone Stiven Kay MD Primary Care Provider [phone] [phone] Encounter Details Date Type Department Care Team (Late st Contact Info) Description 11/20/2013 Scanned Document [facility] [address], [address] [place] [address] [facility], Brandin Pike, MOLD WASHER [address] [facility] [address] [facility] [address] [place] [phone] Social History Tobacco Use Types Packs/Day Years [...] documented as of this encounter Care Teams Construction Services Technician Relationship Specialty Start Date End Date Stiven Kay MD [address] [place] [phone] PCP - General Pediatrics 11/27/15 documented as of this encounter
--- OUTSIDE RECORDS SUMMARY | 2025-09-05 16:37 | XMS_ITS | Encounter Summary ---
Author Organization [facility] Address [address] [facility] [address] [place] [address] Phone Care Team Providers Care Manager Drug Safety Name Role Phone Isaias House, February Lupe LONDON Primary Care Pr ovider Ana Laura Reis Primary Care Provider Reason for Referral * MRI/CAT Scan - Closed Specialty Diagnoses / Procedures Referred By Contac t Referred To Contact Radiology Diagnoses Palpable mass of lower back Procedures MRI Lumbar Spine CHG MRI, LUMBAR SPINE CHG MRI, LUMBAR SPINE COMBO CHG MRI, LUMBAR SPINE CONTRAST Alistair Bender MD Phone: tel: fax: mailto:[email or web address] Referral ID Status Reason Start Date Expiration Date Visits Re quested Visits Authorized [id number] Closed 08/10/2023 01/11/2024 1 1 Encounter Details Date Type Department Care Team (Late st Contact Info) Description 06/14/2023 Transcribe Orders Virtual Department [address] [place] [address] Alistair Bender MD [address] [address] [email or web address] Palpable mass of lower back (Primary Dx) [...] as of this encounter Results * MRI LUMBAR SPINE (BONE) WITH AND WITHOUT CONTRAST (08/10/2023 12:13 PM EDT) Anatomical Region Laterality Modality L-spine Magnetic Resonan ce 08/12/2023 6:28 AM EDT [...] excision. us Alistair Bender MD IMG MR XSPECIALTY Final Re sult documented in this encounter Visit Diagnoses Diagnosis Palpable mass of lower back- Primary Palpable mass of lower back documented in this encounter Care Teams Manager Drug Safety Relationship Specialty Start Date End Date Isaias House, February LITA Andrade [email or web address] PCP - General Nurse Practitioner 03/27/23 03/27/25 Ana Laura Reis PA [address] [place] [address] [place] [phone] PCP - General Physician Regional Marketing Manager 03/28/25 documented as of this encounter Additional Source Comments The information contained in this document represents components of the legal health record. It is not the complete legal health record.[facility]
--- OUTSIDE RECORDS SUMMARY | 2025-09-05 16:37 | XMS_ITS | Encounter Summary ---
Author Organization [facility] Address [address] [facility] [address] [place] [phone] Phone Care Team Providers Care Chiller Tender Name Role Phone Isaias House February Lupe LONDON Primary Care Pr ovider Ana Laura Reis Primary Care Provider Encounter Details Date Type Department Care Team (Late st Contact Info) Description 03/21/2025 Procedure Pass [facility], [address] [address] Social History Tobacco Use Types Packs/Day Years [...] on filedocumented in this encounter Care Teams Chiller Tender Relationship Specialty Start Date End Date Isaias House Farrah LITA Andrade [email or web address] PCP - General Nurse Practitioner 03/27/23 03/27/25 Ana Laura Reis PA [address] [place] [address] [place] [phone] PCP - General Physician Lawn Mower Mechanic 03/28/25 documented as of this encounter Additional Source Comments The information contained in this document represents components of the legal health record. It is not the complete legal health record.[facility]
--- OUTSIDE RECORDS SUMMARY | 2025-09-05 16:37 | XMS_ITS | Encounter Summary ---
Author Organization [facility] Address [address] [facility] [address] [place] [address] Phone Care Team Providers Care Valve Tester Name Role Phone Farrah Ruiz CAR PILOT Primary Care Pr ovider Ana Laura Reis Primary Care Provider Encounter Details Date Type Department Care Team (Late st Contact Info) Description 10/02/2023 Transcribe Orders [facility] [address] [place], [place] [id number] Farrah Ruiz, LITA [address] [place] [address] [email or web address] Social History Tobacco Use Types Packs/Day Years [...] on filedocumented in this encounter Care Teams Valve Tester Relationship Specialty Start Date End Date Isaias House, February LITA Andrade [email or web address] PCP - General Nurse Practitioner 03/27/23 03/27/25 Ana Laura Reis PA [address] [place] [address] [place] [phone] PCP - General Physician Processor Inspector 03/28/25 documented as of this encounter Additional Source Comments The information contained in this document represents components of the legal health record. It is not the complete legal health record.[facility]
--- OUTSIDE RECORDS SUMMARY | 2025-09-05 16:37 | XMS_ITS | Encounter Summary ---
Author Organization [facility] Address [address] [facility] [address] [place] [phone] Phone Care Team Providers Care Motion Picture Projectionist Apprentice Name Role Phone Isaias House, February Lupe LONDON Primary Care Pr ovider Ana Laura Reis Primary Care Provider Encounter Details Date Type Department Care Team (Late st Contact Info) Description 06/14/2023 Procedure Pass [address] [place] [address] Social History Tobacco Use Types Packs/Day Years [...] on filedocumented in this encounter Care Teams Motion Picture Projectionist Apprentice Relationship Specialty Start Date End Date Isaias House Farrah LITA Andrade [email or web address] PCP - General Nurse Practitioner 03/27/23 03/27/25 Ana Laura Reis PA [address] [place] [address] [place] [phone] PCP - General Physician Supervisor [employer] 03/28/25 documented as of this encounter Additional Source Comments The information contained in this document represents components of the legal health record. It is not the complete legal health record.[facility]
--- OUTSIDE RECORDS SUMMARY | 2025-09-05 16:37 | XMS_ITS | Encounter Summary ---
Author Organization [facility] Address [address] [place] [phone] Care Team Providers Care Substation Design Draftsperson Name Role Phone Stiven Kay MD Primary Care Provider [phone] Encounter Details Date Type Department Care Team (Late st Contact Info) Description 10/28/2016 Abstract [facility] [address], [address] [place], [place] [address] Arlette Barclay APRN [address] [facility] [place] [address] Social History Tobacco Use Types Packs/Day [...] 1:51 PM EST) Hemoglobin A1C, POC 7.6 [facility] Blood specimen (specimen) 10/24/2016 1:51 PM EST us Historical Provider POINT OF CARE TEST ORDERABLE S Final Result [facility] [place], [place], [facility] documented in this encounter Visit Diagnoses Not on filedocumented in this encounter Additional Health Concerns Infection Onset Date Last Indicated Resolved Time R/O COVID-19 07/22/2021 07/22/2021 07/22/2021 8:14 PM EDT R/O Norovirus 07/23/2021 07/23/2021 07/24/2021 11: 44 AM EDT documented as of this encounter Care Teams Substation Design Draftsperson Relationship Specialty Start Date End Date Stiven Kay MD [address] [place] [phone] PCP - General Pediatrics 11/27/15 documented as of this encounter
--- OUTSIDE RECORDS SUMMARY | 2025-09-05 16:37 | XMS_ITS | Encounter Summary ---
Author Organization [facility] Address [address] [place] [phone] Care Team Providers Care Steel Wool Machine Operator Name Role Phone Stiven Kay MD Primary Care Provider [phone] Encounter Details Date Type Department Care Team ([facility] st Contact Info) Description 10/02/2019 Scanned Document [facility] [place] [address], [address] [place] [address] [facility], Brandin [place], SUPERVISOR COMPOSING ROOM [address] [facility] [address] [facility] [address] [place] [phone] Social History Tobacco Use Types Packs/Day Years [...] documented as of this encounter Care Teams Steel Wool Machine Operator Relationship Specialty Start Date End Date Stiven Kay MD [address] [place] [phone] PCP - General Pediatrics 11/27/15 documented as of this encounter
--- OUTSIDE RECORDS SUMMARY | 2025-09-05 16:37 | XMS_ITS | Encounter Summary ---
Author Organization [facility] Address [address] [employer] [facility] [address] [place] [phone] Phone Care Team Providers Care Associate Professor Of Kinesiology Name Role Phone Isaias House February Lupe LONDON Primary Care Pr ovider Ana Laura Reis Primary Care Provider Encounter Details Date Type Department Care Team (Late st Contact Info) Description 03/24/2025 Procedure Pass [facility], [facility] - [address] [address] Social History Tobacco Use Types Packs/Day Years [...] on filedocumented in this encounter Care Teams Associate Professor Of Kinesiology Relationship Specialty Start Date End Date Isaias House Farrah LITA Andrade [email or web address] PCP - General Nurse Practitioner 03/27/23 03/27/25 Ana Laura Reis PA [address] [place] [address] [place] [phone] PCP - General Physician Victim Witness Administrator 03/28/25 documented as of this encounter Additional Source Comments The information contained in this document represents components of the legal health record. It is not the complete legal health record.[facility]
--- OUTSIDE RECORDS SUMMARY | 2025-09-05 16:37 | XMS_ITS ---
Author Name [facility] Organization Unknown Results Test Name/Text Value Interpretation Date Range Source Est. average glucose Bld gHb Est-mCnc 157.0 mg/dL 08/27/2025 [facility] Hgb A1c MFr Bld 7.1 % Above high normal 08/27/2025 - 5.7 [facility] Chloride SerPl-sCnc 101.0 mmol/L 08/27/2025 98 - 1 07 [facility] Anion Gap Bld-sCnc 11.0 08/27/2025 7 - 17 [facility] Glucose SerPl-mCnc 185.0 mg/dL Above high normal 08/27/2025 65 - 99 [facility] Sodium SerPl-sCnc 134.0 mmol/L Below low normal 08/27/2025 1 36 - 145 [facility] BUN/Creat SerPl 9.0 Ratio Below low normal 08/27/2025 10 - 2 5 [facility] BUN SerPl-mCnc 7.0 mg/dL Below low normal 08/27/2025 8 - 21 [facility] GFR/BSA.pred SerPlBld UBS-REW-HjCSwa >90.0 08/27/2025 59 - [facility] Calcium SerPl-mCnc 9.3 mg/dL 08/27/2025 8.7 - 10.5 [facility] Creat SerPl-mCnc 0.81 mg/dL 08/27/2025 0.4 - 1.1 H [facility] Potassium SerPl-sCnc 4.4 mmol/L 08/27/2025 3.4 - 5 .3 [facility] CO2 SerPl-sCnc 22.0 mmol/L 08/27/2025 22 - 33 HH CCT Basophils num Bld Auto 0.05 Thou/uL 08/27/2025 0 - 0.2 [facility] Lymphocytes num Bld Auto 2.59 Thou/uL 08/27/2025 1.5 - 4.5 [facility] Hct VFr Bld Auto 42.4 % 08/27/2025 35 - 47 HH CCT Lymphocytes/leuk NFr Bld Auto 36.4 % 08/27/2025 [facility] Monocytes/leuk NFr Bld Auto 6.2 % 08/27/2025 [facility] MCHC RBC Auto-mCnc 34.0 g/dL 08/27/2025 30 - 36 [facility] Neutrophils num Bld Auto 3.95 Thou/uL 08/27/2025 2 - 7.5 [facility] Basophils/leuk NFr Bld Auto 0.7 % 08/27/2025 [facility] Imm Granulocytes/leuk NFr Bld Auto 0.4 % 08/27/2025 [facility] Eosinophil num Bld Auto 0.05 Thou/uL 08/27/2025 0 - 0.7 [facility] RDW RBC Auto-Rto 11.7 % 08/27/2025 11.5 - 14.5 [facility] MCV RBC Auto 89.0 fL 08/27/2025 80 - 100 [facility] Monocytes num Bld Auto 0.44 Thou/uL 08/27/2025 0.2 - 1.5 [facility] RBC num Bld Auto 4.77 Mil/uL 08/27/2025 4 - 5.4 [facility] PMV Bld Auto 8.9 fL 08/27/2025 7.5 - 12.5 [facility] Eosinophil/leuk NFr Bld Auto 0.7 % 08/27/2025 [facility] MCH RBC Qn Auto 30.2 pg 08/27/2025 26 - [address] Imm Granulocytes num Bld Auto 0.03 Thou/uL 08/27/2025 0 - 0.1 [facility] Hgb Bld-mCnc 14.4 g/dL 08/27/2025 11.7 - 15.7 HHCC T WBC num Bld Auto 7.1 Thou/uL 08/27/2025 4 - 11 [facility] Neutrophils/leuk NFr Bld Auto 55.6 % 08/27/2025 [facility] Platelet num Bld Auto 331.0 Thou/uL 08/27/2025 150 - 450 [facility] History of Medication Use Medication Directions Dispensed Refills Start Date End Date Status ondansetron (ZOFRAN-ODT) 4 MG disintegrating tablet Take 1 tablet (4 mg total) by mouth 3 times daily (every 8 hours) as needed. 5 active semaglutide (Ozempic, 1 MG/DOSE,) (1 mg/dose pen) prefilled pen injection Inject 0.5 mg under the skin once a week. 5 active ibuprofen (MOTRIN) 600 MG tablet Take 1 tablet (600 mg total) by mouth every 6 (six) hours. 5 active methocarbamol (ROBAXIN) 750 MG tablet Take 2 tablets (1,500 mg total) by mouth 3 (three) times a day. 5 active Acyclovir 400mg Tablet 5 active Aurovela 1.04/11 21-Day Tablet 5 active Fiasp 100unit/mL Solution for Injection 5 active Meloxicam 15mg Tablet 5 active Pantoprazole Sodium 40mg Delayed-Release Tablet 5 active Vitamin D 5 active famotidine (PEPCID) 40 MG tablet Take 1 tablet (40 mg total) by mouth 2 (two) times a day. 5 active Latisse (drops, with applicator) Once nightly, evenly apply one drop of solution on disposable sterile applicator along the skin of the upper eyelid and base of eyelashes. Repeat steps on opposite eyelid using a new, sterile applicator. Apply daily for 16 weeks. Avoid applying medication in the eye, blot excess so 5 completed tretinoin (cream) Apply pea-sized amount to face nightly, as tolerated. 5 completed triamcinolone acetonide (cream) Apply to affected areas on the body twice daily for up to two weeks/month. Do not apply to face, neck, skin folds, groin. 5 completed fluconazole (diFLUcan) 150 MG tablet 1 active insulin aspart (insulin aspart) 100 UNIT/ML injection use up to 250 units subcutaneously daily 1 active insulin aspart (insulin aspart) 100 UNIT/ML injection use up to 250 units subcutaneously daily 1 active ondansetron (ZOFRAN) 4 MG tablet TAKE 1 TABLET BY MOUTH EVERY DAY FOR 7 DAYS NEEDED FOR NAUSEA 02/25/20 25 active drospirenone-ethinyl estradiol (MADDI) 3-0.02 MG per tablet TAKE 1 TABLET BY MOUTH AT THE SAME TIME EVERY DAY active ondansetron (ZOFRAN-ODT) 4 MG disintegrating tablet 02/25/20 25 active metoCLOPRAMIDE (REGLAN) 10 MG tablet TAKE 1 TABLET BY MOUTH FOUR TIMES DAILY FOR 10 DAYS 02/25/20 25 active ciprofloxacin (CIPRO) 500 MG tablet TAKE 1 TABLET BY MOUTH EVERY 12 HOURS FOR 7 DAYS 02/25/20 25 active proCHLORPERAZINE (COMPAZINE) 10 MG tablet Take 10 mg by mouth 3 (three) times a day. for 7 days 02/25/20 25 active bimatoprost (LUMIGAN) 0.03 % ophthalmic drops INSTILL 1 DROP TO UPPER EYELID IN THE EVENING. DO NOT APPLY TO LOWER EYELID 02/25/20 25 active acetone, urine, test (Ketostix) strip Use to test ketones every 2 hours daily if BG is >300mg/dL 02/25/20 25 active acyclovir (ZOVIRAX) 400 mg tablet Take 400 mg by mouth. active acyclovir 400 mg tablet Take 1 tablet twice a day by oral route. Take 1 tablet twice a day by oral route. completed Aurovela 1.5/30 (21) (tablet) 1.5-30 mg-mcg completed Baqsimi 3 mg/actuation nasal spray USE 1 SPRAY IN LEFT NOSTRIL IN THE EVENT OF SEVERE LOW BLOOD SUGAR. REPEAT IN 15 MINS IF NEEDED USE 1 SPRAY IN LEFT NOSTRIL IN THE EVENT OF SEVERE LOW BLOOD SUGAR. REPEAT IN 15 MINS IF NEEDED completed buPROPion (WELLBUTRIN XL) 300 MG 24 hr tablet Take 1 tablet (300 mg total) by mouth every morning. Swallow whole; do not crush, chew, or divide. active bupropion HCl (Tablet, Extended Release 24 hr) 300 mg completed bupropion HCl XL 150 mg 24 hr tablet, extended release TAKE 1 TABLET BY MOUTH EVERY DAY TAKE 1 TABLET BY MOUTH EVERY DAY completed bupropion HCl XL 300 mg 24 hr tablet, extended release TAKE 1 TABLET BY MOUTH EVERY DAY IN THE MORNING TAKE 1 TABLET BY MOUTH EVERY DAY IN THE MORNING completed cholecalciferol (CHOLECALCIFEROL) 25 MCG (1000 UT) tablet Take 1 tablet (1,000 Units total) by mouth nightly. active cromolyn (GASTROCROM) 100 MG/5ML solution Take 5 mL (100 mg total) by mouth 4 (four) times a day before meals and nightly. active cyclobenzaprine (tablet) 5 mg completed dextroamphetamine-amp hetamine (tablet) 10 mg complet ed Diflucan 150 mg tablet Take one tablet by mouth x 1 as needed for yeast infection Take one tablet by mouth x 1 as needed for yeast infection complete d escitalopram (LEXAPRO) 20 MG tablet Take 1 tablet (20 mg total) by mouth every morning. active escitalopram 20 mg tablet TAKE 1 TABLET BY MOUTH EVERY DAY TAKE 1 TABLET BY MOUTH EVERY DAY completed escitalopram oxalate (tablet) 20 mg completed fexofenadine (DREW) 180 MG tablet Take 1 tablet (180 mg total) by mouth 2 times a day. Administer with water only; do not administer with fruit juices. active Fiasp U-100 Insulin (solution) 100 unit/mL completed Fiasp U-100 Insulin 100 unit/mL subcutaneous solution MAX DAILY DOSE 100 UNITS. E10.65. MAX DAILY DOSE 100 UNITS. E10.65. completed fluticasone (FloNASE) 50 mcg/spray nasal spray 1 spray into each nostril every morning. active fluticasone propionate 50 mcg/actuation nasal spray,suspension fluticasone propionate 50 mcg/actuation nasal spray,suspension completed gabapentin (tablet) 600 mg comp leted Glucagon Emergency Kit 1 mg solution for injection Glucagon Emergency Kit 1 mg solution for injection completed Lexapro 5 mg tablet Take 1 tablet every day by oral route. Take 1 tablet every day by oral route. completed methocarbamol (tablet) 500 mg completed Omnipod Dash Pods (Gen 4) subcutaneous cartridge USE WITH OMNIPOD. CHANGE EVERY 2 DAYS. 50 PODS= 90 DAY SUPPLY. E10.65. USE WITH OMNIPOD. CHANGE EVERY 2 DAYS. 50 PODS= 90 DAY SUPPLY. E10.65. complete d PANTOprazole (PROTONIX) 40 MG EC tablet Take 1 tablet (40 mg total) by mouth every morning before breakfast. active pantoprazole (tablet, delayed release (enteric coated)) 40 mg complet ed pantoprazole 40 mg tablet,delayed release TAKE 1 TABLET BY MOUTH EVERY DAY TAKE 1 TABLET BY MOUTH EVERY DAY completed polyethylene glycol 17 g packet Take 1 packet (17 g total) by mouth nightly. active Quercetin 500 MG Cap Take by mouth nightly. active Allergies Allergen Reaction Severity Comment Documented Date Source Statu s .NO KNOWN DRUG ALLERGIES ENS_POD CRCT Problems Problem Status Onset Date Problem Type Date of Resolution Source Acne vulgaris active 2016-12-20 ProblemAct [facility] T Marijuana use active EncounterDiagnosisAct [facility] Type 1 diabetes mellitus without complications active 2025-08-27 ProblemAct [facility] GERD (gastroesophageal reflux disease) active 2025-08-27 ProblemAct [facility] Anti-TPO antibodies present active 2025-08-05 ProblemAct [facility] Depression with anxiety active 2025-08-27 ProblemAct [facility] YAS (obstructive sleep apnea) active EncounterDiagnosisAct [facility] Abnormal finding on thyroid function test active 2025-08-05 ProblemAct [facility] Slade-Danlos disease active 2025-08-05 ProblemAct [facility] Carpal tunnel syndrome, bilateral active 2020-05-29 ProblemAct [facility] Anxiety active 2016-09-23 ProblemAct [facility] Class 1 obesity active 2025-08-05 ProblemAct [facility] Peggy thyroiditis active 2025-08-27 ProblemAct [facility] Admits to alcohol consumption active 2018-11-29 ProblemAct [facility] Bladder pain active 2025-08-05 ProblemAct [facility] Depression active 2013-12-26 ProblemAct [facility] Pain in right foot active 2025-04-08 EncounterDiagnosisAc t ENS_PODCRCT Plantar fasciitis active 2025-04-08 EncounterDiagnosisAct ENS_PODCRCT Achilles tendinitis, left leg active 2025-04-08 EncounterDiagnosisAct ENS_PO DCRCT Equinus - Short Achilles tendon, LEFT active 2025-04-08 EncounterDiagnosisAct ENS_PO DCRCT Equinus - Short Achilles tendon, RIGHT active 2025-04-08 EncounterDiagnosisAct ENS_PO DCRCT Achilles tendinitis, right leg active 2025-04-08 EncounterDiagnosisAct ENS_PO DCRCT Pain in left foot active 2025-04-08 EncounterDiagnosisAct ENS_PODCRCT Depressive disorder active ProblemAct [facility] Venereal disease screening active 2019-07-09 ProblemAct [facility] Polycystic ovaries active ProblemAct [facility] Herpes simplex type 1 infection active 2019-07-14 ProblemAct [facility] Type 1 diabetes mellitus active ProblemAct [facility] Immunizations Vaccine Date Source Lot Number Status Rabies Diploid Cell (IMOVAX) 04/27/2022 [facility] [id number] completed Rabies Diploid Cell (IMOVAX) 04/27/2022 [facility] [id number] completed Rabies Diploid Cell (IMOVAX) 04/20/2022 [facility] [id number] A completed Rabies Diploid Cell (IMOVAX) 04/20/2022 [facility] [id number] completed Rabies Diploid Cell (IMOVAX) 04/16/2022 [facility] [id number] A completed Rabies Diploid Cell (IMOVAX) 04/16/2022 [facility] [id number] A completed Rabies Diploid Cell (IMOVAX) 04/13/2022 [facility] [id number] A completed Rabies Diploid Cell (IMOVAX) 04/13/2022 [facility] [id number] A completed Rabies Immune Globulin 04/13/2022 [facility] [id number] co mpleted Rabies Immune Globulin 04/13/2022 [facility] [id number] co mpleted Influenza Whole 08/04/2021 [facility] UNK completed Influenza Whole 08/04/2021 [facility] UNK completed Influenza, Quadrivalent (FLU ARIX, AFLURIA, FLULAVAL, FLUZONE) Preservative Free IM 08/04/2021 [facility] [id number] completed Influenza, Quadrivalent (FLU ARIX, AFLURIA, FLULAVAL, FLUZONE) Preservative Free IM 08/04/2021 [facility] [id number] completed Tdap 08/04/2021 [facility] [id number] completed Tdap 08/04/2021 [facility] [id number] completed Covid-19 mRNA Primary Series Vaccine - Moderna 0.5 mL Full Dose 04/02/2021 [facility] [id number] completed Covid-19 mRNA Primary Series Vaccine - Moderna 0.5 mL Full Dose 04/02/2021 [facility] [id number] completed Covid-19 MRNA Primary Series Vaccine - Pfizer 12+ Da-Sucrose 04/02/2021 [facility] [id number] completed Covid-19 MRNA Primary Series Vaccine - Pfizer 12+ Da-Sucrose 04/02/2021 [facility] [id number] completed Covid-19 mRNA Primary Series Vaccine - Moderna 0.5 mL Full Dose 03/04/2021 [facility] [id number] completed Covid-19 mRNA Primary Series Vaccine - Moderna 0.5 mL Full Dose 03/04/2021 [facility] [id number] completed Covid-19 MRNA Primary Series Vaccine - Pfizer 12+ Da-Sucrose 03/04/2021 [facility] [id number] completed Covid-19 MRNA Primary Series Vaccine - Pfizer 12+ Da-Sucrose 03/04/2021 [facility] [id number] completed Influenza, Quadrivalent (FLU ARIX, AFLURIA, FLULAVAL, FLUZONE) Preservative Free IM 11/21/2018 [facility] [id number] completed Influenza, Quadrivalent (FLU ARIX, AFLURIA, FLULAVAL, FLUZONE) Preservative Free IM 11/21/2018 [facility] [id number] completed Influenza Whole 11/24/2017 [facility] UNK completed Influenza Whole 11/24/2017 [facility] UNK completed Hep A, Unspecified 05/03/2017 [facility] comple mahamed Hep A, Unspecified 05/03/2017 [facility] comple mahamed Hep A, Unspecified 09/23/2016 [facility] comple mahamed Hep A, Unspecified 09/23/2016 [facility] comple mahamed Influenza Whole 09/23/2016 [facility] UNK completed Influenza Whole 09/23/2016 [facility] UN[facility] completed Meningococcal, Unspecified 09/23/2016 [facility] completed Meningococcal, Unspecified 09/23/2016 [facility] completed DTaP, Unspecified 06/28/2001 [facility] complet ed DTaP, Unspecified 06/28/2001 [facility] complet ed Hep B, Unspecified 06/28/2001 [facility] comple mahamed Hep B, Unspecified 06/28/2001 [facility] comple mahamed Hib 05/02/2001 [facility] completed Hib 05/02/2001 [facility] completed MMR 05/02/2001 [facility] completed MMR 05/02/2001 [facility] completed Pneumococcal Conjugate 7-Valent 05/02/2001 [facility] completed Pneumococcal Conjugate 7-Valent 05/02/2001 [facility] completed Hep B, Unspecified 12/12/2000 [facility] comple mahamed Hep B, Unspecified 12/12/2000 [facility] comple mahamed Pneumococcal Conjugate 7-Valent 12/12/2000 [facility] completed Pneumococcal Conjugate 7-Valent 12/12/2000 [facility] completed IPV 08/21/2000 [facility] completed IPV 08/21/2000 [facility] completed Pneumococcal Conjugate 7-Valent 08/21/2000 [facility] completed Pneumococcal Conjugate 7-Valent 08/21/2000 [facility] completed DTaP, Unspecified 05/11/2000 [facility] complet ed DTaP, Unspecified 05/11/2000 [facility] complet ed Hep B, Unspecified 05/11/2000 [facility] comple mahamed Hep B, Unspecified 05/11/2000 [facility] comple mahamed Hib 05/11/2000 [facility] completed Hib 05/11/2000 [facility] completed DTaP, Unspecified 02/15/2000 [facility] complet ed DTaP, Unspecified 02/15/2000 [facility] complet ed Hib 02/15/2000 [facility] completed Hib 02/15/2000 [facility] completed IPV 02/15/2000 [facility] completed IPV 02/15/2000 [facility] completed DTaP, Unspecified 1999 [facility] complet ed DTaP, Unspecified 1999 [facility] complet ed Hib 1999 [facility] completed Hib 1999 [facility] completed IPV 1999 [facility] completed IPV 1999 [facility] completed Encounters Encounter Type Encounter Reason Primary Diagnosis Location Date Ambulatory Encounter for preprocedural cardiovascular examination Encounter for preprocedural cardiovascular examination [email or web address] 08/27/2025 Ambulatory [facility] 08/12/2025 Ambulatory Difficulty Swallowing Difficulty Swallowi ng [email or web address] 08/05/2025 Emergency Headache, unspecified Headache, unspecifi ed [email or web address] 03/18/2025 Ambulatory Unspecified abdomina l pain Unspecified abdominal pain [email or web address] 03/13/2025 Ambulatory Constipation Constipation [email or web address] 02/24/2025 Ambulatory [facility]24 Ambulatory [facility] 02/17/2025 Ambulatory Hypermobility syndrome Hypermobility syndrome [place] [facility] 12/04/2024 Ambulatory [facility] 01/25/2023 Ambulatory [facility] 12/16/2021 Ambulatory [facility] 09/01/2021 Ambulatory [facility] 09/01/2021 Ambulatory [email or web address] 09/01/2021 Ambulatory Nausea with vomi ting, unspecified [email or web address] 09/01/2021 Ambulatory Nausea with vomi ting, unspecified [email or web address] 08/23/2021 Inpatient Persistent vomiting [facility] 07/22/2021 Care Team Organization Name Specialty Phone Email Start Date End Da te [facility] 08/22/2025 [facility] No provided Primary Care 08/12/2025 [facility] directory,Not Primary Care 08/08/2025 [facility] Not directory Primary Care 08/08/2025 [place] [facility] Heat Reader 08/05/2025 [place] [facility] Ana Laura Arzate Primary Care 08/05/2025 [facility] [employer] 05/08/2025 [facility] Car Unloader Helper (ECMP) TASHA Primary Care 04/21/2025 [place] [facility] PROVIDER SYSTEM Primary Care 03/18/2025 [facility] NO PCP Primary Care 03/12/2025 [facility] 03/05/2025 [facility] 03/05/2025 [place] [facility] 02/27/2025 [facility] 02/20/2025 [facility] 02/14/2025 [place] [facility] 02/13/2025 [facility] 02/13/2025 [place] [facility] STIVEN KAY, Primary Care 01/22/2025 [place] [facility] 10/01/2024 Office of the Vocational Training Director (OSC) 09/27/2024 [facility] 09/26/2024 [facility] 09/14/2023 025 [facility] 08/15/2023 [facility] 08/04/2023 024 [facility] 12/24/2021 [facility] 12/16/202112/16 [facility] Stiven Kay Primary Care 09/01/2021 [facility] STIVEN KAY Primary Care 08/23/202108/13 [facility] STIVEN KAY Primary Care 07/22/202107/22
== END 2025-09-05 15:23 | disposition home or self-care (01) ==
LOC: HO.PMC 14:56
PROVIDERS: PCP Family Medicine; Visit Provider Registered Nurse Emergency
DX: M79.18 Myalgia, other site (principal); M47.816 Spondylosis without myelopathy or radiculopathy, lumbar region; E11.42 Type 2 diabetes mellitus with diabetic polyneuropathy; M54.2 Cervicalgia; G44.86 Cervicogenic headache; M54.81 Occipital neuralgia
CPT/HCPCS: 99213

== ENCOUNTER 2025-09-08 10:46 | Outpatient (AMB) | payer BC, SELFPAY ==
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
[2025-09-08 10:49] VITALS: BP 100/70; PULSE 104; RESP 16; O2SAT 99; BMI 28.5
--- OUTSIDE RECORDS SUMMARY | 2025-09-08 13:14 | XMS_ITS | Encounter Summary ---
Author Organization [facility] Address [address] [place] [address] Care Team Providers Care Shield Operator Name Role Phone Stiven Kay MD Primary Care Provider +[phone] Encounter Details Date Type Department Care Team (Late st Contact Info) Description 06/29/2016 Scanned Document [place] [address] Gaby Velez MD PhD [address] [place] [phone] Social History Tobacco Use Types Packs/Day [...] documented as of this encounter Care Teams Shield Operator Relationship Specialty Start Date End Date Stiven Kay MD [address] [place] [phone] PCP - General Pediatrics 11/27/15 documented as of this encounter
--- OUTSIDE RECORDS SUMMARY | 2025-09-08 13:14 | XMS_ITS | Encounter Summary ---
Author Organization [facility] Address [address] [place] [phone] Care Team Providers Care Chemist Proteins Name Role Phone Stiven Kay MD Primary Care Provider +[phone] Encounter Details Date Type Department Care Team (Late st Contact Info) Description 10/28/2016 Abstract [facility] [address] [place], [place] [address] Arlette Barclay APRN 1 [facility] [address] Social History Tobacco Use Types Packs/Day [...] 1:51 PM EST) Hemoglobin A1C, POC 7.6 [facility] Blood specimen (specimen) 10/24/2016 1:51 PM EST us Historical Provider POINT OF CARE TEST ORDERABLE S Final Result [facility] [place], [place], [facility] documented in this encounter Visit Diagnoses Not on filedocumented in this encounter Additional Health Concerns Infection Onset Date Last Indicated Resolved Time R/O COVID-19 07/22/2021 07/22/2021 07/22/2021 8:14 PM EDT R/O Norovirus 07/23/2021 07/23/2021 07/24/2021 11: 44 AM EDT documented as of this encounter Care Teams Chemist Proteins Relationship Specialty Start Date End Date Stiven Kay MD [address] [place] [phone] PCP - General Pediatrics 11/27/15 documented as of this encounter
--- OUTSIDE RECORDS SUMMARY | 2025-09-08 13:14 | XMS_ITS | Clinical Summary ---
Author Organization [facility] Address [address] [place] [address] Care Team Providers Care Drying Machine Back Tender Name Role Phone Ana Laura Arzate PA-C [...] noted. She follows up with endocrinology at [facility]. Will check hemoglobin A1c today. Presently on a medication regimen of insulin pump and Ozempic Patient informed of the need of going on a clear liquid diet 24 hours prior to the surgery with n.p.o. after midnight. Insulin pump recommendations to come from the water project manager office GERD (gastroesophageal reflux disease) Assessment & [...] associated with medical diagnoses: Yobany, Dr. Woodard: [facility] Encounters Date Type Department Care Team Description 09/05/2025 Scanned Document [facility] [place] [address] [place] [address] Jaime Hawthorne MD 09/05/2025 Scanned Document [facility] [address] [place] [phone] Jaime Hawthorne MD 08/28/2025 Scanned Document [facility] Pre-Admission Testing Center in [address] [place] [address] Ana Laura Birch PA-C 08/27/2025 11:00 AM EDT Pre-Admission Testing [facility] Pre-Admission Testing Center 85 [facility] [address] [place] [address] Martin Wrothy MD Preop cardiovascular exam (Primary Dx); Type 1 diabetes mellitus without complications (HCC); Gastroesophageal reflux disease without esophagitis; Depression with anxiety; Peggy thyroiditis; Marijuana use; YAS (obstructive sleep apnea) 08/26/2025 Travel 08/14/2025 CC Surg Order [facility] [address] [place] [address] Jaime Hawthorne MD 08/05/2025 12:45 PM EDT Office Visit [facility] [address] [facility], [place] [address] Jaime Hawthorne MD Deviated nasal septum (Primary Dx); Hypertrophy of nasal turbinates; Obstructive sleep apnea (adult) (pediatric); Non-seasonal allergic rhinitis due to pollen 07/28/2025 Refill [facility] [address] [facility] [address] [place] [phone] Ally Gallardo APRN Gastroesophageal reflux disease, unspecified [...] Info) Description 09/10/2025 8:30 AM EDT Appointment [facility] [address] [place] [address] Jaime Hawthorne MD [address] [place] [address] 09/16/2025 10:00 AM EST Office Visit [facility] [place] [address] [facility], [place] [address] Jaime Hawthorne MD [address] [place] [address] Health Maintenance Due Date Last Done Comments [...] 11/21/2018, Additional history exists COVID-19 Vaccine ( - 2024-2 6 season) 2025 12/04/2021, 04/02/2021, [...] EDT Preop cardiovascular exam THINPREP PAP TEST (DIGITAL ACCOUNT MANAGER) WITH HPV REFLEX Routine 01/25/2023 12:00 AM EDT from Last 3 Months or Most Recently Relevant to Health Maintenance Results * ECG 12 lead (08/27/2025 11:07 AM EDT) Ventricular rate 91 BPM EKG [facility] Atrial rate 91 BPM EKG [facility] P-R interval 144 ms EKG [facility] QRS duration 92 ms EKG [facility] Q-T interval 360 ms EKG [facility] QTC calculation (Bazett) 443 ms EKG [facility] P axis 39 degrees EKG [facility] R axis 70 degrees EKG [facility] T axis 63 degrees EKG [facility] 08/27/2025 11:0 7 AM EDT Narrative EKG [facility] - 08/27/2025 11:45 AM EDT Normal sinus rhythm Early Transition Borderline ECG No previous ECGs available Confirmed by MD Hurley John ([id number]) on 08/27/2025 11:45:35 AM Procedure Note Alpesh Hurley MD - 08/27/2025 Normal sinus rhythm Early Transition Borderline ECG No previous ECGs available Confirmed by MD Hurley John ([id number]) on 08/27/2025 11:45:35 AM Martin Worthy MD ECG ORDERABLES Final Result Performing Organization Address City/[facility]/ZIP Co de Phone Number EKG [facility] * (ABNORMAL) Hemoglobin A1C with Estimated Average Glucose (08/27/2025 10:53 AM EDT) Hemoglobin A1C 7.1(H) <5.7 % 08/27/2025 3:33 PM EDT [facility] Comment: A1c% Interpretation 5.7 - 6.0 Increase risk of diabetes 6.1 - 6.4 Higher risk of diabetes > or = 6.5 Consistent with diabetes Diabetes Care, 33(Supp 1):S1-S61, 2010 Estimated Average Glucose 157 mg/dL 08/27/2025 3:33 PM EDT [facility] Blood Blood specimen / Unknown 08/27/2025 10:53 AM EDT 08/27/2025 2:54 PM EDT Martin Worthy MD LAB BLOOD ORDERABLES Final Re sult Performing Organization Address [facility]/ZIP Co de Phone Number [address] [address], [address] [address] * Complete Blood Count, with Differential (08/27/2025 10:53 AM EDT) White Blood Cell Count 7.1 4.0 - 11.0 Thou/uL 08/27/2025 3:08 PM EDT [facility] Platelet Count 331 150 - 450 Thou/uL 08/27/2025 3:08 PM EDT [facility] Hemoglobin 14.4 11.7 - 15.7 g/dL 08/27/2025 3:08 PM [facility] Hematocrit 42.4 35.0 - 47.0 % 08/27/2025 3:08 PM [facility] Red Blood Cell Count 4.77 4.00 - 5.40 Mil/uL 08/27/2025 3:08 PM [facility] MCV 89 80 - 100 fL 08/27/2025 3:08 PM [facility] MCH 30.2 26.0 - 34.0 pg 08/27/2025 3:08 PM [facility] MCHC 34.0 30.0 - 36.0 g/dL 08/27/2025 3:08 PM [facility] RDW 11.7 11.5 - 14.5 % 08/27/2025 3:08 PM [facility] MPV 8.9 7.5 - 12.5 fL 08/27/2025 3:08 PM [facility] Neutrophils Auto 55.6 % 08/27/20 3:08 PM [facility] Immature Granulocytes 0.4 % 08/27/2025 3:08 PM [facility] Lymphocytes Auto 36.4 % 08/27/20 3:08 PM [facility] Monocytes Auto 6.2 % 08/27/2025 3:08 PM [facility] Eosinophils Auto 0.7 % 08/27/20 3:08 PM [facility] Basophils Auto 0.7 % 08/27/2025 3:08 PM [facility] Abs Neutrophils Auto 3.95 2.00 - 7.50 Thou/uL 08/27/2025 3:08 PM [facility] Abs Immature Granulocytes 0.03 0.00 - 0.10 Thou/uL 08/27/2025 3:08 PM [facility] Abs Lymphocytes Auto 2.59 1.50 - 4.50 Thou/uL 08/27/2025 3:08 PM [facility] Abs Monocytes Auto 0.44 0.20 - 1.50 Thou/uL 08/27/2025 3:08 PM [facility] Abs Eosinophils Auto 0.05 0.00 - 0.70 Thou/uL [facility] Basophils Auto 0.05 0.00 - 0.20 Thou/uL 08/27/2025 3:08 PM [facility] Blood Blood specimen / Unknown 08/27/2025 10:53 AM EDT 08/27/2025 2:54 PM EDT Martin Worthy MD LAB BLOOD ORDERABLES Final Re sult [address] [address], [address] [address] * (ABNORMAL) Basic Metabolic Panel (08/27/2025 10:53 AM EDT) Glucose 185(H) 65 - 99 mg/dL 08/27/2025 3:33 PM T [facility] Comment:Fasting: <100 mg/dL, Non-Fasting: <200 mg/dL (ADA 2004) Blood Urea Nitrogen (BUN) 7(L) 8 - 21 mg/dL 08/27/2025 3:33 PM [facility] Creatinine 0.81 0.40 - 1.10 mg/dL 08/27/2025 3:33 PM [facility] eGFR >90 >59 08/27/2025 3:33 PM [facility] Comment:CKD-EPI (2020) in mL /min/1.73 sq meters. Sodium 134(L) 136 - 145 mmol/L 08/27/2025 3:33 PM [facility] Potassium 4.4 3.4 - 5.3 mmol/L 08/27/2025 3:33 PM [facility] Chloride 101 98 - 107 mmol/L 08/27/2025 3:33 PM [facility] CO2 22 22 - 33 mmol/L 08/27/2025 3:33 PM [facility] Anion Gap 11 7 - 17 08/27/2025 3:33 PM [facility] Calcium 9.3 8.7 - 10.5 mg/dL 08/27/2025 3:33 PM [facility] BUN/Creatinine Ratio 9(L) 10.0 - 25.0 Ratio 08/27/2025 3:33 PM [facility] Blood Blood specimen / Unknown 08/27/2025 10:53 AM EDT 08/27/2025 2:54 PM EDT Martin Worthy MD LAB BLOOD ORDERABLES Final Re sult Performing Organization Address City/[facility]/ZIP Co de Phone Number [address] [address], [address] [address] * ThinPrep Pap Test (Plodder Operator) with HPV Reflex (01/25/2023 12:00 AM EDT) [...] has been evaluated with computer assisted technology. Integrative Medicine Physician: [facility] Comment: DCR, CT(ASCP) CT screening location: [place] [address] Comment [facility] Comment: EXPLANATORY NOTE: [...] [facility] - 01/27/2023 9:08 AM EDT [id number] NG Ivan Richards NP LAB AMB PATH/CYTO ORDERABLES Final Result Performing Organization Address [facility]/ZIP Co de Phone Number [facility] [address] [place] [address] 3rd Floor, [address] [place] [phone] from Last 3 Months or Most Recently Relevant to Health Maintenance Insurance [facility] Care Teams Drying Machine Back Tender Relationship Specialty Start Date End Date Ana Laura Arzate PA-C [address] [place] [address] [place] [address] PCP - General 08/27/25
--- OUTSIDE RECORDS SUMMARY | 2025-09-08 13:14 | XMS_ITS | Clinical Summary ---
Author Organization [facility] Address [address] [place] [address] Care Team Providers Care Media Reconciliation Specialist Name Role Phone Stiven Kay MD Primary Care Provider + [phone] Source Comments Please note that some or [...] so, obtain the minor's consent prior to disclosure.[facility] Social History Tobacco Use Types Packs/Day Years Used Date Smoking Tobacco: Never Assessed Comments Unknown Sex and Gender Information Value Date Recorded Sex Assigned at Not on file Legal Sex Female 2:28 AM EST Gender Identity Not on file Sexual Orientation Not on file Plan of Treatment Not on file Insurance GENERIC Care Teams Media Reconciliation Specialist Relationship Specialty Start Date End Date Stiven Kay MD [address] [place] [phone] PCP - General General Pediatrics 08/25/21
--- OUTSIDE RECORDS SUMMARY | 2025-09-08 13:16 | XMS_ITS | Encounter Summary ---
Author Organization [facility] Address [address] [place] [address] [place] [address] Phone Care Team Providers Care Consultants Intern Name Role Phone Isaias House, February Lupe L[place]ON Primary Care Pr ovider Ana Laura Reis Primary Care Provider Encounter Details Date Type Department Care Team (Late st Contact Info) Description 07/14/2023 Procedure Pass OR Admitting Dept - Virtual Department [address] [place] [address] Social History Tobacco Use Types Packs/Day Years [...] on filedocumented in this encounter Care Teams Consultants Intern Relationship Specialty Start Date End Date Isaias House Farrah LITA Andrade [email or web address] PCP - General Nurse Practitioner 03/27/23 03/27/25 Ana Laura Reis PA [address] [place] [address] [place] [phone] PCP - General Physician Land Department Head 03/28/25 documented as of this encounter Additional Source Comments The information contained in this document represents components of the legal health record. It is not the complete legal health record.[facility]
--- OUTSIDE RECORDS SUMMARY | 2025-09-08 13:17 | XMS_ITS | Encounter Summary ---
Author Organization [facility] Address [address] [place] [address] Care Team Providers Care Talent Acquisition Partner Name Role Phone Stiven Kay MD Primary Care Provider [phone] Encounter Details Date Type Department Care Team ([facility] Contact Info) Description 10/01/2013 Scanned Document [facility] [address], [address] [place], [place] [address] Urban, Brandin Pike, CHAINSTITCH ZIPPER SETTER [address] [facility] [address] [facility] [address] [place] [address] Social History Tobacco Use Types [...] documented as of this encounter Care Teams Talent Acquisition Partner Relationship Specialty Start Date End Date Stiven Kay MD [address] [place] [phone] PCP - General Pediatrics 11/27/15 documented as of this encounter
--- OUTSIDE RECORDS SUMMARY | 2025-09-08 13:17 | XMS_ITS | Encounter Summary ---
Author Organization [facility] Address [address] [place] [address] Care Team Providers Care Hadoop Infrastructure Architect Name Role Phone Ana Laura Arzate PA-C Primary Car e Provider Encounter Details Date Type Department Care Team ([facility] Contact Info) Description 09/05/2025 Scanned Document [facility] [address] [place] [address] Jaime Hawthorne MD [address] [place] [phone] Social History Tobacco Use Types Packs/Day Years [...] Upcoming Encounters Date Type Department Care Team ([facility] Contact Info) Description 09/10/2025 8:30 AM EDT Appointment [facility] [place] [address] [place] [address] Jaime Hawthorne MD [address] [place] [address] 09/16/2025 10:00 AM EST Office Visit [facility] [address], [place] [address] Jaime Hawthorne MD [address] [place] [address] documented as of this encounter Visit Diagnoses Not on filedocumented in this encounter Care Teams Hadoop Infrastructure Architect Relationship Specialty Start Date End Date Ana Laura Arzate PA-C [address] [place] [address] [place] [address] PCP - General 08/27/25 documented as of this encounter
--- OUTSIDE RECORDS SUMMARY | 2025-09-08 13:17 | XMS_ITS | Encounter Summary ---
Author Organization [facility] Address [address] [place] [address] Care Team Providers Care Welding Machine Operator Friction Name Role Phone Stiven Kay MD Primary Care Provider [phone] Encounter Details Date Type Department Care Team ([facility] Contact Info) Description 09/18/2013 Scanned Document [facility] [place] [address], [address] [place], [place] [address] Urban, Brandin Pike, BRASS WIND INSTRUMENT MAKER [address] [facility] [address] [facility] [address] [place] [phone] Social History Tobacco Use Types Packs/Day Years [...] documented as of this encounter Care Teams Welding Machine Operator Friction Relationship Specialty Start Date End Date Stiven Kay MD [address] [place] [phone] PCP - General Pediatrics 11/27/15 documented as of this encounter
--- OUTSIDE RECORDS SUMMARY | 2025-09-08 13:17 | XMS_ITS | Encounter Summary ---
Author Organization [facility] Address [address] [place] [address] Care Team Providers Care Top And Seat Cover Fitter Name Role Phone Ana Laura Arzate PA-C Primary Car e Provider Encounter Details Date Type Department Care Team ([facility] Contact Info) Description 09/05/2025 Scanned Document [facility] [address] [place] [address] Jaime Hawthorne MD [address] [place] [phone] Social History Tobacco Use Types Packs/Day Years [...] Upcoming Encounters Date Type Department Care Team ([facility] Contact Info) Description 09/10/2025 8:30 AM EDT Appointment [facility] [place] [address] [place] [address] Jaime Hawthorne MD [address] [place] [address] 09/16/2025 10:00 AM EST Office Visit [facility] [address], [place] [address] Jaime Hawthorne MD [address] [place] [address] documented as of this encounter Visit Diagnoses Not on filedocumented in this encounter Care Teams Top And Seat Cover Fitter Relationship Specialty Start Date End Date Ana Laura Arzate PA-C [address] [place] [address] [place] [address] PCP - General 08/27/25 documented as of this encounter
--- OUTSIDE RECORDS SUMMARY | 2025-09-08 13:17 | XMS_ITS | Encounter Summary ---
Author Organization [facility] Address [address] [facility] [address] [place] [address] Phone Care Team Providers Care Solid Fiber Paster Operator Name Role Phone Isaias House February Lupe [...] COMBO Alistair Bender MD Phone: tel: fax: [email or web address] Referral ID Status Reason Start Date Expiration Date Visits Re quested Visits Authorized [id number] Closed 08/10/2023 11/06/2023 1 1 Encounter Details Date Type Department Care Team ([facility] st Contact Info) Description 04/19/2023 Transcribe Orders Virtual Department [address] [place] [address] Alistair Bender MD [address] [address] Palpable mass of lower back (Primary Dx) [...] back documented in this encounter Care Teams Solid Fiber Paster Operator Relationship Specialty Start Date End Date Isaias House February LITA Andrade [email or web address] PCP - General Nurse Practitioner 03/27/23 03/27/25 Ana Laura Reis PA [address] [place] [address] [place] [phone] PCP - General Physician Scanning Coordinator 03/28/25 documented as of this encounter Additional Source Comments The information contained in this document represents components of the legal health record. It is not the complete legal health record.[facility]
--- OUTSIDE RECORDS SUMMARY | 2025-09-08 13:17 | XMS_ITS | Encounter Summary ---
Author Organization [facility] Address [address] [place] [address] Care Team Providers Care Monitoring Specialist Name Role Phone Ana Laura Arzate PA-C Primary Car e Provider Encounter Details Date Type Department Care Team (Late st Contact Info) Description 08/28/2025 Scanned Document [facility] Pre-Admission Testing Center in [address] [place] [phone] Ana Laura Arzate PA-C [address] [place] [address] Social History Tobacco Use Types Packs/Day Years [...] Info) Description 09/10/2025 8:30 AM EDT Appointment [facility] [address] [place] [address] Jaime Hawthorne MD [address] [place] [phone] 09/16/2025 10:00 AM EST Office Visit [facility] [address] [place] [address] Jaime Hawthorne MD [address] [place] [address] documented as of this encounter Visit Diagnoses Not on filedocumented in this encounter Care Teams Monitoring Specialist Relationship Specialty Start Date End Date Ana Laura Arzate PA-C [address] [place] [address] [place] [address] PCP - General 08/27/25 documented as of this encounter
--- OUTSIDE RECORDS SUMMARY | 2025-09-08 13:17 | XMS_ITS | Encounter Summary ---
Author Organization [facility] Address [address] [place] [phone] Care Team Providers Care Assistant Clinical Director Name Role Phone Stiven Kay MD Primary Care Provider [phone] Encounter Details Date Type Department Care Team (Late st Contact Info) Description 11/20/2013 Scanned Document [facility] [address], [address] [place] [address] [facility], Brandin Pike, SPRAY DYER [address] [facility] [address] [facility] [address] [place] [phone] Social History Tobacco Use Types Packs/Day Years [...] documented as of this encounter Care Teams Assistant Clinical Director Relationship Specialty Start Date End Date Stiven Kay MD [address] [place] [phone] PCP - General Pediatrics 11/27/15 documented as of this encounter
--- OUTSIDE RECORDS SUMMARY | 2025-09-08 13:17 | XMS_ITS | Encounter Summary ---
Author Organization [facility] Address [address] [place] [address] Care Team Providers Care Regulatory Scientist Name Role Phone Stiven Kay MD Primary Care Provider [phone] Encounter Details Date Type Department Care Team ([facility] Contact Info) Description 09/18/2013 Scanned Document [facility] [place] [address], [address] [place], [place] [address] Urban, Brandin Pike, DOG CONTROL OFFICER [address] [facility] [address] [facility] [address] [place] [phone] Social History Tobacco Use Types Packs/Day Years [...] documented as of this encounter Care Teams Regulatory Scientist Relationship Specialty Start Date End Date Stiven Kay MD [address] [place] [phone] PCP - General Pediatrics 11/27/15 documented as of this encounter
--- OUTSIDE RECORDS SUMMARY | 2025-09-08 13:17 | XMS_ITS | Encounter Summary ---
Author Organization [facility] Address [address] [place] [phone] Care Team Providers Care Provisioning Analyst Name Role Phone Stiven Kay MD Primary Care Provider [phone] Encounter Details Date Type Department Care Team ([facility] st Contact Info) Description 10/02/2019 Scanned Document [facility] [place] [address], [address] [place] [address] [facility], Brandin Pike, DIRECTOR OF PROPERTY MANAGEMENT [address] [facility] [address] [facility] [address] [place] [phone] Social History Tobacco Use Types Packs/Day Years [...] documented as of this encounter Care Teams Provisioning Analyst Relationship Specialty Start Date End Date Stiven Kay MD [address] [place] [phone] PCP - General Pediatrics 11/27/15 documented as of this encounter
--- OUTSIDE RECORDS SUMMARY | 2025-09-08 13:17 | XMS_ITS | Encounter Summary ---
Author Organization [facility] Address [address] [facility] [address] [place] [address] Phone Care Team Providers Care Acoustic Warfare Analyst Name Role Phone Isaias House, February Lupe [...] CONTRAST Alistair Bender MD Phone: tel: fax: [email or web address] Referral ID Status Reason Start Date Expiration Date Visits Re quested Visits Authorized [id number] Closed 08/10/2023 01/11/2024 1 1 Encounter Details Date Type Department Care Team (Late st Contact Info) Description 06/14/2023 Transcribe Orders Virtual Department [address] [place] [address] Alistair Bender MD [address] [address] [email or web address] Palpable mass of lower back [...] back documented in this encounter Care Teams Acoustic Warfare Analyst Relationship Specialty Start Date End Date Isaias House, February LITA Andrade [email or web address] PCP - General Nurse Practitioner 03/27/23 03/27/25 Ana Laura Reis PA [address] [place] [address] [place] [phone] PCP - General Physician Batch Still Operator 03/28/25 documented as of this encounter Additional Source Comments The information contained in this document represents components of the legal health record. It is not the complete legal health record.[facility]
--- OUTSIDE RECORDS SUMMARY | 2025-09-08 13:17 | XMS_ITS | Encounter Summary ---
Author Organization [facility] Address [address] [place] [address] Phone Care Team Providers Care Cell Inspector Name Role Phone Pcp, Unknown Primary Care Provider Unavailmanuel e Kirsten Ruiz NP Primary Care Pr ovider Ana Laura Reis Primary Care Provider Reason for Referral * Consultation (Routine) - Closed Specialty Diagnoses / Procedures Referred By Sheila perez Referred To Contact Genetics Diagnoses Family history of malignant neoplasm of breast Kirsten Ruiz NP Phone: tel: fax: mailto:[email or web address] [email or web address] [address] [place] [address] Phone: tel: Referral ID Status Reason Start Date Expiration Date Visits Re quested Visits Authorized [id number] Closed 03/21/2023 03/21/2024 1 1 Encounter Details Date Type Department Care Team (Latest Contact Info) Description 03/21/2023 Transcribe Orders Virtual Department [address] [place] [address] Kirsten Ruiz NP [address] [place] [address] [email or web address] Family history of malignant neoplasm of breast [...] Associated Diagnoses Order Schedule Ambulatory referral to [facility] Outpatient Referral Routine Family history of malignant neoplasm of breast Ordered: 03/21/2023 documented as of this encounter Visit Diagnoses Diagnosis Family history of malignant neoplasm of breast- Primary documented in this encounter Care Teams Cell Inspector Relationship Specialty Start Date End Date Pcp, Unknown PCP - General 06/13/21 03/26/23 [facility] February LITA Andrade [email or web address] PCP - General Nurse Practitioner 03/27/23 03/27/25 Ana Laura Reis PA [address] [place] [address] [place] [phone] PCP - General Physician Electrolog Operator 03/28/25 documented as of this encounter Additional Source Comments The information contained in this document represents components of the legal health record. It is not the complete legal health record.[facility]
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
--- OUTSIDE RECORDS SUMMARY | 2025-09-08 13:19 | XMS_ITS | Encounter Summary ---
Author Organization [facility] Address [address] [facility] [address] [place] [address] Phone Care Team Providers Care Barrel Rifler Hook Name Role Phone Farrah Ruiz POWER BENDER OPERATOR Primary Care Pr ovider Ana Laura Reis Primary Care Provider Encounter Details Date Type Department Care Team (Late st Contact Info) Description 10/02/2023 Transcribe Orders [facility] [address] [place], [place] [id number] Farrah Ruiz, LITA [address] [place] [address] [email or web address] Social History Tobacco Use Types Packs/Day Years [...] on filedocumented in this encounter Care Teams Barrel Rifler Hook Relationship Specialty Start Date End Date Isaias House, February LITA Andrade [email or web address] PCP - General Nurse Practitioner 03/27/23 03/27/25 Ana Laura Reis PA [address] [place] [address] [place] [phone] PCP - General Physician Business Improvement Manager 03/28/25 documented as of this encounter Additional Source Comments The information contained in this document represents components of the legal health record. It is not the complete legal health record.[facility]
--- OUTSIDE RECORDS SUMMARY | 2025-09-08 13:19 | XMS_ITS | Encounter Summary ---
Author Organization [facility] Address [address] [place] [address] [place] [address] Phone Care Team Providers Care Psychological Examiner Name Role Phone Isaias House February Lupe LONDON Primary Care Pr ovider Ana Laura Reis Primary Care Provider Reason for Referral * MRI/CAT Scan - Closed Specialty Diagnoses / Procedures Referred By Contac t Referred To Contact Radiology Diagnoses Cervicalgia Procedures CT Thoracic Spine CHG CT SCAN,THORACIC SPINE,W/O CONTRAST Dae Almaguer NP [address] [place] [address] Phone: tel: fax: Referral ID Status Reason Start Date Expiration Date Visits Re quested Visits Authorized [id number] Closed 03/28/2025 06/12/2025 1 1 * MRI/CAT Scan - Closed Specialty Diagnoses / Procedures Referred By Contac t Referred To Contact Radiology Diagnoses Unspecified injury of head, subsequent encounter Procedures MRI Brain CHG MRI BRAIN Dae Almaguer NP [address] [place] [address] Phone: tel: fax: Referral ID Status Reason Start Date Expiration Date Visits Re quested Visits Authorized [id number] Closed 03/21/2025 09/21/2025 1 1 Encounter Details Date Type Department Care Team (Latest Contact Info) Description 03/21/2025 Transcribe Orders Virtual Department [address] [place] [address] Dae Almaguer NP [address] [place] [address] Unspecified injury of head, subsequent encounter (Primary [...] or significant degenerative change. Dae S Rosina ELECTRICAL ENGINEERING DRAFTSPERSON IMG CT XSPECIALTY ORDERABLES F inal Result * MRI BRAIN WITHOUT CONTRAST (03/28/2025 8:45 AM EDT) Anatomical Region Laterality Modality Head Magnetic Resonan ce 04/01/2025 11:2 9 AM EDT Impressions 04/01/2025 11:33 AM EDT 1. Normal noncontrast brain MRI. Narrative 04/01/2025 11:33 AM EDT MRI BRAIN WITHOUT CONTRAST Referring clinician's provided indication for this examination in [facility]: Outside Radiology Order; injury of head [...] clinician's provided indication for this examination in [facility]:Outside Radiology Order; injury of head TECHNIQUE: [...] 1. Normal noncontrast brain MRI. Dae Almaguer ELECTRICAL ENGINEERING DRAFTSPERSON IMG MR HEAD/NECK Final Result documented in this encounter Visit Diagnoses Diagnosis Unspecified injury of head, subsequent encounter- Primary Cervicalgia Unspecified injury of head, subsequent encounter Cervicalgia documented in this encounter Care Teams Psychological Examiner Relationship Specialty Start Date End Date Isaias House, February LITA Andrade [email or web address] PCP - General Nurse Practitioner 03/27/23 03/27/25 Ana Laura Reis PA [address] [place] [address] [place] [phone] PCP - General Physician Rn On Site 03/28/25 documented as of this encounter Additional Source Comments The information contained in this document represents components of the legal health record. It is not the complete legal health record.[facility]
--- OUTSIDE RECORDS SUMMARY | 2025-09-08 13:19 | XMS_ITS | Encounter Summary ---
Author Organization [facility] Address [address] [facility] [address] [place] [address] Phone Care Team Providers Care Cash Register Balancer Name Role Phone Isaias House, February Lupe LONDON Primary Care Pr ovider Ana Laura Reis Primary Care Provider Encounter Details Date Type Department Care Team (Late st Contact Info) Description 04/19/2023 Procedure Pass [address] [place] [address] Social History Tobacco Use Types Packs/Day Years [...] on filedocumented in this encounter Care Teams Cash Register Balancer Relationship Specialty Start Date End Date Isaias House Farrah LITA Andrade [email or web address] PCP - General Nurse Practitioner 03/27/23 03/27/25 Ana Laura Reis PA [address] [place] [address] [place] [phone] PCP - General Physician Planishing Press Operator 03/28/25 documented as of this encounter Additional Source Comments The information contained in this document represents components of the legal health record. It is not the complete legal health record.[facility]
--- OUTSIDE RECORDS SUMMARY | 2025-09-08 13:19 | XMS_ITS | Encounter Summary ---
Author Organization [facility] Address [address] [facility] [address] [place] [address] Phone Care Team Providers Care Mail Officer Name Role Phone Ana Laura Reis Primary Care Provider Encounter Details Date Type Department Care Team (Late st Contact Info) Description 03/28/2025 Ancillary Orders [facility], X-Ray - [address] [address] Freddy Harden, RAQUEL [facility] [place] [address] Low back pain, unspecified back [...] Primary documented in this encounter Care Teams Mail Officer Relationship Specialty Start Date End Date Ana Laura Reis PA [address] [place] [address] [place] [address] PCP - General Physician Hydraulic Miner Blasting 03/28/25 documented as of this encounter Additional Source Comments The information contained in this document represents components of the legal health record. It is not the complete legal health record.[facility]
--- OUTSIDE RECORDS SUMMARY | 2025-09-08 13:19 | XMS_ITS | Encounter Summary ---
Author Organization [facility] Address [address] [place] [address] Care Team Providers Care High School Tutor Name Role Phone Stiven Kay MD Primary Care Provider [phone] Reason for Visit * Reason Comments Medication Refill Encounter Details Date Type Department Care Team (Late st Contact Info) Description 10/21/[address] [id number] Jorge L, Brandin Pike, EXERCISER [address] [facility] [address] [place] [address] Medication Refill Social History Tobacco [...] documented as of this encounter Care Teams High School Tutor Relationship Specialty Start Date End Date Stiven Kay MD [address] [place] [phone] PCP - General Pediatrics 11/27/15 documented as of this encounter
--- OUTSIDE RECORDS SUMMARY | 2025-09-08 13:19 | XMS_ITS | Encounter Summary ---
Author Organization [facility] Address [address] [place] [address] Care Team Providers Care Sheet Metal Technician Name Role Phone Pcp, No Primary Care Provider Unavailabl e System, Provider Not In Primary Care Provider Un available Ana Laura Arzate PA-C Primary Car e Provider Ana Laura Arzate PA-C Primary Car e Provider Encounter Details Date Type Department Care Team (Late st Contact Info) Description 08/20/2021 Scanned Document [facility] [address] [address] Provider, MD John [address] [place] [address] Social History Tobacco Use Types Packs/Day Years [...] Info) Description 09/10/2025 8:30 AM EDT Appointment [facility] [address] [place] [address] [address] [place] [address] Jaime Hawthorne MD [address] [place] [phone] 09/16/2025 10:00 AM EST Office Visit [facility] [place] [address] [facility], [place] [address] Jaime Hawthorne MD [address] Payton [address] [place] [phone] documented as of this encounter Visit Diagnoses Not on filedocumented in this encounter Care Teams Sheet Metal Technician Relationship Specialty Start Date End Date Pcp, No PCP - General 03/12/25 03/17/25 System, Provider Not In PCP - General 03/18/25 08/04/25 Ana Laura Arzate PA-C [address] [place] [address] PCP - General 08/05/25 08/26/25 Ana Laura Arzate PA-C [address] [place] [address] PCP - General 08/27/25 documented as of this encounter
--- OUTSIDE RECORDS SUMMARY | 2025-09-08 13:19 | XMS_ITS | Encounter Summary ---
Author Organization [facility] Address [address] [facility] [address] [place] [address] Phone Care Team Providers Care Hand Model Name Role Phone Isaias House, February Lupe LONDON Primary Care Pr ovider Ana Laura Reis Primary Care Provider Encounter Details Date Type Department Care Team (Late st Contact Info) Description 06/14/2023 Procedure Pass [address] [place] [address] Social History Tobacco Use Types Packs/Day Years [...] on filedocumented in this encounter Care Teams Hand Model Relationship Specialty Start Date End Date Isaias House Farrah LITA Andrade [email or web address] PCP - General Nurse Practitioner 03/27/23 03/27/25 Ana Laura Reis PA [address] [place] [address] [place] [phone] PCP - General Physician Coffee Roaster Helper 03/28/25 documented as of this encounter Additional Source Comments The information contained in this document represents components of the legal health record. It is not the complete legal health record.[facility]
--- OUTSIDE RECORDS SUMMARY | 2025-09-08 13:19 | XMS_ITS | Clinical Summary ---
Author Organization [facility] Address [address] [place] [address] Phone Care Team Providers Care Gas Refrigerator Servicer Name Role Phone Ana Laura Reis Primary [...] Medical Devices Not on file Insurance OUT [facility] POS OUT OF [facility] POS BLUE CROSS OUT OF STATE POS BLUE CROSS OUT OF STATE POS BLUE CROSS OUT OF STATE POS BLUE CROSS OUT STATE POS PROGRESSIVE INSURANCE Advance Directives For more information, please contact: [phone] (9AM - 5PM [place], Monday-Monday) * Full Code (Latest Code Status on File) Date Activated Date Inactivated Comments 07/14/2023 7:47 AM Question Answer Comments Code Status Confirmed With: Patient Care Teams Gas Refrigerator Servicer Relationship Specialty Start Date End Date Ana Laura Reis PA [address] [place] [address] [place] [phone] PCP - General Physician Graphics Editor 03/28/25 Additional Source Comments The information contained in this document represents components of the legal health record. It is not the complete legal health record.[facility]
--- OUTSIDE RECORDS SUMMARY | 2025-09-08 13:19 | XMS_ITS | Encounter Summary ---
Author Organization [facility] Address [address] [facility] [address] [place] [address] Phone Care Team Providers Care Field Installer Name Role Phone Isaias House February Lupe LONDON Primary Care Pr ovider Ana Laura Reis Primary Care Provider Encounter Details Date Type Department Care Team (Late st Contact Info) Description 03/24/2025 Procedure Pass [facility], Ct Scan - [address] [address] Social History Tobacco Use Types Packs/Day Years [...] on filedocumented in this encounter Care Teams Field Installer Relationship Specialty Start Date End Date Isaias House Farrah LITA Andrade [email or web address] PCP - General Nurse Practitioner 03/27/23 03/27/25 Ana Laura Reis PA [address] [place] [address] [place] [phone] PCP - General Physician Collar Tailor 03/28/25 documented as of this encounter Additional Source Comments The information contained in this document represents components of the legal health record. It is not the complete legal health record.[facility]
--- OUTSIDE RECORDS SUMMARY | 2025-09-08 13:19 | XMS_ITS | Encounter Summary ---
Author Organization [facility] Address [address] [facility] [address] [place] [address] Phone Care Team Providers Care Intelligence Applications Name Role Phone Isaias House February Lupe LONDON Primary Care Pr ovider Ana Laura Reis Primary Care Provider Encounter Details Date Type Department Care Team (Late st Contact Info) Description 03/21/2025 Procedure Pass [facility], [address] [address] Social History Tobacco Use Types Packs/Day Years [...] on filedocumented in this encounter Care Teams Intelligence Applications Relationship Specialty Start Date End Date Isaias House Farrah LITA Andrade [email or web address] PCP - General Nurse Practitioner 03/27/23 03/27/25 Ana Laura Reis PA [address] [place] [address] [place] [phone] PCP - General Physician Lead Handler 03/28/25 documented as of this encounter Additional Source Comments The information contained in this document represents components of the legal health record. It is not the complete legal health record.[facility]
== END 2025-09-08 11:31 | disposition home or self-care (01) ==
LOC: HO.PMC 10:47
PROVIDERS: PCP Family Medicine; Visit Provider Internal Medicine
DX: M47.816 Spondylosis without myelopathy or radiculopathy, lumbar region (principal); M54.81 Occipital neuralgia
CPT/HCPCS: 64405; 64450; 99204

== ENCOUNTER → 2025-09-08 10:46 | Outpatient (BNVA) | payer BC, SELFPAY | PROVIDERS: PCP Family Medicine; Visit Provider Internal Medicine | DX: M54.81 Occipital neuralgia (principal); G89.29 Other chronic pain; Q79.60 Ehlers-Danlos syndrome, unspecified | CPT/HCPCS: 64405; 64450; J2795 ==

== ENCOUNTER 2025-10-22 09:48 | Outpatient (AMB) | payer BC, SELFPAY ==
--- NOTE | 2025-10-22 09:53 | MHC.OFFVIS ---
Vital Signs 10/22/25 09:54 Height 5 ft 4 in Weight 163 lb BMI 28.0 BP 116/76 Blood Pressure Location Lt brachial Position Sitting Pulse 114 H Pulse Source Pulse Oximeter Pulse Oximetry (%) 95 Oxygen Delivery Method Room Air Intake Visit Reasons: FOLLOW UP AFTER NB Intake Note: RM 1 Crew Mess Attendant: Crew Mess Attendant offered & declined Allergies No Known Allergies Allergy (Verified 10/22/25 09:55) Medication List - Last Reconciled 10/22/25 by Katja Marsh, INVESTIGATION OFFICER acyclovir 400 mg PO BID blood sugar diagnostic (FreeStyle Test strips) As directed blood-glucose sensor (Dexcom G6 Sensor device) As directed blood-glucose transmitter (Dexcom G6 Transmitter device) As directed bupropion HCl XL 300 mg PO DAILY cyclobenzaprine 5 mg PO TID PRN escitalopram oxalate (Lexapro) 20 mg PO DAILY famotidine 40 mg PO BID fluticasone propionate 50 mcg/actuation 2 sprays intranasal DAILY insulin aspart (niacinamide) 100 unit/mL (Fiasp U-100 Insulin) Omnipod pump insulin pump cart,auto,BT-cntr (Omnipod 5 G6 Intro Kit (Gen 5) subcutaneous cartridge with controller) As directed insulin pump cart,automated,BT (Omnipod 5 G6 Pods (Gen 5) subcutaneous cartridge) As directed ondansetron HCl 8 mg PO TID pantoprazole 40 mg PO DAILY pregabalin (Lyrica) 25 mg PO BID semaglutide (Ozempic) 0.25 mg subcut QWEEK HPI Comments Details: History of Present Illness The patient is a 25 year old female presenting for follow-up and management of occipital neuralgia. She underwent bilateral occipital nerve blocks approximately six weeks prior to this visit. She reported initial soreness immediately following the procedure, but after a few days noticed that her pain was less frequent and less intense, although it was not fully resolved. Pain Description - The patient reports that following her last occipital nerve block, her pain became less frequent and less intense. - She notes that the pain is still present but is not as severe as it was before the procedure. Pain Management - Analgesia: The patient reports partial pain relief from a prior occipital nerve block, noting the pain is less frequent and intense, though still present. - Adverse Effects: She experienced soreness right after the previous injection. - Affect: Not discussed. - Activities of Daily Living: Not discussed. - Aberrant Drug-Related Behavior: Not discussed. [facility] Medical History (Updated 09/05/25 @ 16:30 by Brisa Verdugo APRN, POLLUTION CONTROL ENGINEER) Herpes simplex type 1 infection Type 1 diabetes mellitus Moderate recurrent major depression Generalized anxiety disorder Polycystic ovary Surgical History (Updated 04/05/24 @ 11:50 by Mare Pappas RN) History of skin surgery H/O laparoscopy History of carpal tunnel release Social History (Updated 10/20/23 @ 11:17 by Christiane Farmer) Household Members: Spouse Housing: Apartment Alcohol intake: current Alcohol intake frequency: a few times a month Patient Tobacco Use Status: Never used Tobacco Substance Use Type: Marijuana and Caffiene service: No Current occupational status: unemployed Physical Exam Exam Exam: Physical Exam - Constitutional: Patient examined in a sitting position. - Skin: The skin overlying the bilateral greater and lesser occipital nerves was prepped with Chloraprep prior to injection. Procedure - Procedure: Bilateral greater and lesser occipital nerve block. - Informed Consent: Consent was obtained prior to the procedure. - Procedure Details: The patient was placed in a sitting position, and the areas overlying the greater and lesser occipital nerves were cleaned with Chloraprep. - A 25-gauge needle was used to infiltrate 3 mL of 0.5% bupivacaine in a fan-like motion to cover both nerves on each side. - Tolerance: The patient tolerated the procedure well. Vital Signs: Last Vital Signs Pulse 114 H 10/22/25 09:54 BP 116/76 10/22/25 09:54 Pulse Ox 95 10/22/25 09:54 Oxygen Delivery Method Room Air 10/22/25 09:54 BMI result Body Mass Index 28.0 Assessment & Plan Assessment & Plan (1) Occipital neuralgia: Code(s): M54.81 - Occipital neuralgia Category: Medical Plan Plan Patient was informed and verbally consented to the use of an ambient scribe for clinic note documentation during this visit. 1. Occipital Neuralgia - The patient reported partial benefit from her previous occipital nerve block, with less frequent and intense pain. - After discussion, she consented to a repeat bilateral occipital nerve block, which was performed during the visit. - The procedure was performed with 0.5% bupivacaine only; steroids were not used due to the patient's young age and the risks associated with long-term, repeated steroid injections. - The patient will follow up in six weeks to assess her response and for a possible repeat injection. Discussion Notes I discussed the outcome of the patient's prior occipital nerve block, which she reported provided partial relief with less frequent and less intense pain. We discussed repeating the procedure, and she was agreeable. I addressed her question about using steroids and recommended against it due to her young age and the potential cumulative effects from repeated injections over her lifetime. She understood and consented to proceed with a bupivacaine-only injection. The patient tolerated the procedure well and is scheduled to follow up in six weeks. Patient Instructions - You may have some soreness at the injection sites, which is normal. - Please return to the clinic in six weeks for a follow-up appointment to see how you are doing. Coding Level of Care Code Procedure Only Diagnoses Occipital neuralgia M54.81
[2025-10-22 09:54] VITALS: BP 116/76; PULSE 114; O2SAT 95; BMI 28.0
== END 2025-10-22 10:40 | disposition home or self-care (01) ==
LOC: HO.PMC 09:49
PROVIDERS: PCP Family Medicine; Visit Provider Internal Medicine
DX: M54.81 Occipital neuralgia (principal)
CPT/HCPCS: 64405; 64450

== ENCOUNTER → 2025-10-22 09:48 | Outpatient (BNVA) | payer BC, SELFPAY | PROVIDERS: PCP Family Medicine; Visit Provider Internal Medicine | DX: M54.81 Occipital neuralgia (principal) | CPT/HCPCS: 64405; 64450 ==